=== PATIENT | female | born 1985 | race Caucasian/White ===

== ENCOUNTER → 2019-11-10 | Outpatient (CLI) | payer OTHER ==
[~2019-11-10] VITALS: Ht 167.6 cm; Wt 56.2 kg
[~2019-11-10] MED LIST: BOTOX THERAPEUTIC 100 UNIT VIAL (J0585 PER 1 UNIT) IM ONE; diazePAM 5 MG TAB As Ordered ONE; oxyCODONE 5MG TAB As Ordered ONE
--- NOTE | 2019-11-11 04:55 | ECWPNPC ---
PATIENT NAME: CHARANJIT POST : 1985 GENDER: FEMALE VISIT DATE: 11/10/2019 DISCHARGE DATE: 11/10/19 1338 VISIT LOCKED DATE TIME: PHYSICIAN: RELL WOO MD RESOURCE: RELL WOO MD REASON FOR APPOINTMENT 1. BOTOX HISTORY OF PRESENT ILLNESS GENERAL: -. FALL RISK SCREENING: SCREENING :NO FALLS REPORTED IN THE LAST YEAR PAIN SCREENING: PATIENT HAS A COMPLAINT OF ACUTE OR CHRONIC PAIN :YES 11/10/19 INTENSITY OF PAIN (SCALE OF 1 TO 10):1 WHAT DOES YOUR PAIN FEEL LIKE:INTERMITTENT, THROBBING DURATION:INTERMITTENT PAIN IS INCREASED BY: LIGHTS, LOUD NOISES PAIN IS DECREASED BY: BOTOX INJECTIONS, QUIET, DARKNESS NURSING NOTE: -. PAIN CENTER INTAKE QUESTIONS: DO YOU HAVE A HISTORY OF MRSA? :NO DO YOU TAKE A BLOOD THINNERS? :NO DO YOU HAVE ANY BLEEDING DISORDERS? :NO ANY NEW NUMBNESS OR WEAKNESS IN YOUR LEGS OR ARMS? :NO ANY PACEMAKER,DEFIBRILLATOR, OR DORSAL COLUMN STIMULATOR? :NO DO YOU HAVE ANY RASHES OR OPEN SORES? :NO ARE YOU ALLERGIC TO IV DYE? :NO ARE YOU DIABETIC? :NO ANY NEW PROBLEMS WITH YOUR MEDICATIONS? :NO HAVE YOU RECEIVED A VACCINE IN THE PAST 30 DAYS? :NO DO YOU PLAN TO RECEIVE A VACCINE IN THE NEXT 21 DAYS? :NO DO YOU TAKE ANY IMMUNOSUPPRESSIVE MEDICATIONS? :NO ANY HISTORY OF SEIZURES? :NO ANY HISTORY OF CARDIAC ISSUES OR EVENTS? :NO DO YOU HAVE SLEEP APNEA? : NO. ANY RECENT HEAD INJURY? :NO DO YOU HAVE ANY NEW INFECTIONS? :NO IS THERE A CHANCE YOU COULD BE ? :NO ARE YOU BREAST FEEDING? :NO WHEN DID YOU LAST EAT? : 11/09 020 WHEN DID YOU LAST DRINK? : 11/09 07 WHAT DID YOU LAST DRINK? : WATER NAME OF PERSON DRIVING YOU HOME? : - LAY DO YOU HAVE ANY OTHER QUESTIONS OR CONCERNS? : NO CURRENT MEDICATIONS TAKING CALCIUM + D 600-200 MG-UNIT TABLET 1 TABLET ORALLY ONCE A DAY, NOTES: 1 MONTH AGO TAKING CLONIDINE HCL 0.3 MG TABLET 2 TABLETS ORALLY ONCE A DAY, NOTES: 11/08 2200 TAKING BENADRYL 25 MG ORAL 3 TABLETS DIRECTED, NOTES: 11/08 1400 TAKING XANAX 1 MG TABLET 1 TABLET ORALLY DAILY, NOTES: 11/08 1000 TAKING ALPRAZOLAM ER 3 MG TABLET EXTENDED RELEASE 24 HOUR 1 TABLET IN THE MORNING ORALLY ONCE A DAY, NOTES: 11/08 699 TAKING GABAPENTIN 300 MG CAPSULE 1 CAPSULE ORALLY BID, NOTES: 11/09 699 TAKING EX-LAX 15 MG TABLET 1 TABLET AT BEDTIME NEEDED ORALLY DAILY, NOTES: 11/08 1700 TAKING ALBUTEROL EVERY 4 HOURS NEEDED, NOTES: MONTHS AGO TAKING VENLAFAXINE HCL ER 75 MG CAPSULE EXTENDED RELEASE 24 HOUR ORALLY ONCE A DAY, NOTES: 11/09 699 TAKING LINZESS 290 MCG CAPSULE 1 CAPSULE ORALLY ONCE A DAY, NOTES: 11/09 699 TAKING BUSPIRONE HCL 7.5 MG TABLET 1 TABLET ORALLY TWICE A DAY, NOTES: 11/09 699 TAKING NORCO 5-325 MG TABLET 1 TABLET NEEDED ORALLY Q8H TID MDD3, NOTES: 11/09 1999 NOT-TAKING COLACE 100 MG CAPSULE 1 CAPSULE NEEDED ORALLY BID NOT-TAKING METFORMIN HCL ER 500 MG TABLET EXTENDED RELEASE 24 HOUR 3 TABLET ORALLY DAILY AT BEDTIME NOT-TAKING VITAMIN C 500 MG TABLET 1 TABLET ORALLY ONCE A DAY NOT-TAKING PROBIOTIC TABLET DELAYED RELEASE 1 CAPSULE ORALLY DAILY, NOTES: MONTHS AGO NOT-TAKING SELEGILINE HCL 5 MG TABLET 1 TABLET WITH BREAKFAST AND LUNCH ORALLY TWICE A DAY NOT-TAKING SINGULAIR 10 MG TABLET 1 TABLET IN THE EVENING ORALLY ONCE A DAY NOT-TAKING TRAMADOL HCL 50 MG TABLET 1/2 - 1 TABLET ORALLY EVERY 6 -8 HRS PRN PAIN NOT-TAKING DICLOFENAC POTASSIUM 50 MG TABLET 1 TABLET ORALLY TWICE A DAY, NOTES: NONE RECENT-DIDN'T HELP MEDICATION LIST REVIEWED AND RECONCILED WITH THE PATIENT PAST MEDICAL HISTORY SCOLIOSIS - MINIMAL DEXTRO-CONVEX CURVATURE - SCOLIOSIS SERIES ON 01/2009 ENDOMETRIOSIS ON LUPRON FOR INTERMITT 2 YEARS/ S/P 2 LASER LAPROSCOPIES OSTEOPOROSIS/OSTEOPENIA DUE TO LUPRON RX/ DEXA SCAN ON 03/2009 LUMBAR SPINE NORMAL BMD FOR AGE OCD/ SOCIAL ANXIETY/ BULEMIA NERVOSA PURGING TYPE/ DEPRESSIVE DISORDER/ ANXIETY PSORIASIS/SEBORRHEIC DERMATITIS RIGHT HALLUX VALGUS DEFORMITY S/P RT BUNIONECTOMY 2010 GANGLION LEFT HAND- W/ NL RADIOGRAPH S/P SURGICALLY REMOVED BULIMIA NERVOSA PURGING TYPE POLYCYSTIC OVARIES MIGRAINE ALLERGIC RHINITIS SINUS INFECTION ALLERGIES ENVIRONMENTAL: STUFFY NOSE, ITCHY EYES, SOMETIMES HIVES TYLENOL: CONTRAINDICATION DUE TO GENE MUTATION - CONTRAINDICATION DERMABOND: RASH - ALLERGY SURGICAL HISTORY LASER LAPAROSCOPY FOR ENDOMETRIOSIS WITH FINDING OF MINIMAL ENDOMETRIOSIS WISDOM TOOTH RT BUNIONECTOMY 07/2009 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 MENTAL DISORDER AND COMMITTED SUICIDE, DM PATERNAL GRAND MOTHER: , DM MATERNAL GRAND FATHER: , ? CANCER MATERNAL GRAND MOTHER: , HEART ATTACK, DM SOCIAL HISTORY GENERAL: TOBACCO USE ARE YOU A:CURRENT SMOKER ARE YOU INTERESTED IN QUITTING?THINKING ABOUT QUITTING HAS CUT DOWN ON # OF CIGS/DAY COUNSELED THE PATIENT ON SMOKING CESSATION, EDUCATION CFWFCERE02/19/2020 HOW MANY CIGARETTES A DAY DO YOU SMOKE?5 OR LESS HOW SOON AFTER YOU WAKE UP DO YOU SMOKE YOUR FIRST CIGARETTE?AFTER 60 MIN HOW OFTEN DO YOU SMOKE CIGARETTES?SOME DAYS, BUT NOT EVERY DAY PATIENT COUNSELED ON THE DANGERS OF TOBACCO USE AND URGED TO QUIT:11/10/2019 ADDITIONAL FINDINGS: TOBACCO USER STATES CAN GO A LONG TIME WITHOUT SMOKING WITH NO SIDE EFFECTS SMOKING CESSATION INFORMATION GIVEN02/04/2019 LATEX QUESTIONNAIRE LATEX ALLERGY : HAVE YOU EVER DEVELOPED ANY TYPE OF REACTION AFTER HANDLING LATEX PRODUCTS SUCH RUBBER GLOVES, CONDOMS, DIAPHRAGMS, BALLOONS, SOCKS, OR UNDERWEAR?NO LATEX ALLERGY : HAVE YOU EVER DEVELOPED ANY TYPE OF REACTION DURING OR AFTER DENTAL APPOINTMENT, VAGINAL/RECTAL EXAMINATION, SURGICAL PROCEDURE, OR ANY OTHER EXPOSURE?NO LATEX RISK : HAVE YOU EVER HAD ANY DIFFICULTY BREATHING OR HIVES AFTER EATING OR HANDLING ANY FRUITS, OR VEGETABLES; SUCH KIWI, BANANAS, STONE FRUITS, OR CHESTNUTSNO LATEX RISK : DO YOU HAVE A PREVIOUS PERSONAL HISTORY OF MORE THAN NINE SURGERIES, SPINA BIFIDA, OR REPEATED CATHERIZATIONS? NO LATEX RISK : ARE YOU FREQUENTLY EXPOSED TO LATEX PRODUCTS IN YOUR OCCUPATION?NO DATE ASKED : 11/10/2019 ALCOHOL SCREENING DID YOU HAVE A DRINK CONTAINING ALCOHOL IN THE PAST YEAR?YES HOW MANY DRINKS DID YOU HAVE ON A TYPICAL DAY WHEN YOU WERE DRINKING IN THE PAST YEAR?1 OR 2 (0 POINTS) HOW OFTEN DID YOU HAVE A DRINK CONTAINING ALCOHOL IN THE PAST YEAR?MONTHLY OR LESS (1 POINT) POINTS1 INTERPRETATIONNEGATIVE RECREATIONAL DRUG USE DRUG USE?NO CAFFEINE CAFFEINE USE?YES COFFEE SODA SEXUAL HX HAD SEX IN THE LAST 12 MONTHS (VAGINAL, ORAL, OR ANAL)?YES WITHMEN ONLY PREVENTION STRATEGIES DISCUSSED:OTHER USE PROTECTION?NO LMP:09/29/2016 HAVE YOU EVER HAD AN STD?NO HIV / HEP-C SCREENING HIV TEST OFFERED TO PATIENT:YES DATE OFFERED:05/29/2016 TEST ACCEPTED:NO HEP-C TEST OFFERED TO PATIENT:NO N/A REASON:PATIENT DECLINED QUAKER [id number] RASTAFARI LANGUAGE LANGUAGES SPOKEN:JORDANIAN EDUCATION LEVEL OF EDUCATION:COLLEGE LEARNING BARRIERS / SPECIAL NEEDS CHANGE FROM LAST VISIT?NO BARRIERS TO LEARNING?NO HEARING IMPAIRED?NO VISION IMPAIRED?YES :CORRECTIVE LENSES COGNITIVELY IMPAIRED?NO READINESS TO LEARN?YES LEARNING PREFERENCES?YES :HANDOUTS, DEMONSTRATION/VERBAL INSTRUCTION LEARNING CAPABILITIES PRESENT?YES EMOTIONAL BARRIERS?NO SPECIAL DEVICES?NO LOSS PREVENTION AGENT NEEDED?NO DOMESTIC VIOLENCE DO YOU FEEL SAFE IN YOUR ENVIRONMENT?YES DIET: REGULAR. EXERCISE: WALKS. MARITAL STATUS: . PAIN CLINIC PFS, CLERGY, PUBLIC HEALTH REFERRALS PFS REFERRAL NEEDED?NO CLERGY REFERRAL NEEDED?NO PUBLIC HEALTH REFERRAL NEEDED?NO HAS THE PATIENT BEEN EDUCATED REGARDING HIS/HER PLAN OF CARE?YES HAS THE PATIENT BEEN EDUCATED REGARDING PAIN, THE RISK FOR PAIN, THE IMPORTANCE OF EFFECTIVE PAIN MANAGEMENT, AND THE PAIN ASSESSMENT PROCESS?YES ADVANCE DIRECTIVE ADVANCE DIRECTIVE DISCUSSED WITH PATIENT:YES 11/10/2019 PT DOES NOT HAVE ANY ADVANCED DIRECTIVES AND SHE STATES SHE ALREADY HAS INFORMATION ON HCP. DECLINES ASSISTANCE AT THIS TIME. HOSPITALIZATION/MAJOR DIAGNOSTIC PROCEDURE MONO 2006 IN CHILDHOOD LUNG REASON VITAL SIGNS WT 124.2 LBS, HT 66 IN, BMI 20.04 INDEX, BP 91/54 MM HG, HR 74 /MIN, RR 18 /MIN, TEMP 98.2 F, OXYGEN SAT % 99%, SAFE IN ENV? (Y/N) Y, NA INITIALS AW 1200, REVIEWED BY: AD. EXAMINATION GENERAL EXAMINATION: THE PATIENT IS ALERT, ORIENTED TIMES THREE AND COOPERATIVE. HEART SHOWS REGULAR RHYTHM, NO MURMURS AND NO GALLOPS. LUNGS ARE CLEAR TO AUSCULTATION. ASSESSMENTS CHRONIC MIGRAINE - G43.709 (PRIMARY) TREATMENT OTHERS CLINICAL NOTES: PRE SCREENING CALL DONE 11/07/19 EM. PROCEDURES PAIN NURSING RECORD PRE-PROCEDURE IV SITE N/A, PRE-PROCEDURE ORAL MEDICATIONS 1223 VALIUM 10MGS, OXYCODONE 10 MGS PO BY Gabrielle RAMÍREZ RN PROCEDURE IN ROOM 1200, PHYSICIAN IN ROOM 1257, START 1302, FINISH 1317, PHYSICIAN OUT OF ROOM 1318, OUT OF ROOM 1334, STEROID N/A, O2 RA, ECG N/A, PATIENT SHIELDED NO, SAFETY STRAP NO, PREP ALCOHOL DR. WOO, IV INFUSED N/A, DRESSING N/A LOC: CORONA RAMÍREZ 11/10/201912:42:36 PM > 1. ALERT, ORIENTED RESP: CORONA RAMÍREZ 11/10/2019 12:42:34 PM > 1. REGULAR, NO DYSPNEA COLOR: CORONA RAMÍREZ 11/10/2019 12:42:51 PM > 1. PINK SKIN: ORBIN RAMÍREZITA 11/10/2019 12:42:54 PM > 1. WARM, DRY POSITION: 4. OTHER-SUPINE AND SITTING VITALS: CORONA RAMÍREZ 11/10/2019 1:22:27 PM > 112/53,62,16,98% DISCHARGE: POST PAIN 07/28- HEADACHE, DRESSING SITE NO DRESSING, IV N/A, GAIT STEADY, TEACHING COMPLETED, PATIENT ACKNOWLEDGES UNDERSTANDING YES, PATIENT DISCHARGED AT 1334 PN BOTOX INJECTIONS SUBSEQUENT INJECTIONS PRE PROCEDURE DIAGNOSIS CHRONIC MIGRAINE HEADACHES POST PROCEDURE DIAGNOSIS CHRONIC MIGRAINE HEADACHES PROCEDURE BOTOX INJECTION AT THE HEAD, NECK AND SHOULDERS SURGEON DR. RELL WOO MICA MINER BLASTING NONE ANESTHESIA NONE PRE PROCEDURE NOTE THE PATIENT HAS A HISTORY OF CHRONIC MIGRAINE HEADACHES. I EVALUATED THE PATIENT AND REVIEWED THE CHART. I WENT OVER THE RISKS, ALTERNATIVES, AND BENEFITS ASSOCIATED WITH THIS PROCEDURE. THE PATIENT WOULD LIKE TO PROCEED AND GAVE CONSENT TO PERFORM THE PROCEDURE. THE PATIENT DENIES UNEXPLAINABLE WEIGHT LOSS, FEVER, CHILLS, OR NEW CHANGES IN URINARY OR BOWEL CONTROL. THE PATIENT DID A BOTOX INJECTION AT THE HEAD, NECK AND SHOULDERS 3 MONTHS AGO, IN [place], AND EXPRESSED MORE THAN 50% REDUCTION ON THE FREQUENCY AND INTENSITY OF THE HEADACHES. THE PATIENT STATES THAT SHE IS ONLY HAVING 3 HEADACHES PER MONTH. THE PATIENT SAID THAT THE USE OF BOTOX HAS REDUCED SIGNIFICANTLY THE SEVERITY OF THE HEADACHES. THE PATIENT WOULD LIKE TO PROCEED WITH THIS PROCEDURE AGAIN TODAY. THE PATIENT IS COVID-19 NEGATIVE DESCRIPTION OF PROCEDURE THE PATIENT WAS BROUGHT TO THE PROCEDURE ROOM AND PLACED IN THE SUPINE POSITION. I CHECKED LATERALITY AND THE AREAS WHERE THE PROCEDURE WAS GOING TO BE PERFORMED WITH THE PATIENT AND THE SUPPORTING STAFF AT THE MOMENT OF THE TIME OUT IN THE PROCEDURE ROOM. FOR THE PROCEDURE I USED A SOLUTION OF 5 UNITS OF BOTOX PER EACH 0.1 ML OF THE SOLUTION. I USED A 30-GAUGE NEEDLE TO INJECT THE SOLUTION AT THE SELECTED LOCATIONS. I INJECTED FIRST THE RIGHT AND LEFT CONDENSER TUBE TENDER MUSCLES. THE LANDMARK FOR BOTH INJECTIONS WAS APPROXIMATELY 1 CM ABOVE THE SUPERIOR MEDIAL EDGE OF THE EYEBROW. AFTER THESE TWO INJECTIONS, I INJECTED THE PROCERUS MUSCLE AT THE MIDLINE POINT BETWEEN THESE FIRST TWO INJECTIONS. THEN I PROCEEDED TO INJECT THE RIGHT AND LEFT FRONTALIS MUSCLE. TWO INJECTIONS WERE DONE IN EACH SIDE. THE FIRST INJECTION WAS DONE APPROXIMATELY 2 CM ABOVE THE FIRST INJECTION OF THE CONDENSER TUBE TENDER. THE SECOND INJECTION WAS DONE APPROXIMATELY 1.5 CM LATERAL TO THIS FIST INJECTION OF THE FRONTALIS OF EACH SIDE. AFTER THE INJECTIONS OVER THE FOREHEAD WERE DONE, THE PATIENT'S HEAD WAS TURNED TO THE LEFT SIDE AND WE STARTED TO WORK WITH THE RIGHT TEMPORALIS MUSCLE. FIRST INJECTION WAS DONE IN A VERTICAL LINE OF THE TRAGUS APPROXIMATELY 3 CM ABOVE THE TRAGUS. THE SECOND INJECTION WAS DONE APPROXIMATELY 2 CM ABOVE THE FIRST INJECTION. THE THIRD INJECTION WAS DONE APPROXIMATELY 1 CM FRONTWARD FROM THIS VERTICAL LINE CREATED AT THE LEVEL OF THE TRAGUS, PRISON BETWEEN THESE TWO INJECTIONS. THE FOURTH INJECTION WAS DONE APPROXIMATELY 1.5 CM BACK FROM THE SECOND INJECTION TO THE TEMPORALIS IN LINE TO THE MIDPORTION OF THE EAR. THEN, WE PROCEEDED TO INJECT THE LEFT TEMPORALIS MUSCLE. WE CLEANED THE AREA WITH ALCOHOL AND PROCEEDED TO PERFORM THE SAME FOR INJECTIONS DESCRIBED ABOVE BUT IN THE LEFT TEMPORALIS MUSCLE USING THE SAME LANDMARKS. AFTER THESE INJECTIONS WERE DONE, THE PATIENT WAS SEATED. FIRST, WE STARTED TO INJECT THE LEFT AND RIGHT OCCIPITALIS MUSCLE. I INJECTED AT THE FOLLOWING PLACES IN THE RIGHT AND LEFT MUSCLE. THE FIRST INJECTION WAS DONE AT THE MIDPOINT POSITION BETWEEN THE MASTOID PROCESS AND THE INION OF THE OCCIPITAL PROTUBERANCE. THE SECOND INJECTION WAS DONE APPROXIMATELY 1.5 CM SUPERIOR AND LATERAL OF THIS POINT. THE THIRD INJECTION WAS DONE APPROXIMATELY 1.5 CM SUPERIOR AND MEDIAL TO THIS FIRST INJECTION. NEXT, I PROCEEDED TO INJECT THE RIGHT AND LEFT PARASPINAL MUSCLES. LANDMARK OF THE INJECTION WERE APPROXIMATELY: FIRST INJECTION 3 CM BELOW THE INION AND 1 CM LATERAL TO THE MIDLINE AND SECOND INJECTION AT EACH SIDE WAS DONE APPROXIMATELY 1.5 CM SUPERIOR AND LATERAL OF THE FIRST INJECTION. THE LAST GROUP OF INJECTIONS WAS DONE OVER THE RIGHT AND LEFT TRAPEZIUS MUSCLE OVER THE SHOULDER AREA. THE FIRST INJECTION WAS DONE AT THE MIDPOINT BETWEEN THE INFLECTION POINT BETWEEN THE NECK AND SHOULDER AND THE ACROMION. THE SECOND AND THIRD INJECTIONS WERE DONE APPROXIMATELY 2.5 CM LATERAL AND MEDIAL FROM THIS FIRST INJECTION. SAME TARGETS WERE USED IN THE RIGHT AND LEFT SIDE. IN TOTAL, I INJECTED 155 UNITS OF BOTOX. PROCEDURE WAS DONE WITHOUT EVIDENCE OF PARESTHESIA, PNEUMOTHORAX, OR ANY COMPLICATIONS. THE PATIENT TOLERATED THE PROCEDURE VERY WELL. EBL LESS THAN 5 ML. THE PATIENT WAS SENT TO THE RECOVERY ROOM FOR OBSERVATIONS. INJECTIONS WERE DONE AFTER CLEANING WITH ALCOHOL, USING ASEPTIC TECHNIQUES POST PROCEDURE NOTE THE PROCEDURE WAS DISCUSSED WITH THE PATIENT. THE PATIENT WILL BE SEEN IN A FOLLOW UP IN THE NEXT FEW WEEKS. I AM LOOKING FOR LONG LASTING PAIN RELIEF FOR THE PATIENT WITH THIS INTERVENTION. INSTRUCTIONS WERE GIVEN, QUESTIONS WERE ANSWERED, AND THE PATIENT EXPRESSED UNDERSTANDING AND AGREED WITH THE PLAN. I, NATALIE CUETO, DOCUMENTED THE ABOVE INFORMATION ACTING A SCRIBE FOR DR. WOO. I HAVE REVIEWED THE ABOVE DOCUMENT, WRITTEN BY NATALIE CUETO, HOME HEALTH NURSE, AND I VERIFY THAT IT IS ACCURATE PROCEDURE CODES 84990 CHEMODENERV MUSC MIGRAINE DISPOSITION & COMMUNICATION FOLLOW UP F/UP WITH LOCOMOTIVE CRANE OPERATOR (REASON: POST BOTOX) ELECTRONICALLY SIGNED BY RELL WOO MD, MD ON 11/10/2019 AT 04:57 PM EDT DISCLAIMER : THIS IS A VISIT SUMMARY EXTRACTED FROM THE [employer] CHART. IT IS NOT A COPY OF THE [employer] PROGRESS NOTE. MTDLeandra
== END ==
LOC: EDSEX 11:45 → M PAIN 11:45
PROVIDERS: ATTEND Anesthesiology
DX: G43.709 Chronic migraine without aura, not intractable, without status migrainosus (principal)
CPT/HCPCS: 64615; J0585

== ENCOUNTER → 2019-11-17 | Outpatient (CLI) | payer OTHER ==
[~2019-11-17] MED LIST changes: -BOTOX THERAPEUTIC 100 UNIT VIAL (J0585 PER 1 UNIT) IM ONE; +BUPIVACAINE HCL 0.25% 10ML VIAL As Ordered ONE; +BUPIVACAINE HCL 0.25% 30ML VIAL As Ordered ONE; +NORCO, ANEXSIA 5/325MG TABLET (HYDROcodone/ACETAMINOPHEN) As Ordered ONE; +TRIAMCINOLONE ACETONIDE SUSP 40 MG/ML VIAL (J3301) As Ordered ONE; -oxyCODONE 5MG TAB As Ordered ONE
--- NOTE | 2019-11-17 23:24 | ECWPNPC ---
PATIENT NAME: CHARANJIT POST : 1985 GENDER: FEMALE VISIT DATE: 11/17/2019 DISCHARGE DATE: 11/17/19 1602 VISIT LOCKED DATE TIME: PHYSICIAN: RELL WOO MD RESOURCE: RELL WOO MD REASON FOR APPOINTMENT 1. NECK//SHOULDERS HISTORY OF PRESENT ILLNESS GENERAL: -. FALL RISK SCREENING: SCREENING :NO FALLS REPORTED IN THE LAST YEAR PAIN SCREENING: PATIENT HAS A COMPLAINT OF ACUTE OR CHRONIC PAIN :YES LOCATION OF PAIN:HEAD, NECK, LEFT SHOULDER, RIGHT SHOULDER, UPPER BACK, LOW BACK INTENSITY OF PAIN (SCALE OF 1 TO 10): 10/28 WHAT DOES YOUR PAIN FEEL LIKE:SHARP, TENDER DURATION:CONSTANT PAIN IS INCREASED BY:PROLONGED STANDING, OTHERS HORSEBACK RIDING PAIN IS DECREASED BY:USE OF PAIN MEDICATIONS NURSING NOTE: -. PAIN CENTER INTAKE QUESTIONS: DO YOU HAVE A HISTORY OF MRSA? :NO DO YOU TAKE A BLOOD THINNERS? :NO DO YOU HAVE ANY BLEEDING DISORDERS? :NO ANY NEW NUMBNESS OR WEAKNESS IN YOUR LEGS OR ARMS? :NO ANY PACEMAKER,DEFIBRILLATOR, OR DORSAL COLUMN STIMULATOR? :NO DO YOU HAVE ANY RASHES OR OPEN SORES? :NO ARE YOU ALLERGIC TO IV DYE? :NO ARE YOU DIABETIC? :NO ANY NEW PROBLEMS WITH YOUR MEDICATIONS? :NO HAVE YOU RECEIVED A VACCINE IN THE PAST 30 DAYS? :NO DO YOU PLAN TO RECEIVE A VACCINE IN THE NEXT 21 DAYS? :NO DO YOU TAKE ANY IMMUNOSUPPRESSIVE MEDICATIONS? :NO ANY HISTORY OF SEIZURES? :NO ANY HISTORY OF CARDIAC ISSUES OR EVENTS? :NO DO YOU HAVE SLEEP APNEA? :NO ANY RECENT HEAD INJURY? :NO DO YOU HAVE ANY NEW INFECTIONS? :NO IS THERE A CHANCE YOU COULD BE ? :NO ARE YOU BREAST FEEDING? :NO WHEN DID YOU LAST EAT? : -209910/21/19 WHEN DID YOU LAST DRINK? : -11/17/19 0500 WHAT DID YOU LAST DRINK? : -DIET PEPSI NAME OF PERSON DRIVING YOU HOME? : -ONE OF HER IN-LAWS DO YOU HAVE ANY OTHER QUESTIONS OR CONCERNS? : -NO CURRENT MEDICATIONS TAKING CALCIUM + D 600-200 MG-UNIT TABLET 1 TABLET ORALLY ONCE A DAY, NOTES: NONE RECENTLY TAKING CLONIDINE HCL 0.3 MG TABLET 2 TABLETS ORALLY ONCE A DAY, NOTES: 11/16/19 2100 TAKING BENADRYL 25 MG ORAL 3 TABLETS DIRECTED, NOTES: 399 11/17/19 TAKING XANAX 1 MG TABLET 1 TABLET ORALLY DAILY, NOTES: 11/16/19 1500 TAKING ALPRAZOLAM ER 3 MG TABLET EXTENDED RELEASE 24 HOUR 1 TABLET IN THE MORNING ORALLY ONCE A DAY, NOTES: 11/16/19 0900 TAKING GABAPENTIN 300 MG CAPSULE 1 CAPSULE ORALLY BID, NOTES: TAKING EX-LAX 15 MG TABLET 1 TABLET AT BEDTIME NEEDED ORALLY DAILY, NOTES: NONE RECENTLY TAKING VENLAFAXINE HCL ER 75 MG CAPSULE EXTENDED RELEASE 24 HOUR ORALLY ONCE A DAY, NOTES: 05011/17/19 TAKING LINZESS 290 MCG CAPSULE 1 CAPSULE ORALLY ONCE A DAY, NOTES: 05011/17/19 TAKING BUSPIRONE HCL 15 MG TABLET 1 TABLET ORALLY TWICE A DAY, NOTES: 49911/17/19 TAKING NORCO 5-325 MG TABLET 1 TABLET NEEDED ORALLY Q8H TID MDD3, NOTES: 11/16/19 1900 TAKING ALBUTEROL SULFATE HFA 108 (90 BASE) MCG/ACT AEROSOL SOLUTION 1 PUFF NEEDED INHALATION EVERY 4 HRS, NOTES: 1 WEEK AGO NOT-TAKING ALBUTEROL EVERY 4 HOURS NEEDED NOT-TAKING COLACE 100 MG CAPSULE 1 CAPSULE NEEDED ORALLY BID NOT-TAKING METFORMIN HCL ER 500 MG TABLET EXTENDED RELEASE 24 HOUR 3 TABLET ORALLY DAILY AT BEDTIME NOT-TAKING VITAMIN C 500 MG TABLET 1 TABLET ORALLY ONCE A DAY NOT-TAKING PROBIOTIC TABLET DELAYED RELEASE 1 CAPSULE ORALLY DAILY NOT-TAKING SELEGILINE HCL 5 MG TABLET 1 TABLET WITH BREAKFAST AND LUNCH ORALLY TWICE A DAY NOT-TAKING SINGULAIR 10 MG TABLET 1 TABLET IN THE EVENING ORALLY ONCE A DAY NOT-TAKING TRAMADOL HCL 50 MG TABLET 1/2 - 1 TABLET ORALLY EVERY 6 -8 HRS PRN PAIN NOT-TAKING DICLOFENAC POTASSIUM 50 MG TABLET 1 TABLET ORALLY TWICE A DAY, NOTES: NONE RECENT-DIDN'T HELP MEDICATION LIST REVIEWED AND RECONCILED WITH THE PATIENT PAST MEDICAL HISTORY SCOLIOSIS - MINIMAL DEXTRO-CONVEX CURVATURE - SCOLIOSIS SERIES ON 01/2009 ENDOMETRIOSIS ON LUPRON FOR INTERMITT 2 YEARS/ S/P 2 LASER LAPROSCOPIES OSTEOPOROSIS/OSTEOPENIA DUE TO LUPRON RX/ DEXA SCAN ON 03/2009 LUMBAR SPINE NORMAL BMD FOR AGE OCD/ SOCIAL ANXIETY/ BULEMIA NERVOSA PURGING TYPE/ DEPRESSIVE DISORDER/ ANXIETY PSORIASIS/SEBORRHEIC DERMATITIS RIGHT HALLUX VALGUS DEFORMITY S/P RT BUNIONECTOMY 2010 GANGLION LEFT HAND- W/ NL RADIOGRAPH S/P SURGICALLY REMOVED BULIMIA NERVOSA PURGING TYPE POLYCYSTIC OVARIES MIGRAINE ALLERGIC RHINITIS SINUS INFECTION ALLERGIES ENVIRONMENTAL: STUFFY NOSE, ITCHY EYES, SOMETIMES HIVES TYLENOL: CONTRAINDICATION DUE TO GENE MUTATION - CONTRAINDICATION DERMABOND: RASH - ALLERGY SURGICAL HISTORY LASER LAPAROSCOPY FOR ENDOMETRIOSIS WITH FINDING OF MINIMAL ENDOMETRIOSIS WISDOM TOOTH RT BUNIONECTOMY 07/2009 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 MENTAL DISORDER AND COMMITTED SUICIDE, DM PATERNAL GRAND MOTHER: , DM MATERNAL GRAND FATHER: , ? CANCER MATERNAL GRAND MOTHER: , HEART ATTACK, DM SOCIAL HISTORY GENERAL: TOBACCO USE ARE YOU A:CURRENT SMOKER HOW OFTEN DO YOU SMOKE CIGARETTES?SOME DAYS, BUT NOT EVERY DAY HOW SOON AFTER YOU WAKE UP DO YOU SMOKE YOUR FIRST CIGARETTE?AFTER 60 MIN HOW MANY CIGARETTES A DAY DO YOU SMOKE?5 OR LESS ARE YOU INTERESTED IN QUITTING?THINKING ABOUT QUITTING HAS CUT DOWN ON # OF CIGS/DAY ADDITIONAL FINDINGS: TOBACCO USER STATES CAN GO A LONG TIME WITHOUT SMOKING WITH NO SIDE EFFECTS PATIENT COUNSELED ON THE DANGERS OF TOBACCO USE AND URGED TO QUIT:11/10/2019 COUNSELED THE PATIENT ON SMOKING CESSATION, EDUCATION [id number]/19/2020 SMOKING CESSATION INFORMATION GIVEN02/04/2019 LATEX QUESTIONNAIRE LATEX ALLERGY : HAVE YOU EVER DEVELOPED ANY TYPE OF REACTION AFTER HANDLING LATEX PRODUCTS SUCH RUBBER GLOVES, CONDOMS, DIAPHRAGMS, BALLOONS, SOCKS, OR UNDERWEAR?NO LATEX ALLERGY : HAVE YOU EVER DEVELOPED ANY TYPE OF REACTION DURING OR AFTER DENTAL APPOINTMENT, VAGINAL/RECTAL EXAMINATION, SURGICAL PROCEDURE, OR ANY OTHER EXPOSURE?NO DATE ASKED : 11/10/2019 LATEX RISK : HAVE YOU EVER HAD ANY DIFFICULTY BREATHING OR HIVES AFTER EATING OR HANDLING ANY FRUITS, OR VEGETABLES; SUCH KIWI, BANANAS, STONE FRUITS, OR CHESTNUTSNO LATEX RISK : DO YOU HAVE A PREVIOUS PERSONAL HISTORY OF MORE THAN NINE SURGERIES, SPINA BIFIDA, OR REPEATED CATHERIZATIONS? NO LATEX RISK : ARE YOU FREQUENTLY EXPOSED TO LATEX PRODUCTS IN YOUR OCCUPATION?NO ALCOHOL SCREENING DID YOU HAVE A DRINK CONTAINING ALCOHOL IN THE PAST YEAR?YES HOW MANY DRINKS DID YOU HAVE ON A TYPICAL DAY WHEN YOU WERE DRINKING IN THE PAST YEAR?1 OR 2 (0 POINTS) HOW OFTEN DID YOU HAVE A DRINK CONTAINING ALCOHOL IN THE PAST YEAR?MONTHLY OR LESS (1 POINT) POINTS1 INTERPRETATIONNEGATIVE RECREATIONAL DRUG USE DRUG USE?NO CAFFEINE CAFFEINE USE?YES COFFEE SODA SEXUAL HX HAD SEX IN THE LAST 12 MONTHS (VAGINAL, ORAL, OR ANAL)?YES WITHMEN ONLY PREVENTION STRATEGIES DISCUSSED:OTHER USE PROTECTION?NO LMP:09/29/2016 HAVE YOU EVER HAD AN STD?NO HIV / HEP-C SCREENING HIV TEST OFFERED TO PATIENT:YES DATE OFFERED:05/29/2016 TEST ACCEPTED:NO HEP-C TEST OFFERED TO PATIENT:NO N/A REASON:PATIENT DECLINED RESTORATIONISM [id number] PROTESTANT LANGUAGE LANGUAGES SPOKEN:SLOVENIAN EDUCATION LEVEL OF EDUCATION:COLLEGE LEARNING BARRIERS / SPECIAL NEEDS CHANGE FROM LAST VISIT?NO BARRIERS TO LEARNING?NO HEARING IMPAIRED?NO VISION IMPAIRED?YES COGNITIVELY IMPAIRED?NO :CORRECTIVE LENSES READINESS TO LEARN?YES LEARNING PREFERENCES?YES :HANDOUTS, DEMONSTRATION/VERBAL INSTRUCTION LEARNING CAPABILITIES PRESENT?YES EMOTIONAL BARRIERS?NO SPECIAL DEVICES?NO OPERATIONAL TRAINER NEEDED?NO DOMESTIC VIOLENCE DO YOU FEEL SAFE IN YOUR ENVIRONMENT?YES DIET: REGULAR. EXERCISE: WALKS. MARITAL STATUS: . PAIN CLINIC PFS, CLERGY, PUBLIC HEALTH REFERRALS PFS REFERRAL NEEDED?NO CLERGY REFERRAL NEEDED?NO PUBLIC HEALTH REFERRAL NEEDED?NO HAS THE PATIENT BEEN EDUCATED REGARDING HIS/HER PLAN OF CARE?YES HAS THE PATIENT BEEN EDUCATED REGARDING PAIN, THE RISK FOR PAIN, THE IMPORTANCE OF EFFECTIVE PAIN MANAGEMENT, AND THE PAIN ASSESSMENT PROCESS?YES ADVANCE DIRECTIVE ADVANCE DIRECTIVE DISCUSSED WITH PATIENT:YES 11/17/2019 PT DOES NOT HAVE ANY ADVANCED DIRECTIVES AND SHE STATES SHE ALREADY HAS INFORMATION ON HCP. DECLINES ASSISTANCE AT THIS TIME. HOSPITALIZATION/MAJOR DIAGNOSTIC PROCEDURE MONO 2006 IN CHILDHOOD LUNG REASON VITAL SIGNS WT 124 LBS, HT 66 IN, BMI 20.01 INDEX, BP 119/84 MM HG, HR 69 /MIN, RR 16 /MIN, TEMP 97.7 F, OXYGEN SAT % 99%, SAFE IN ENV? (Y/N) YES, NA INITIALS SC 13:50, REVIEWED BY: NIALL. EXAMINATION GENERAL EXAMINATION: THE PATIENT IS ALERT, ORIENTED TIMES THREE AND COOPERATIVE. HEART SHOWS REGULAR RHYTHM, NO MURMURS AND NO GALLOPS. LUNGS ARE CLEAR TO AUSCULTATION. ASSESSMENTS MYALGIA, OTHER SITE - M79.18 (PRIMARY) TREATMENT MYALGIA, OTHER SITE MEDICATION: VALIUM TAB 10MG ORALLY (DIAZEPAM)DALILA WALLACE RN 11/17/2019 2:44:23 PM > VERIFIED CORONA RAMÍREZ 11/17/2019 2:50:58 PM > GIVEN LOT #[id number] EXP DATE 04/2020 MEDICATION: NORCO TABLET 10 MG ORALLY (HYDROCODONE/ACETAMINOPHEN)DALILA WALLACE RN 11/17/2019 2:43:49 PM > VERIFIED CORONA RAMÍREZ 11/17/2019 2:52:23 PM > GIVEN LOT # [id number] EXP 01/2021 PROCEDURES PAIN NURSING RECORD PRE-PROCEDURE IV SITE N/A, PRE-PROCEDURE ORAL MEDICATIONS SEE ORDERS PROCEDURE IN ROOM 1350, PHYSICIAN IN ROOM 1531, START 1536, FINISH 1540, PHYSICIAN OUT OF ROOM 1342, STEROID KENALOG, O2 N/A, ECG N/A, PATIENT SHIELDED NO, SAFETY STRAP NO, PREP ALCOHOL DR. WOO, IV INFUSED N/A, DRESSING TEGADERM AMihai RAMÍREZ RN LOC: 1. ALERT, ORIENTED RESP: DESIREE,CORONA 11/17/2019 3:27:50 PM > 1. REGULAR, NO DYSPNEA COLOR: DESIREECORONA 11/17/2019 3:27:56 PM > 1. PINK SKIN: 1. WARM, DRY POSITION: ROBIN RAMÍREZITA 11/17/2019 3:28:04 PM > 4. OTHER-SITTING DISCHARGE: DRESSING SITE DRY AND INTACT, IV N/A, GAIT STEADY, TEACHING COMPLETED, PATIENT ACKNOWLEDGES UNDERSTANDING YES PN TRIGGER POINT INJECTION WITH STEROIDS PRE PROCEDURE DIAGNOSIS 1. MYALGIA 2. PAIN AT BILATERAL NECK AREA AND BILATERAL SHOULDER AREA POST PROCEDURE DIAGNOSIS 1. MYALGIA 2. PAIN AT BILATERAL NECK AREA AND BILATERAL SHOULDER AREA PROCEDURE TRIGGER POINT INJECTION AT BILATERAL NECK AREA AND BILATERAL SHOULDER AREA SURGEON DR. RELL WOO STEAM CONDITIONER FILLING NONE ANESTHESIA LOCAL PRE PROCEDURE NOTE THE PATIENT HAS A HISTORY OF CHRONIC PAIN AT THE RIGHT AND LEFT NECK AREA AND RIGHT AND LEFT SHOULDER AREA. I EVALUATED THE PATIENT AND REVIEWED THE CHART. THERE IS EVIDENCE OF BANDS OF TISSUE WITH RESTRICTION OF MOVEMENT AND PRESENCE OF TRIGGER POINT AT THE RIGHT AND LEFT NECK AREA AND RIGHT AND LEFT SHOULDER AREA. I WENT OVER THE RISKS, ALTERNATIVES, AND BENEFITS ASSOCIATED WITH THIS PROCEDURE. I DISCUSSED THAT THE USE OF STEROIDS MAY CONTRIBUTE TO IMMUNOSUPPRESSION OF THE PATIENT'S BODY AGAINST INFECTIONS SUCH COVID-19. THE PATIENT IS AWARE OF THE POTENTIAL COMPLICATIONS ASSOCIATED WITH THIS VIRUS, INCLUDING, BUT NOT LIMITED TO, . I DISCUSSED THE USE OF DEXAMETHASONE INSTEAD OF KENALOG; HOWEVER, THE PATIENT WOULD LIKE TO MOVE FORWARD WITH KENALOG. THE PATIENT WOULD LIKE TO PROCEED AND GIVE CONSENT TO PERFORMED THE PROCEDURE. THE PATIENT DENIES UNEXPLAINABLE WEIGHT LOSS, FEVER, CHILLS, OR NEW CHANGES IN URINARY OR BOWEL CONTROL. THE PATIENT IS COVID-19 NEGATIVE DESCRIPTION OF PROCEDURE THE PATIENT WAS BROUGHT TO THE PROCEDURE ROOM AND PLACED IN THE SITTING POSITION. THE AREA WAS CLEANED WITH ALCOHOL. THE PROCEDURE WAS DONE USING ASEPTIC STERILE TECHNIQUE. I CHECKED LATERALITY AND THE LEVEL WHERE THE PROCEDURE WAS GOING TO BE PERFORMED WITH THE PATIENT AND THE SUPPORTING STAFF AT THE MOMENT OF THE TIME OUT IN THE PROCEDURE ROOM. USING A 25-GAUGE NEEDLE, TRIGGER POINTS WERE INJECTED AT THE RIGHT AND LEFT NECK AND RIGHT AND LEFT SHOULDER AREA WITH A TOTAL OF 40 ML OF BUPIVACAINE 0.25% AND KENALOG 40 MG. THERE WAS NO EVIDENCE OF BLOOD, PARESTHESIA OR CEREBROSPINAL FLUID DURING THE PROCEDURE. THE PATIENT WAS SENT TO THE RECOVERY ROOM. THE PATIENT WAS MOVING THE EXTREMITIES AND DOING WELL. THERE WAS NO COMPLICATION DURING THE PROCEDURE. EBL LESS THAN 5 ML POST PROCEDURE NOTE THE PROCEDURE DONE WAS DISCUSSED WITH THE PATIENT. THE PATIENT WILL BE SEEN IN A FOLLOW UP IN THE NEXT FEW WEEKS. I AM LOOKING FOR LONG LASTING PAIN RELIEF FOR THE PATIENT WITH THIS INTERVENTION. INSTRUCTIONS WERE GIVEN, QUESTIONS WERE ANSWERED, AND THE PATIENT EXPRESSED UNDERSTANDING AND AGREES WITH THE PLAN. THE PATIENT IS AWARE TO STAY HOME FOR THE NEXT WEEK, IF POSSIBLE, DUE TO COVID-19. I, NATALIE CUETO, DOCUMENTED THE ABOVE INFORMATION ACTING A SCRIBE FOR DR. WOO. I HAVE REVIEWED THE ABOVE DOCUMENT, WRITTEN BY NATALIE CUETO, CHORE TENDER, AND I VERIFY THAT IT IS ACCURATE PROCEDURE CODES 82485 INJECT TRIGGER POINTS 3/> DISPOSITION & COMMUNICATION FOLLOW UP F/UP WITH MARINE PIPEFITTER HELPER (REASON: POST TPI RACHEAL NECK AND SHOULDERS) ELECTRONICALLY SIGNED BY RELL WOO MD, MD ON 11/17/2019 AT 04:52 PM EDT DISCLAIMER : THIS IS A VISIT SUMMARY EXTRACTED FROM THE [employer] CHART. IT IS NOT A COPY OF THE [employer] PROGRESS NOTE. MTDD
== END ==
LOC: M PAIN 13:30
PROVIDERS: ATTEND Anesthesiology
DX: M79.18 Myalgia, other site (principal)
CPT/HCPCS: 20553; J3301

== ENCOUNTER → 2020-03-30 | Outpatient (CLI) | payer OTHER ==
--- NOTE | 2020-04-01 00:05 | ECWPNPC ---
PATIENT NAME: CHARANJIT POST : 1985 GENDER: FEMALE VISIT DATE: 03/30/2020 DISCHARGE DATE: 03/30/20 1443 VISIT LOCKED DATE TIME: PHYSICIAN: IRGO DUBOIS RESOURCE: RIGO DUBOIS REASON FOR APPOINTMENT 1. MED MANAGEMENT HISTORY OF PRESENT ILLNESS GENERAL: HERE FOR FOLLOW-UP OF CHRONIC MIGRAINE HEADACHE AND BACK PAIN. IT IS BEEN SEVERAL MONTHS SINCE SHE HAS RECEIVED BOTOX THERAPY. REPORTING SIGNIFICANT INCREASE IN HEADACHE OVER THE PAST 6 MONTHS. REPORTING GREATER THAN 15 HEADACHE DAYS PER MONTH LASTING MORE THAN 8 HOURS. COMPLAINING OF INCREASE IN LOW BACK PAIN OVER THE PAST FEW MONTHS. PAIN IS AGGRAVATED BY LAYING ON HER STOMACH OR WITH PROLONGED STANDING. REVIEWED MRI OF THE LS SPINE AND DISCUSSED TREATMENT PLAN. -. FALL RISK SCREENING: SCREENING :NO FALLS REPORTED IN THE LAST YEAR PAIN SCREENING: PATIENT HAS A COMPLAINT OF ACUTE OR CHRONIC PAIN :YES LOCATION OF PAIN: LOW BACK, MID BACK, UPPER BACK, NECK INTENSITY OF PAIN (SCALE OF 1 TO 10):6 WHAT DOES YOUR PAIN FEEL LIKE:OTHER DULL DURATION:CONSTANT, CONTINOUS PAIN IS INCREASED BY:ACTIVITIES, PROLONGED STANDING PLAN/GOALS/TREATMENT/INTERVENTION/FOLLOW UP:SEE PLAN NURSING NOTE: -. PAIN CENTER INTAKE QUESTIONS: DO YOU HAVE A HISTORY OF MRSA? :NO DO YOU TAKE A BLOOD THINNERS? :NO DO YOU HAVE ANY BLEEDING DISORDERS? :NO ANY NEW NUMBNESS OR WEAKNESS IN YOUR LEGS OR ARMS? :NO ANY PACEMAKER,DEFIBRILLATOR, OR DORSAL COLUMN STIMULATOR? :NO DO YOU HAVE ANY RASHES OR OPEN SORES? :NO ARE YOU ALLERGIC TO IV DYE? :NO ARE YOU DIABETIC? :NO TAKES METFORMIN FOR PCOS ANY NEW PROBLEMS WITH YOUR MEDICATIONS? :NO HAVE YOU RECEIVED A VACCINE IN THE PAST 30 DAYS? :NO DO YOU PLAN TO RECEIVE A VACCINE IN THE NEXT 21 DAYS? :NO DO YOU NEED ANY PRESCRIPTION? :NO DO YOU TAKE ANY IMMUNOSUPPRESSIVE MEDICATIONS? :NO IS THERE A CHANCE YOU COULD BE ? :NO ARE YOU BREAST FEEDING? :NO CURRENT MEDICATIONS TAKING CALCIUM + D 600-200 MG-UNIT TABLET 1 TABLET ORALLY ONCE A DAY, NOTES: NONE RECENTLY TAKING CLONIDINE HCL 0.3 MG TABLET 2 TABLETS ORALLY ONCE A DAY, NOTES: 11/16/19 2100 TAKING BENADRYL 25 MG ORAL 3 TABLETS DIRECTED, NOTES: 0400 11/17/19 TAKING XANAX 1 MG TABLET 1 TABLET ORALLY BID, NOTES: 11/16/19 1500 TAKING ALPRAZOLAM ER 2 MG TABLET EXTENDED RELEASE 24 HOUR 1 TABLET IN THE MORNING ORALLY ONCE A DAY, NOTES: 11/16/19 0900 TAKING GABAPENTIN 300 MG CAPSULE 1 CAPSULE ORALLY BID, NOTES: 11/15/201600 TAKING EX-LAX 15 MG TABLET 1 TABLET AT BEDTIME NEEDED ORALLY DAILY, NOTES: NONE RECENTLY TAKING VENLAFAXINE HCL ER 75 MG CAPSULE EXTENDED RELEASE 24 HOUR ORALLY ONCE A DAY, NOTES: 05011/17/19 TAKING LINZESS 290 MCG CAPSULE 1 CAPSULE ORALLY ONCE A DAY, NOTES: 49911/17/19 TAKING BUSPIRONE HCL 15 MG TABLET 1 TABLET ORALLY TWICE A DAY, NOTES: 49911/17/19 TAKING ALBUTEROL SULFATE HFA 108 (90 BASE) MCG/ACT AEROSOL SOLUTION 1 PUFF NEEDED INHALATION EVERY 4 HRS, NOTES: 1 WEEK AGO TAKING NORCO 5-325 MG TABLET 1 TABLET NEEDED ORALLY Q8H TID MDD3, NOTES: 11/16/19 1900 TAKING TRAZODONE HCL 50 MG TABLET 1 TABLET AT BEDTIME NEEDED ORALLY ONCE A DAY NOT-TAKING ALBUTEROL EVERY 4 HOURS NEEDED NOT-TAKING COLACE 100 MG CAPSULE 1 CAPSULE NEEDED ORALLY BID NOT-TAKING METFORMIN HCL ER 500 MG TABLET EXTENDED RELEASE 24 HOUR 3 TABLET ORALLY DAILY AT BEDTIME NOT-TAKING VITAMIN C 500 MG TABLET 1 TABLET ORALLY ONCE A DAY NOT-TAKING PROBIOTIC TABLET DELAYED RELEASE 1 CAPSULE ORALLY DAILY NOT-TAKING SELEGILINE HCL 5 MG TABLET 1 TABLET WITH BREAKFAST AND LUNCH ORALLY TWICE A DAY NOT-TAKING SINGULAIR 10 MG TABLET 1 TABLET IN THE EVENING ORALLY ONCE A DAY NOT-TAKING TRAMADOL HCL 50 MG TABLET 1/2 - 1 TABLET ORALLY EVERY 6 -8 HRS PRN PAIN NOT-TAKING DICLOFENAC POTASSIUM 50 MG TABLET 1 TABLET ORALLY TWICE A DAY, NOTES: NONE RECENT-DIDN'T HELP MEDICATION LIST REVIEWED AND RECONCILED WITH THE PATIENT PAST MEDICAL HISTORY SCOLIOSIS - MINIMAL DEXTRO-CONVEX CURVATURE - SCOLIOSIS SERIES ON 01/2009 ENDOMETRIOSIS ON LUPRON FOR INTERMITT 2 YEARS/ S/P 2 LASER LAPROSCOPIES OSTEOPOROSIS/OSTEOPENIA DUE TO LUPRON RX/ DEXA SCAN ON 03/2009 LUMBAR SPINE NORMAL BMD FOR AGE OCD/ SOCIAL ANXIETY/ BULEMIA NERVOSA PURGING TYPE/ DEPRESSIVE DISORDER/ ANXIETY PSORIASIS/SEBORRHEIC DERMATITIS RIGHT HALLUX VALGUS DEFORMITY S/P RT BUNIONECTOMY 2010 GANGLION LEFT HAND- W/ NL RADIOGRAPH S/P SURGICALLY REMOVED BULIMIA NERVOSA PURGING TYPE POLYCYSTIC OVARIES MIGRAINE ALLERGIC RHINITIS SINUS INFECTION MDD CHRONIC PTSD ALLERGIES ENVIRONMENTAL: STUFFY NOSE, ITCHY EYES, SOMETIMES HIVES TYLENOL: CONTRAINDICATION DUE TO GENE MUTATION - CONTRAINDICATION DERMABOND: RASH - ONSET DATE 03/30/2020 SURGICAL HISTORY LASER LAPAROSCOPY FOR ENDOMETRIOSIS WITH FINDING OF MINIMAL ENDOMETRIOSIS WISDOM TOOTH RT BUNIONECTOMY 07/2009 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 MENTAL DISORDER AND COMMITTED SUICIDE, DM PATERNAL GRAND MOTHER: , DM MATERNAL GRAND FATHER: , ? CANCER MATERNAL GRAND MOTHER: , HEART ATTACK, DM SOCIAL HISTORY GENERAL: TOBACCO USE ARE YOU A:CURRENT SMOKER ARE YOU INTERESTED IN QUITTING?THINKING ABOUT QUITTING HAS CUT DOWN ON # OF CIGS/DAY COUNSELED THE PATIENT ON SMOKING CESSATION, EDUCATION [id number]/10/2020 HOW MANY CIGARETTES A DAY DO YOU SMOKE?5 OR LESS HOW SOON AFTER YOU WAKE UP DO YOU SMOKE YOUR FIRST CIGARETTE?AFTER 60 MIN HOW OFTEN DO YOU SMOKE CIGARETTES?SOME DAYS, BUT NOT EVERY DAY PATIENT COUNSELED ON THE DANGERS OF TOBACCO USE AND URGED TO QUIT:03/30/2020 ADDITIONAL FINDINGS: TOBACCO USER STATES CAN GO A LONG TIME WITHOUT SMOKING WITH NO SIDE EFFECTS SMOKING CESSATION INFORMATION GIVEN03/30/2020 LATEX QUESTIONNAIRE LATEX ALLERGY : HAVE YOU EVER DEVELOPED ANY TYPE OF REACTION AFTER HANDLING LATEX PRODUCTS SUCH RUBBER GLOVES, CONDOMS, DIAPHRAGMS, BALLOONS, SOCKS, OR UNDERWEAR?NO LATEX ALLERGY : HAVE YOU EVER DEVELOPED ANY TYPE OF REACTION DURING OR AFTER DENTAL APPOINTMENT, VAGINAL/RECTAL EXAMINATION, SURGICAL PROCEDURE, OR ANY OTHER EXPOSURE?NO DATE ASKED : 11/10/2019 LATEX RISK : HAVE YOU EVER HAD ANY DIFFICULTY BREATHING OR HIVES AFTER EATING OR HANDLING ANY FRUITS, OR VEGETABLES; SUCH KIWI, BANANAS, STONE FRUITS, OR CHESTNUTSNO LATEX RISK : DO YOU HAVE A PREVIOUS PERSONAL HISTORY OF MORE THAN NINE SURGERIES, SPINA BIFIDA, OR REPEATED CATHERIZATIONS? NO LATEX RISK : ARE YOU FREQUENTLY EXPOSED TO LATEX PRODUCTS IN YOUR OCCUPATION?NO ALCOHOL SCREENING DID YOU HAVE A DRINK CONTAINING ALCOHOL IN THE PAST YEAR?YES HOW MANY DRINKS DID YOU HAVE ON A TYPICAL DAY WHEN YOU WERE DRINKING IN THE PAST YEAR?1 OR 2 (0 POINTS) HOW OFTEN DID YOU HAVE A DRINK CONTAINING ALCOHOL IN THE PAST YEAR?MONTHLY OR LESS (1 POINT) POINTS1 INTERPRETATIONNEGATIVE RECREATIONAL DRUG USE DRUG USE?NO CAFFEINE CAFFEINE USE?YES COFFEE SODA SEXUAL HX HAD SEX IN THE LAST 12 MONTHS (VAGINAL, ORAL, OR ANAL)?YES WITHMEN ONLY PREVENTION STRATEGIES DISCUSSED:OTHER USE PROTECTION?NO LMP:09/29/2016 HAVE YOU EVER HAD AN STD?NO HIV / HEP-C SCREENING HIV TEST OFFERED TO PATIENT:YES DATE OFFERED:05/29/2016 TEST ACCEPTED:NO HEP-C TEST OFFERED TO PATIENT:NO N/A REASON:PATIENT DECLINED JAINISM [id number] LUTHERAN LANGUAGE LANGUAGES SPOKEN:KOREAN EDUCATION LEVEL OF EDUCATION:COLLEGE LEARNING BARRIERS / SPECIAL NEEDS CHANGE FROM LAST VISIT?NO BARRIERS TO LEARNING?NO HEARING IMPAIRED?NO VISION IMPAIRED?YES COGNITIVELY IMPAIRED?NO :CORRECTIVE LENSES READINESS TO LEARN?YES LEARNING PREFERENCES?YES :HANDOUTS, DEMONSTRATION/VERBAL INSTRUCTION LEARNING CAPABILITIES PRESENT?YES EMOTIONAL BARRIERS?NO SPECIAL DEVICES?NO HEALTH EDUCATOR NEEDED?NO DOMESTIC VIOLENCE DO YOU FEEL SAFE IN YOUR ENVIRONMENT?YES DIET: REGULAR. EXERCISE: WALKS. MARITAL STATUS: . PAIN CLINIC PFS, CLERGY, PUBLIC HEALTH REFERRALS PFS REFERRAL NEEDED?NO CLERGY REFERRAL NEEDED?NO PUBLIC HEALTH REFERRAL NEEDED?NO HAS THE PATIENT BEEN EDUCATED REGARDING HIS/HER PLAN OF CARE?YES HAS THE PATIENT BEEN EDUCATED REGARDING PAIN, THE RISK FOR PAIN, THE IMPORTANCE OF EFFECTIVE PAIN MANAGEMENT, AND THE PAIN ASSESSMENT PROCESS?YES ADVANCE DIRECTIVE ADVANCE DIRECTIVE DISCUSSED WITH PATIENT:YES PT DOES NOT HAVE ANY ADVANCED DIRECTIVES AND SHE STATES SHE ALREADY HAS INFORMATION ON HCP. DECLINES ASSISTANCE AT THIS TIME. HOSPITALIZATION/MAJOR DIAGNOSTIC PROCEDURE MONO 2006 IN CHILDHOOD LUNG [employer]AS[employer] FOR EATING DISORDER 11/2019-02/2020 HYPOTENSION 11/2019 REVIEW OF SYSTEMS CONSTITUTIONAL: ANY RECENT FEVER NO . CHILLS NO . WEIGHT CHANGE OF UNKNOWN REASONS NO . GASTROENTEROLOGY: NEW UNEXPLAINABLE CHANGES IN BOWEL CONTROL NO . CONSTIPATION NO . GENITOURINARY: ANY NEW CHANGE IN BLADDER CONTROL? NO . NEUROLOGY: NEW ONSET DIZZINESS OR NEUROLOGICAL CHANGES NOT MENTIONED NO . NEW NUMBNESS OR PAIN PATTERNS NOT MENTIONED AND PERTINENT TO TODAY'S VISIT NO . CARDIOLOGY: NEW CHEST PRESSURE NO . NEW CHEST PAIN NO . RESPIRATORY: UNEXPLAINABLE COUGH NO . NEW SHORTNESS OF BREATH NO . VITAL SIGNS WT 153.4 LBS, HT 66 IN, BMI 24.76 INDEX, BP 146/73 MM HG, HR 84 /MIN, RR 16 /MIN, TEMP 97.2 F, OXYGEN SAT % 96%, SAFE IN ENV? (Y/N) YES, NA INITIALS UT 13:42, REVIEWED BY: MTM. JOSE DIRECTOR OF REHABILITATION. EXAMINATION GENERAL EXAMINATION: GENERAL AWAKE,ALERT ,PLEAASANT . PSYCH AFFECT NORMAL . LUNGS: LUNG BAILON ARE CLEAR TO AUSCULTATION BILATERALLY. GOOD MOVEMENT OF AIR . HEART: S1, S2 IN A REGULAR RATE AND RHYTHM. NO SIGNIFICANT MURMURS, RUBS OR GALLOPS NOTED . LUMBAR:TRIGGER POINTS:, ELICITED WITH PALPATION OVER LUMBAR PARAVERTEBRAL MUSCLES.ROJM INCREASES PAIN IN THIS REGION.SPECIFIC POINT TENDERNESS OVER BILAT. L4/5-L5/S1 LUMBAR FACETS WITH FACET LOADING. CERVICAL: TRIGGER POINTS: CERVICAL AND TRAPEZIUS BILAT. R>L.PAIN IS AGGREVATED WITH ROJM NECK. NEUROLOGIC EXAM:NEGATIVE ROMBERG PUPILS EQUAL ROUND REACTIVE TO LIGHT AND ACCOMMODATION, NORMAL TRACKING NO NYSTAGMUS . ASSESSMENTS MIGRAINE WITHOUT STATUS MIGRAINOSUS, NOT INTRACTABLE, UNSPECIFIED MIGRAINE TYPE - G43.909 (PRIMARY) MYALGIA, OTHER SITE - M79.18 TREATMENT MIGRAINE WITHOUT STATUS MIGRAINOSUS, NOT INTRACTABLE, UNSPECIFIED MIGRAINE TYPE CONTINUE NORCO TABLET, 5-325 MG, 1 TABLET NEEDED, ORALLY, Q8H TID MDD3, NOTES: 11/16/19 1900 NOTES: SCHEDULE BOTOX. SCHEDULE TRIGGER POINT INJECTION BILATERAL LUMBAR PARASPINAL , ISTOP REGISTRY REVIEWED AND DEMONSTRATES COMPLLIANCE. BRINGS IN MEDICATIONS WHICH IS APPROPRIATE FOR WHAT WAS DISPENSED. RECENT URINE TOXICOLOGY REVIEWED. NO UNAUTHORIZED MEDICATIONS. NO ILLICIT SUBSTANCES AND PRESCRIBED MEDICATIONS WERE PRESENT. URINE TOX TODAY , RISKS OF NARCOTIC/OPIOD MEDICATIONS INCLUDES BUT IS NOT LIMITED TO RISK OF DEPENDANCE/DEVELOPMENT OF ADDICTION, MOOD DISTURBANCE AND DEPRESSION, OSTEOPOROSIS, HORMONAL AND LABIDAL CHANGES, RESPIRATORY DEPRESSION AND . PATIENT IS ADVISED NOT TO DRIVE OR DRINK ALCOHOL WHILE ON THESE MEDICATIONS , [facility] NARCOTIC AGREEMENT WAS REVIEWED AND SIGNED TODAY BY THE PATIENT. SEE ATTACHED DOCUMENT FOR FULL DETAILS; SPECIFIC ISSUES WERE REVIEWED: 1) KEEP PAIN MEDS IN THEIR ORIGINAL BOTTLES AND ANY WEEKLY PLANNERS ARE TO BE BROUGHT TO THE PAIN CENTER AT EVERY VISIT. 2) THE PATIENT IS NOT TO INCREASE DOSING OR TIMING OF THEIR PAIN MEDICATION WITHOUT SPECIFIC DIRECTION OF THEIR PAIN CENTERPROVIDER (NOT ER OR OTHER PROVIDERS). 3) ALL PAIN MEDS ARE TO BE KEPT SECURED, IN A LOCKED BOX. 4) NO PAIN MEDS ARE TO BE SHARED WITH ANY OTHER PERSON FOR ANY REASON. 5) NO PAIN MEDS MAY BE TAKEN FROM ANY FRIENDS OR RELATIVES FOR ANY REASON 6) NO MEDS OR SUBSTANCES WHICH ARE NOT LEGAL ARE TO BE USED- NO MARIJUANA, NO COCAINE, AMPHETAMINES, HEROIN, OR OTHERS ARE EVER TO BE USED. 7)URINE TESTING IS DONE TO ACCOUNT FOR MEDS AND SUBSTANCES BEING TAKEN AND WILL BE DONE RANDOMLY. 03/30/20 1440 PATIENT PROVIDED UTOX FOR TESTING, PATIENT SIGNED AND UPDATED NARCOTIC AGREEMENT ON FILE. PATIENT GIVEN HANDOUT ON BOTOX AND TRIGGER POINT INJECTIONS, REVIEWED PRE PROCEDURE INSTRUCTIONS FOR BOTOX AND TPI, PATIENT VERBALIZES UNDERSTANDING. OTHERS NOTES: BOTULINUM TOXIN INJECTIONS: MEDICAL MATERIAL WAS PRINTED. PROCEDURE CODES [id number] ESTABILISHED PATIENT [facility] CHARGE DISPOSITION & COMMUNICATION FOLLOW UP POST PROCEDURES (REASON: SCHEDULE BOTOX. SCHEDULE TRIGGER POINT INJECTION BILATERAL LUMBAR PARASPINAL) ELECTRONICALLY SIGNED BY SANA HERNANDEZ ON 03/31/2020 AT 01:01 PM EST DISCLAIMER : THIS IS A VISIT SUMMARY EXTRACTED FROM THE [employer] CHART. IT IS NOT A COPY OF THE [employer] PROGRESS NOTE. LAUREN
== END ==
LOC: M PAIN 13:30
PROVIDERS: ATTEND Nurse Practitioner Family
DX: G43.909 Migraine, unspecified, not intractable, without status migrainosus (principal); M79.18 Myalgia, other site; F17.210 Nicotine dependence, cigarettes, uncomplicated; Z86.59 Personal history of other mental and behavioral disorders; Z88.6 Allergy status to analgesic agent; Z91.09 Other allergy status, other than to drugs and biological substances; Z79.899 Other long term (current) drug therapy

== ENCOUNTER → 2020-04-08 | Outpatient (CLI) | payer OTHER | LOC: M LABSMTC 13:48 | PROVIDERS: ATTEND Anesthesiology | DX: Z20.828 Contact with and (suspected) exposure to other viral communicable diseases (principal) ==

== ENCOUNTER → 2020-04-21 | Outpatient (CLI) | payer OTHER | LOC: M LABSMTC 13:45 | PROVIDERS: ATTEND Anesthesiology | DX: Z20.828 Contact with and (suspected) exposure to other viral communicable diseases (principal) ==

== ENCOUNTER → 2020-04-26 | Outpatient (CLI) | payer OTHER ==
[~2020-04-26] MED LIST changes: +BOTOX THERAPEUTIC 100 UNIT VIAL (J0585 PER 1 UNIT) IM ONE; -BUPIVACAINE HCL 0.25% 10ML VIAL As Ordered ONE; -BUPIVACAINE HCL 0.25% 30ML VIAL As Ordered ONE; -NORCO, ANEXSIA 5/325MG TABLET (HYDROcodone/ACETAMINOPHEN) As Ordered ONE; -TRIAMCINOLONE ACETONIDE SUSP 40 MG/ML VIAL (J3301) As Ordered ONE; -diazePAM 5 MG TAB As Ordered ONE; +diazePAM 5MG TABLET As Ordered ONE; +oxyCODONE 5MG TAB As Ordered ONE
--- NOTE | 2020-04-29 02:41 | ECWPNPC ---
PATIENT NAME: CHARANJIT POST : 1985 GENDER: FEMALE VISIT DATE: 04/26/2020 DISCHARGE DATE: 04/26/20 1639 VISIT LOCKED DATE TIME: PHYSICIAN: RELL WOO MD RESOURCE: RELL WOO MD REASON FOR APPOINTMENT 1. BOTOX INJECTIONS TO THE HEAD, NECK AND SHOULDER AREAS HISTORY OF PRESENT ILLNESS GENERAL: -. FALL RISK SCREENING: SCREENING :NO FALLS REPORTED IN THE LAST YEAR PAIN SCREENING: PATIENT HAS A COMPLAINT OF ACUTE OR CHRONIC PAIN :YES LOCATION OF PAIN:HEAD INTENSITY OF PAIN (SCALE OF 1 TO 10):2 WHAT DOES YOUR PAIN FEEL LIKE:INTERMITTENT, THROBBING NURSING NOTE: -. PAIN CENTER INTAKE QUESTIONS: DO YOU HAVE A HISTORY OF MRSA? :NO DO YOU TAKE A BLOOD THINNERS? :NO DO YOU HAVE ANY BLEEDING DISORDERS? :NO ANY NEW NUMBNESS OR WEAKNESS IN YOUR LEGS OR ARMS? :NO ANY PACEMAKER,DEFIBRILLATOR, OR DORSAL COLUMN STIMULATOR? :NO DO YOU HAVE ANY RASHES OR OPEN SORES? :NO ARE YOU ALLERGIC TO IV DYE? :NO ARE YOU DIABETIC? :NO ANY NEW PROBLEMS WITH YOUR MEDICATIONS? :NO HAVE YOU RECEIVED A VACCINE IN THE PAST 30 DAYS? :NO DO YOU PLAN TO RECEIVE A VACCINE IN THE NEXT 21 DAYS? :NO DO YOU TAKE ANY IMMUNOSUPPRESSIVE MEDICATIONS? :NO ANY HISTORY OF SEIZURES? :NO ANY HISTORY OF CARDIAC ISSUES OR EVENTS? :NO DO YOU HAVE SLEEP APNEA? :NO ANY RECENT HEAD INJURY? :NO DO YOU HAVE ANY NEW INFECTIONS? :NO IS THERE A CHANCE YOU COULD BE ? :NO ARE YOU BREAST FEEDING? :NO WHEN DID YOU LAST EAT? : 04/25 2100 WHEN DID YOU LAST DRINK? : 04/26 1200 WHAT DID YOU LAST DRINK? : WATER NAME OF PERSON DRIVING YOU HOME? : - DO YOU HAVE ANY OTHER QUESTIONS OR CONCERNS? : NONE CURRENT MEDICATIONS TAKING CALCIUM + D 600-200 MG-UNIT TABLET 1 TABLET ORALLY ONCE A DAY, NOTES: 04/26 0900 TAKING CLONIDINE HCL 0.3 MG TABLET 2 TABLETS ORALLY ONCE A DAY, NOTES: 04/25 2200 TAKING BENADRYL 25 MG ORAL 3 TABLETS DIRECTED, NOTES: 1-2 WEEKS AGO TAKING XANAX 1 MG TABLET 1 TABLET ORALLY BID, NOTES: 04/25 1500 TAKING ALPRAZOLAM ER 2 MG TABLET EXTENDED RELEASE 24 HOUR 1 TABLET IN THE MORNING ORALLY ONCE A DAY, NOTES: 04/25 930 TAKING GABAPENTIN 300 MG CAPSULE 1 CAPSULE ORALLY BID, NOTES: 04/26 900 TAKING EX-LAX 15 MG TABLET 1 TABLET AT BEDTIME NEEDED ORALLY DAILY, NOTES: 1-2 WEEKS AGO TAKING VENLAFAXINE HCL ER 75 MG CAPSULE EXTENDED RELEASE 24 HOUR ORALLY ONCE A DAY, NOTES: 04/26 900 TAKING LINZESS 290 MCG CAPSULE 1 CAPSULE ORALLY ONCE A DAY, NOTES: 04/26 900 TAKING ALBUTEROL SULFATE HFA 108 (90 BASE) MCG/ACT AEROSOL SOLUTION 1 PUFF NEEDED INHALATION EVERY 4 HRS, NOTES: 2 WEEKS AGO TAKING BUSPIRONE HCL 15 MG TABLET 1 TABLET ORALLY TWICE A DAY, NOTES: 04/26 900 TAKING TRAZODONE HCL 50 MG TABLET 1 TABLET AT BEDTIME NEEDED ORALLY ONCE A DAY, NOTES: 2 WEEKS AGO TAKING NORCO 5-325 MG TABLET 1 TABLET NEEDED ORALLY Q8H TID MDD3, NOTES: 04/25 2130 TAKING METFORMIN HCL ER 500 MG TABLET EXTENDED RELEASE 24 HOUR 3 TABLET ORALLY DAILY AT BEDTIME, NOTES: 04/25 2130 NOT-TAKING ALBUTEROL EVERY 4 HOURS NEEDED NOT-TAKING COLACE 100 MG CAPSULE 1 CAPSULE NEEDED ORALLY BID NOT-TAKING VITAMIN C 500 MG TABLET 1 TABLET ORALLY ONCE A DAY NOT-TAKING PROBIOTIC TABLET DELAYED RELEASE 1 CAPSULE ORALLY DAILY NOT-TAKING SELEGILINE HCL 5 MG TABLET 1 TABLET WITH BREAKFAST AND LUNCH ORALLY TWICE A DAY NOT-TAKING SINGULAIR 10 MG TABLET 1 TABLET IN THE EVENING ORALLY ONCE A DAY NOT-TAKING TRAMADOL HCL 50 MG TABLET 1/2 - 1 TABLET ORALLY EVERY 6 -8 HRS PRN PAIN NOT-TAKING DICLOFENAC POTASSIUM 50 MG TABLET 1 TABLET ORALLY TWICE A DAY, NOTES: NONE RECENT-DIDN'T HELP MEDICATION LIST REVIEWED AND RECONCILED WITH THE PATIENT PAST MEDICAL HISTORY SCOLIOSIS - MINIMAL DEXTRO-CONVEX CURVATURE - SCOLIOSIS SERIES ON 01/2009 ENDOMETRIOSIS ON LUPRON FOR INTERMITT 2 YEARS/ S/P 2 LASER LAPROSCOPIES OSTEOPOROSIS/OSTEOPENIA DUE TO LUPRON RX/ DEXA SCAN ON 03/2009 LUMBAR SPINE NORMAL BMD FOR AGE OCD/ SOCIAL ANXIETY/ BULEMIA NERVOSA PURGING TYPE/ DEPRESSIVE DISORDER/ ANXIETY PSORIASIS/SEBORRHEIC DERMATITIS RIGHT HALLUX VALGUS DEFORMITY S/P RT BUNIONECTOMY 2010 GANGLION LEFT HAND- W/ NL RADIOGRAPH S/P SURGICALLY REMOVED BULIMIA NERVOSA PURGING TYPE POLYCYSTIC OVARIES MIGRAINE ALLERGIC RHINITIS SINUS INFECTION MDD CHRONIC PTSD ALLERGIES ENVIRONMENTAL: STUFFY NOSE, ITCHY EYES, SOMETIMES HIVES TYLENOL: CONTRAINDICATION DUE TO GENE MUTATION - CONTRAINDICATION DERMABOND: RASH - ONSET DATE 03/30/2020 SURGICAL HISTORY LASER LAPAROSCOPY FOR ENDOMETRIOSIS WITH FINDING OF MINIMAL ENDOMETRIOSIS WISDOM TOOTH RT BUNIONECTOMY 07/2009 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 MENTAL DISORDER AND COMMITTED SUICIDE, DM PATERNAL GRAND MOTHER: , DM MATERNAL GRAND FATHER: , ? CANCER MATERNAL GRAND MOTHER: , HEART ATTACK, DM SOCIAL HISTORY GENERAL: TOBACCO USE ARE YOU A:CURRENT SMOKER ARE YOU INTERESTED IN QUITTING?THINKING ABOUT QUITTING HAS CUT DOWN ON # OF CIGS/DAY COUNSELED THE PATIENT ON SMOKING CESSATION, EDUCATION DPIJFTUC32/10/2020 HOW MANY CIGARETTES A DAY DO YOU SMOKE?5 OR LESS HOW SOON AFTER YOU WAKE UP DO YOU SMOKE YOUR FIRST CIGARETTE?AFTER 60 MIN HOW OFTEN DO YOU SMOKE CIGARETTES?SOME DAYS, BUT NOT EVERY DAY PATIENT COUNSELED ON THE DANGERS OF TOBACCO USE AND URGED TO QUIT:04/26/2020 ADDITIONAL FINDINGS: TOBACCO USER STATES CAN GO A LONG TIME WITHOUT SMOKING WITH NO SIDE EFFECTS SMOKING CESSATION INFORMATION GIVEN03/30/2020 LATEX QUESTIONNAIRE LATEX ALLERGY : HAVE YOU EVER DEVELOPED ANY TYPE OF REACTION AFTER HANDLING LATEX PRODUCTS SUCH RUBBER GLOVES, CONDOMS, DIAPHRAGMS, BALLOONS, SOCKS, OR UNDERWEAR?NO LATEX ALLERGY : HAVE YOU EVER DEVELOPED ANY TYPE OF REACTION DURING OR AFTER DENTAL APPOINTMENT, VAGINAL/RECTAL EXAMINATION, SURGICAL PROCEDURE, OR ANY OTHER EXPOSURE?NO LATEX RISK : HAVE YOU EVER HAD ANY DIFFICULTY BREATHING OR HIVES AFTER EATING OR HANDLING ANY FRUITS, OR VEGETABLES; SUCH KIWI, BANANAS, STONE FRUITS, OR CHESTNUTSNO LATEX RISK : DO YOU HAVE A PREVIOUS PERSONAL HISTORY OF MORE THAN NINE SURGERIES, SPINA BIFIDA, OR REPEATED CATHERIZATIONS? NO LATEX RISK : ARE YOU FREQUENTLY EXPOSED TO LATEX PRODUCTS IN YOUR OCCUPATION?NO DATE ASKED : 04/26/2020 ALCOHOL SCREENING DID YOU HAVE A DRINK CONTAINING ALCOHOL IN THE PAST YEAR?YES HOW MANY DRINKS DID YOU HAVE ON A TYPICAL DAY WHEN YOU WERE DRINKING IN THE PAST YEAR?1 OR 2 (0 POINTS) HOW OFTEN DID YOU HAVE A DRINK CONTAINING ALCOHOL IN THE PAST YEAR?MONTHLY OR LESS (1 POINT) POINTS1 INTERPRETATIONNEGATIVE RECREATIONAL DRUG USE DRUG USE?NO CAFFEINE CAFFEINE USE?YES COFFEE SODA SEXUAL HX HAD SEX IN THE LAST 12 MONTHS (VAGINAL, ORAL, OR ANAL)?YES WITHMEN ONLY PREVENTION STRATEGIES DISCUSSED:OTHER USE PROTECTION?NO LMP:09/29/2016 HAVE YOU EVER HAD AN STD?NO HIV / HEP-C SCREENING HIV TEST OFFERED TO PATIENT:YES DATE OFFERED:05/29/2016 TEST ACCEPTED:NO HEP-C TEST OFFERED TO PATIENT:NO N/A REASON:PATIENT DECLINED ORIENTAL ORTHODOX [id number] HINDUISM LANGUAGE LANGUAGES SPOKEN:KOSOVAN EDUCATION LEVEL OF EDUCATION:COLLEGE LEARNING BARRIERS / SPECIAL NEEDS CHANGE FROM LAST VISIT?NO BARRIERS TO LEARNING?NO HEARING IMPAIRED?NO VISION IMPAIRED?YES COGNITIVELY IMPAIRED?NO :CORRECTIVE LENSES READINESS TO LEARN?YES LEARNING PREFERENCES?YES :HANDOUTS, DEMONSTRATION/VERBAL INSTRUCTION LEARNING CAPABILITIES PRESENT?YES EMOTIONAL BARRIERS?NO SPECIAL DEVICES?NO SURGICAL ASSISTANT CERTIFIED NEEDED?NO DOMESTIC VIOLENCE DO YOU FEEL SAFE IN YOUR ENVIRONMENT?YES DIET: REGULAR. EXERCISE: WALKS. MARITAL STATUS: . PAIN CLINIC PFS, CLERGY, PUBLIC HEALTH REFERRALS PFS REFERRAL NEEDED?NO CLERGY REFERRAL NEEDED?NO PUBLIC HEALTH REFERRAL NEEDED?NO HAS THE PATIENT BEEN EDUCATED REGARDING HIS/HER PLAN OF CARE?YES HAS THE PATIENT BEEN EDUCATED REGARDING PAIN, THE RISK FOR PAIN, THE IMPORTANCE OF EFFECTIVE PAIN MANAGEMENT, AND THE PAIN ASSESSMENT PROCESS?YES ADVANCE DIRECTIVE ADVANCE DIRECTIVE DISCUSSED WITH PATIENT:YES 04/26/2020 PT DOES NOT HAVE ANY ADVANCED DIRECTIVES AND SHE STATES SHE ALREADY HAS INFORMATION ON HCP. DECLINES ASSISTANCE AT THIS TIME. HOSPITALIZATION/MAJOR DIAGNOSTIC PROCEDURE MONO 2006 IN CHILDHOOD LUNG [place]AS[place] FOR EATING DISORDER 11/2019-02/2020 HYPOTENSION 11/2019 VITAL SIGNS WT 164.6 LBS, HT 66 IN, BMI 26.56 INDEX, BP 118/74 MM HG, HR 85 /MIN, RR 16 /MIN, TEMP 98.6 F, OXYGEN SAT % 98%, SAFE IN ENV? (Y/N) Y, NA INITIALS AW 1423, REVIEWED BY: Gabrielle RAMÍREZ RN 1442. EXAMINATION GENERAL EXAMINATION: THE PATIENT IS ALERT, ORIENTED TIMES THREE AND COOPERATIVE. HEART SHOWS REGULAR RHYTHM, NO MURMURS AND NO GALLOPS. LUNGS ARE CLEAR TO AUSCULTATION. ASSESSMENTS CHRONIC MIGRAINE - G43.709 (PRIMARY), RISK: (NULL) TREATMENT CHRONIC MIGRAINE MEDICATION: VALIUM TAB 10MG ORALLY (DIAZEPAM)ROBIN RAMÍREZITA 04/26/2020 3:24:03 PM > LOT # [id number] EXP 11/2020 OSCAR CARABALLO 04/26/2020 3:27:10 PM > VERIFIED DESIREECORONA 04/26/2020 3:29:38 PM > ADMINISTERED THIS PROCEDURE WAS REVIEWED BY CORONA RAMÍREZ ON 04/28/2020 AT 14:11 PM EST MEDICATION: OXYCODONE HCL TAB 10MG ORALLYDEROSACORONA 04/26/2020 3:24:55 PM > LOT # [id number] EXP 06/2021 OSCAR CARABALLO 04/26/2020 3:26:55 PM > VERIFIED DESIREE,CORONA 04/26/2020 3:30:25 PM > ADMINISTERED THIS PROCEDURE WAS REVIEWED BY CORONA RAMÍREZ ON 04/28/2020 AT 14:11 PM EST PROCEDURES PAIN NURSING RECORD PRE-PROCEDURE IV SITE N/A, PRE-PROCEDURE ORAL MEDICATIONS SEE MEDICATION ORDERS PROCEDURE IN ROOM 1423, PHYSICIAN IN ROOM 1602, START 1605, FINISH 1615, PHYSICIAN OUT OF ROOM 1615, OUT OF ROOM 1627, STEROID N/A, O2 N/A, ECG N/A, PATIENT SHIELDED NO, SAFETY STRAP NO, PREP ALCOHOL BY DR. WOO, IV INFUSED N/A, DRESSING N/A LOC: DESIREECORONA 04/26/2020 3:53:21 PM > 1. ALERT, ORIENTED RESP: DESIREE,CORONA 04/26/2020 3:53:24 PM > 1. REGULAR, NO DYSPNEA COLOR: DESIREE,CORONA 04/26/2020 3:53:28 PM > 1. PINK SKIN: DESIREECORONA 04/26/2020 3:53:32 PM > 1. WARM, DRY POSITION: DESIREECORONA 04/26/2020 3:53:36 PM > 2. SUPINE VITALS: DESIREECORONA 04/26/2020 4:21:43 PM > 134/85,72,18,99% DISCHARGE: POST PAIN 4, DRESSING SITE NO DRESSING, IV N/A, GAIT STEADY, TEACHING COMPLETED, PATIENT ACKNOWLEDGES UNDERSTANDING YES, PATIENT DISCHARGED AT 1627 PN BOTOX INJECTIONS FIRST INJECTION PRE PROCEDURE DIAGNOSIS CHRONIC MIGRAINE HEADACHES POST PROCEDURE DIAGNOSIS CHRONIC MIGRAINE HEADACHES PROCEDURE BOTOX INJECTION AT THE HEAD, NECK AND SHOULDERS SURGEON DR. RELL WOO PIPE COREMAKER NONE ANESTHESIA NONE PRE PROCEDURE NOTE THE PATIENT HAS HISTORY OF CHRONIC MIGRAINE HEADACHES. I EVALUATED THE PATIENT AND REVIEWED THE CHART. I WENT OVER THE RISKS, ALTERNATIVES, AND BENEFITS ASSOCIATED WITH THIS PROCEDURE. THE PATIENT WOULD LIKE TO PROCEED AND GAVE CONSENT TO PERFORM THE PROCEDURE. THE PATIENT DENIES UNEXPLAINABLE WEIGHT LOSS, FEVER, CHILLS, OR NEW CHANGES IN URINARY OR BOWEL CONTROL. SHE HAS NOT RECEIVED BOTOX INJECTIONS DUE TO SOME PHYSICAL CONDITION THAT SHE WAS HAVING. SHE IS HAVING APPROXIMATELY 25 A MONTH,. IN THE PAST, BOTOX HAVE WORKED VERY WELL FOR HER. SHE WAS HAVING LESS THAN 8 PER MONTH. SHE EXPRESSES THAT SHE WOULD LIKE TO MOVE FORWARD WITH BOTOX INJECTIONS FOR MIGRAINES. THESE HEADACHES LAST MORE THAN 4 HOURS PER DAY. THE PATIENT HAS USED THE MEDICATIONS LISTED IN THE CHART TO TREAT THE HEADACHES FOR MANY MONTHS BUT THE HEADACHES PERSIST DESCRIBED ABOVE. THE PATIENT IS COVID-19 NEGATIVE DESCRIPTION OF PROCEDURE THE PATIENT WAS BROUGHT TO THE PROCEDURE ROOM AND PLACED IN THE SUPINE POSITION. I CHECKED LATERALITY AND THE AREAS WHERE THE PROCEDURE WAS GOING TO BE PERFORMED WITH THE PATIENT AND THE SUPPORTING STAFF AT THE MOMENT OF THE TIME OUT IN THE PROCEDURE ROOM. FOR THE PROCEDURE I USED A SOLUTION OF 5 UNITS OF BOTOX PER EACH 0.1 ML OF THE SOLUTION. I USED A 30-GAUGE NEEDLE TO INJECT THE SOLUTION AT THE SELECTED LOCATIONS. I INJECTED FIRST THE RIGHT AND LEFT PAINT ROLLER COVERS SUPERVISOR MUSCLES. THE LANDMARK FOR BOTH INJECTIONS WAS APPROXIMATELY 1 CM ABOVE THE SUPERIOR MEDIAL EDGE OF THE EYEBROW. AFTER THESE TWO INJECTIONS, I INJECTED THE PROCERUS MUSCLE AT THE MIDLINE POINT BETWEEN THESE FIRST TWO INJECTIONS. THEN I PROCEEDED TO INJECT THE RIGHT AND LEFT FRONTALIS MUSCLE. TWO INJECTIONS WERE DONE IN EACH SIDE. THE FIRST INJECTION WAS DONE APPROXIMATELY 2 CM ABOVE THE FIRST INJECTION OF THE PAINT ROLLER COVERS SUPERVISOR. THE SECOND INJECTION WAS DONE APPROXIMATELY 1.5 CM LATERAL TO THIS FIST INJECTION OF THE FRONTALIS OF EACH SIDE. AFTER THE INJECTIONS OVER THE FOREHEAD WERE DONE, THE PATIENT'S HEAD WAS TURNED TO THE LEFT SIDE AND WE STARTED TO WORK WITH THE RIGHT TEMPORALIS MUSCLE. FIRST INJECTION WAS DONE IN A VERTICAL LINE OF THE TRAGUS APPROXIMATELY 3 CM ABOVE THE TRAGUS. THE SECOND INJECTION WAS DONE APPROXIMATELY 2 CM ABOVE THE FIRST INJECTION. THE THIRD INJECTION WAS DONE APPROXIMATELY 1 CM FRONTWARD FROM THIS VERTICAL LINE CREATED AT THE LEVEL OF THE TRAGUS, RESIDENTIAL BETWEEN THESE TWO INJECTIONS. THE FOURTH INJECTION WAS DONE APPROXIMATELY 1.5 CM BACK FROM THE SECOND INJECTION TO THE TEMPORALIS IN LINE TO THE MIDPORTION OF THE EAR. THEN, WE PROCEEDED TO INJECT THE LEFT TEMPORALIS MUSCLE. WE CLEANED THE AREA WITH ALCOHOL AND PROCEEDED TO PERFORM THE SAME FOR INJECTIONS DESCRIBED ABOVE BUT IN THE LEFT TEMPORALIS MUSCLE USING THE SAME LANDMARKS. AFTER THESE INJECTIONS WERE DONE, THE PATIENT WAS SEATED. FIRST, WE STARTED TO INJECT THE LEFT AND RIGHT OCCIPITALIS MUSCLE. I INJECTED AT THE FOLLOWING PLACES IN THE RIGHT AND LEFT MUSCLE. THE FIRST INJECTION WAS DONE AT THE MIDPOINT POSITION BETWEEN THE MASTOID PROCESS AND THE INION OF THE OCCIPITAL PROTUBERANCE. THE SECOND INJECTION WAS DONE APPROXIMATELY 1.5 CM SUPERIOR AND LATERAL OF THIS POINT. THE THIRD INJECTION WAS DONE APPROXIMATELY 1.5 CM SUPERIOR AND MEDIAL TO THIS FIRST INJECTION. NEXT, I PROCEEDED TO INJECT THE RIGHT AND LEFT PARASPINAL MUSCLES. LANDMARK OF THE INJECTION WERE APPROXIMATELY: FIRST INJECTION 3 CM BELOW THE INION AND 1 CM LATERAL TO THE MIDLINE AND SECOND INJECTION AT EACH SIDE WAS DONE APPROXIMATELY 1.5 CM SUPERIOR AND LATERAL OF THE FIRST INJECTION. THE LAST GROUP OF INJECTIONS WAS DONE OVER THE RIGHT AND LEFT TRAPEZIUS MUSCLE OVER THE SHOULDERS AREA. THE FIRST INJECTION WAS DONE AT THE MIDPOINT BETWEEN THE INFLECTION POINT BETWEEN THE NECK AND SHOULDER AND THE ACROMION. THE SECOND AND THIRD INJECTIONS WERE DONE APPROXIMATELY 2.5 CM LATERAL AND MEDIAL FROM THIS FIRST INJECTION. SAME TARGETS WERE USED IN THE RIGHT AND LEFT SIDE. IN TOTAL, I INJECTED 155 UNITS OF BOTOX. THE MEDICATIONS WERE VERIFIED WITH THE NURSE. PROCEDURE WAS DONE WITHOUT EVIDENCE OF PARESTHESIA OR ANY COMPLICATIONS. THE PATIENT TOLERATED THE PROCEDURE VERY WELL. ESTIMATED BLOOD LOSS WAS LESS THAN 5 ML. THE PATIENT WAS SENT TO THE RECOVERY ROOM FOR OBSERVATIONS. INJECTIONS WERE DONE AFTER CLEANING WITH ALCOHOL, USING ASEPTIC TECHNIQUES POST PROCEDURE NOTE THE PROCEDURE DONE WAS DISCUSSED WITH THE PATIENT. THE PATIENT WILL BE SEEN IN A FOLLOW UP IN THE NEXT FEW WEEKS. I AM LOOKING FOR LONG LASTING PAIN RELIEF FOR THE PATIENT WITH THIS INTERVENTION. INSTRUCTIONS WERE GIVEN, QUESTIONS WERE ANSWERED, AND THE PATIENT EXPRESSED UNDERSTANDING AND AGREES WITH THE PLAN. I, NATALIE CUETO, DOCUMENTED THE ABOVE INFORMATION ACTING A SCRIBE FOR DR. WOO. I HAVE REVIEWED THE ABOVE DOCUMENT, WRITTEN BY NATALIE CUETO, RELATIONS MGR, AND I VERIFY THAT IT IS ACCURATE PROCEDURE CODES 71054 CHEMODENERV MUSC MIGRAINE DISPOSITION & COMMUNICATION FOLLOW UP FOLLOW UP WITH KITCHEN PORTER (REASON: POST BOTOX INJECTIONS TO HEAD, NECK AND SHOULDERS AREA) ELECTRONICALLY SIGNED BY RELL WOO MD, MD ON 04/28/2020 AT 11:08 AM EST DISCLAIMER : THIS IS A VISIT SUMMARY EXTRACTED FROM THE [employer] [employer] CHART. IT IS NOT A COPY OF THE [employer] PROGRESS NOTE. CELINED
== END ==
LOC: M PAIN 14:00
PROVIDERS: ATTEND Anesthesiology
DX: G43.709 Chronic migraine without aura, not intractable, without status migrainosus (principal); Z79.891 Long term (current) use of opiate analgesic; Z79.899 Other long term (current) drug therapy; F17.210 Nicotine dependence, cigarettes, uncomplicated; Z88.6 Allergy status to analgesic agent; J30.9 Allergic rhinitis, unspecified; Z91.048 Other nonmedicinal substance allergy status
CPT/HCPCS: 64615; J0585

== ENCOUNTER → 2020-05-20 | Outpatient (CLI) | payer OTHER | LOC: M LABSMTC 11:01 | PROVIDERS: ATTEND Anesthesiology | DX: Z20.828 Contact with and (suspected) exposure to other viral communicable diseases (principal) ==

== ENCOUNTER → 2020-07-11 | Outpatient (CLI) | payer OTHER | LOC: M LABSMTC 11:49 | PROVIDERS: ATTEND Anesthesiology | DX: Z01.812 Encounter for preprocedural laboratory examination (principal); Z20.822 Contact with and (suspected) exposure to COVID-19 ==

== ENCOUNTER 2020-07-16 15:45 | Emergency (ER) | payer OTHER ==
[2020-07-16 15:46] VITALS: BP 134/81
--- OUTSIDE RECORDS SUMMARY | 2020-07-16 15:51 | CCD ---
Author Author [facility] Organization [facility] Address Unknown Phone Unavailable Care Team Providers Care Doffer Name Role Phone Nereyda Kat Unavailable PROBLEMS Type Condition ICD9-CM Code [id number] Code Onset Dates Condition S tatus SNOMED Code Notes Problem Female infertility, unspecified N97.9 Active 2083994 Problem Depressive disorder, not elsewhere classified 311 Active 19469533 Problem Polycystic ovarian syndrome E28.2 Active 6987 8008 Problem Generalized anxiety disorder F41.1 Active 218 84417 Problem Allergic rhinitis J30.9 Active 01473645 Problem Migraine without status migr ainosus, not intractable, unspecified migraine type G43.909 Active 39845395 Problem Vitamin D deficiency E55.9 Active 19862232 Problem Constipation, unspecified constipation type K59.00 Active 65027923 Problem Myalgia M79.1 Active 33228049 Problem 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 Active 335774977 Problem Lumbar facet arthropathy M46.96 Active 2533797 08 Problem Fibromyalgia M79.7 Active 155920315 Problem Cervicalgia M54.2 Active 67730042 Problem Other chronic pain G89.29 Active 32514918 Problem Facet arthropathy, cervical M12.88 Active 4275 48134 Problem Spondylosis of lumbar region without myelopathy or radiculopathy M47.816 Active 18424274 Problem Chronic migraine G43.709 Active 72622194 Problem Chronic migraine w/o aura w/o status migrainosus , not intractable G43.709 Active 534366008 Problem Myalgia, other site M79.18 Active 29167025 ALLERGIES Allergen (clinical drug ingredient) Drug/Non Drug Allergy do cumented on EMR Reaction Allergy Type Onset Date Status DERMABOND Rash Non Drug Allergy 03/30/2020 Active Environmental Stuffy nose, itchy eyes, sometimes hives Non Drug Allergy Active acetaminophen Tylenol([facility] Code:[address]-52) 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 Drug Allergy Active ENCOUNTERS from 1983 to 2020-06-12 Encounter Location Date Provider Diagnosis [facility] [address] [place] [id number] May, Nereyda Kat Migraine without status migrainosus, not intractable, unspecified migraine type G43.909 IMMUNIZATIONS Vaccine Route Administration Date Status Influenza (6mo & up) Fluzone Unknown May 29, 2016 Oth ers Influenza (6mo & up) Fluzone IM Intramuscular Apr 28, 2013 Ad ministered Influenza (6mo & up) Fluzone IM Intramuscular Feb 13, 2012 Ad ministered SOCIAL HISTORY Tobacco Use: Social History Observation Description Date Details (start date - stop date) Current Smoker Sex Assigned At : Social History Observation Description Sex Assigned At Unknown Education: Question Answer Notes Level of Education: College Language: Question Answer Notes Languages spoken: Burkinan Lutheran: Question Answer Notes Lutheran 13 [employer] Sexual Hx: Question Answer Notes Had sex in the last 12 months (vaginal, oral, or anal)? Yes LMP: 09/29/2016 Have you ever had an STD? No Prevention Strategies discussed: Other with Men only Use protection? No Alcohol Screening: Question Answer Notes Did you have a drink containing alcohol in the past year? Ye s Points 1 Interpretation Negative How many drinks did you have on a typica l day when you were drinking in the past year? 1 or 2 (0 points) How often did you have a drink containing alcohol in t he past year? Monthly or less (1 point) Tobacco Use: Question Answer Notes Are you a: current smoker Additional Findings: Tobacco User states can go a long time without smoking with no side effects Smoking Cessation Information Given 03/30/2020 Patient counseled on the dangers of tobacco use and urged to quit: 04/26/2020 How many cigarettes a day do you smoke? 5 or less Are you interested in quitting? Thinking about quitting Has cut down on # of cigs/day Counseled the patient on smoking cessation, education provid ed 03/30/2020 REASON FOR REFERRAL No Information VITAL SIGNS No information MEDICATIONS Medication SIG (Take, Route, Frequency, Duration) Notes Start Da te End Date Status Venlafaxine HCl ER 75 MG Orally Once a day Active ALPRAZolam ER 2 MG 1 tablet in the morning Orally Once a day Active Albuterol Sulfate HFA 108 (90 Base) MCG/ACT 1 puff as needed Inhalation every 4 hrs Active Albuterol every 4 hours as needed Not-Taking Ex-Lax 15 MG 1 tablet at bedtime as needed Orally Daily Active Clonidine HCl 0.3 MG 2 tablets Orally Once a day Active Linzess 290 MCG 1 capsule Orally Once a day May, Active [place] 5-325 MG 1 tablet as needed Orally q8h TID MDD3 for 30 Da ys May, Active Benadryl 25 mg oral 3 tablets as directed Active Tramadol HCl 50 MG 1/2 - 1 tablet Orally ever y 6 -8 hrs prn pain for 30 day(s) Nov, Not-Taking Vitamin C 500 mg 1 tablet Orally Once a day for 90 day(s) Not-Taking Probiotic 1 capsule Orally Daily No t-Taking MetFORMIN HCl ER 500 mg 3 tablet Orally Daily at bedtime for 90 day(s) Jan, Active Selegiline HCl 5 MG 1 tablet with breakfast and lunch Orally Twice a day Not-Taking TraZODone HCl 50 MG 1 tablet at bedtime as neede d Orally Once a day for 30 day(s) Active Xanax 1 mg 1 tablet Orally BID Activ e Singulair 10 MG 1 tablet in the evening Orally Once a day Not-Taking Calcium + D 600-200 MG-UNIT 1 tablet Orally Once a day for 30 day(s) Active BusPIRone HCl 15 MG 1 tablet Orally Twice a day Active Diclofenac Potassium 50 MG 1 tablet Orally Twice a day for 30 da y(s) Jun, Not-Taking Colace 100 MG 1 capsule as needed Orally bid for 30 day(s) Jul, Not-Taking Gabapentin 300 MG 1 capsule Orally bid Active PROCEDURES No Information RESULTS No Results REASON FOR VISIT Hydrocodone Refill MEDICAL (GENERAL) HISTORY Type Description Date Medical History Scoliosis - minimal dextro-c onvex curvature - scoliosis series on 01/2009 Medical History Endometriosis on Lupron for intermitt 2 years/ s/p 2 laser laproscopies Medical History Osteoporosis/osteopenia due to Lupron rx/ DEXA scan on 03/2009 Lumbar spine normal BMD for age Medical History OCD/ Social anxiety/ Bulemia nervosa purging type/ depressive disorder/ anxiety Medical History Psoriasis/Seborrheic dermatitis Medical History Right hallux valgus deformity s/p rt bun ionectomy 2009 Medical History Ganglion left hand- w/ nl radiograph s/p surgically removed Medical History Bulimia nervosa purging type Medical History Polycystic ovaries Medical History migraine Medical History allergic rhinitis Medical History Sinus Infection Medical History MDD Medical History Chronic PTSD Surgical History Laser laparoscopy for endome triosis with finding of minimal endometriosis Surgical History [place] tooth Surgical History Rt bunionectomy 07/2009 Surgical History Laser rx for benigh neoplasm eyelid liam hyun [id number] Surgical History septoplasty, adenoidectomy, Balloon Sinu plasty 08/2016 Surgical History invitro fert cycles with egg extractions [id number] Hospitalization History [place] 2006 Hospitalization History in childhood lung reason Hospitalization History [place], [place] For Eating Disorder 12/08 19-02/2020 Hospitalization History Hypotension 11/2019 Goals Section No Information Health Concerns No Information MEDICAL EQUIPMENT No Information MENTAL STATUS No Information FUNCTIONAL STATUS No Information ASSESSMENTS Encounter Date Diagnosis Assessment Notes Treatment Notes Treatm ent Clinical Notes May, Migraine without status migr ainosus, not intractable, unspecified migraine type (ICD-10 - G43.909) PLAN OF TREATMENT Medication Medication Name Sig Start Date Stop Date [place] 5-325 MG 1 tablet as needed Orally q8h TID MDD3 for 30 Da ys May, Insurance Providers Payer Name Payer Address Payer Phone Insured Name Patient Relati onship to Insured Coverage Start Date Coverage End Date [address] [phone] CHARANJIT GRAVES self
--- OUTSIDE RECORDS SUMMARY | 2020-07-16 15:51 | CCD ---
Author Author [facility] Organization [facility] Address Unknown Phone Unavailable Care Team Providers Care Associate Professor Of Automation Name Role Phone Nereyda Kat Unavailable PROBLEMS Type Condition ICD9-CM Code [id number] Code Onset Dates Condition S tatus SNOMED Code Notes Problem Female infertility, unspecified N97.9 Active 5462889 Problem Depressive disorder, not elsewhere classified 311 Active 45939567 Problem Polycystic ovarian syndrome E28.2 Active 6987 8008 Problem Generalized anxiety disorder F41.1 Active 218 77008 Problem Allergic rhinitis J30.9 Active 10414689 Problem Migraine without status migr ainosus, not intractable, unspecified migraine type G43.909 Active 27812601 Problem Vitamin D deficiency E55.9 Active 44963677 Problem Constipation, unspecified constipation type K59.00 Active 01856849 Problem Myalgia M79.1 Active 52660073 Problem 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 Active 203999807 Problem Lumbar facet arthropathy M46.96 Active 9059616 08 Problem Fibromyalgia M79.7 Active 722353217 Problem Cervicalgia M54.2 Active 63642359 Problem Other chronic pain G89.29 Active 44773029 Problem Facet arthropathy, cervical M12.88 Active 4275 46594 Problem Spondylosis of lumbar region without myelopathy or radiculopathy M47.816 Active 78809068 Problem Chronic migraine G43.709 Active 58520862 Problem Chronic migraine w/o aura w/o status migrainosus , not intractable G43.709 Active 377783444 Problem Myalgia, other site M79.18 Active 03308554 ALLERGIES Allergen (clinical drug ingredient) Drug/Non Drug Allergy do cumented on EMR Reaction Allergy Type Onset Date Status DERMABOND Rash Non Drug Allergy 03/30/2020 Active Environmental Stuffy nose, itchy eyes, sometimes hives Non Drug Allergy Active acetaminophen Tylenol([facility] Code:[address]-74) 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 Drug Allergy Active ENCOUNTERS from 1983 to 2020-06-14 Encounter Location Date Provider Diagnosis [facility] Pain Clinic [address] [place] [phone] May, Nereyda Kat IMMUNIZATIONS Vaccine Route Administration Date Status Influenza [...] College Language: Question Answer Notes Languages spoken: Tajik Voodoo: Question Answer Notes Voodoo 13 [employer] Sexual Hx: Question Answer Notes Had sex [...] capsule Orally Once a day May, Active [place] 5-325 MG 1 tablet as needed Orally [...] Information RESULTS No Results REASON FOR VISIT Duplicate MEDICAL (GENERAL) HISTORY Type Description Date Medical [...] with finding of minimal endometriosis Surgical History [place] tooth Surgical History Rt bunionectomy 07/2009 Surgical History Laser rx for benigh neoplasm eyelid liam hyun 117796 Surgical History septoplasty, adenoidectomy, Balloon Sinu plasty 08/2016 Surgical History invitro fert cycles with egg extractions 0025-9532 Hospitalization History [place] 2006 Hospitalization History in childhood lung reason Hospitalization History [place], [place] For Eating Disorder 12/08 19-02/2020 Hospitalization History Hypotension 11/2019 Goals Section No Information Health Concerns No Information MEDICAL EQUIPMENT No Information MENTAL STATUS No Information FUNCTIONAL STATUS No Information ASSESSMENTS No Information PLAN OF TREATMENT Medication Medication Name Sig Start Date Stop Date [place] 5-325 MG 1 tablet as needed Orally q8h TID MDD3 for 30 Da ys May, Insurance Providers Payer Name Payer Address Payer Phone Insured Name Patient Relati onship to Insured Coverage Start Date Coverage End Date [address] [phone] CHARANJIT GRAVES
--- OUTSIDE RECORDS SUMMARY | 2020-07-16 15:51 | CCD ---
Author Author [facility] Organization [facility] Address Unknown Phone Unavailable Care Team Providers Care Nurse Discharge Planner Name Role Phone Nereyda Kat Unavailable PROBLEMS Type Condition ICD9-CM Code [id number] Code Onset Dates Condition S tatus W/U Status Risk SNOMED Code Notes Problem Female infertility, unspecified N97.9 Active confi rmed 0174241 Problem Depressive disorder, not elsewhere classified 311 Active confirmed 40638246 Problem Polycystic ovarian syndrome E28.2 Active confirmed 79883864 Problem Generalized anxiety disorder F41.1 Active confirme d 76541373 Problem Allergic rhinitis J30.9 Active confirmed 61 980716 Problem Migraine without status migr ainosus, not intractable, unspecified migraine type G43.909 Active confirmed 16795113 Problem Vitamin D deficiency E55.9 Active confirmed 92540568 Problem Constipation, unspecified constipation type K59.00 Active confirmed 77685765 Problem Myalgia M79.1 Active confirmed 44496299 Problem 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 Active confirmed 663424161 Problem Lumbar facet arthropathy M46.96 Active confirmed 903015698 Problem Fibromyalgia M79.7 Active confirmed 4935862 05 Problem Cervicalgia M54.2 Active confirmed 86708082 Problem Other chronic pain G89.29 Active confirmed 8 6004980 Problem Facet arthropathy, cervical M12.88 Active confirmed 879165586 Problem Spondylosis of lumbar region without myelopathy or radiculopathy M47.816 Active confirmed 46792198 Problem Chronic migraine G43.709 Active confirmed 37 891093 Problem Chronic migraine w/o aura w/o status migrainosus , not intractable G43.709 Active confirmed 656201380 Problem Myalgia, other site M79.18 Active confirmed 33062283 ALLERGIES Allergen (clinical drug ingredient) Drug/Non Drug Allergy do cumented on EMR Reaction Allergy Type Onset Date Status DERMABOND Rash Non Drug Allergy 03/30/2020 Active Environmental Stuffy nose, itchy eyes, sometimes hives Non Drug Allergy Active acetaminophen Tylenol([facility] Code:[address]-93) 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 Drug Allergy Active ENCOUNTERS from 1983 to 2020-07-12 Encounter Location Date Provider Diagnosis [facility] Pain Clinic [address] [place] [address] Jun, Nereyda Kat IMMUNIZATIONS Vaccine Route Administration Date Status Influenza 6mo & up Fluzone Unknown May 29, 2016 Other s Influenza 6mo & up Fluzone IM Intramuscular Apr 28, 2013 Admi nistered Influenza 6mo & up Fluzone IM Intramuscular Feb 13, 2012 Admi nistered SOCIAL HISTORY Tobacco Use: Social History Observation Description Date Details (start date - stop date) Current Smoker Sex Assigned At : Social History Observation Description Sex Assigned At Unknown Education: Question Answer Notes Level of Education: College Language: Question Answer Notes Languages spoken: Slovenian Zoroastrian: Question Answer Notes Zoroastrian 13 Sabianist Sexual Hx: Question Answer Notes Had sex [...] Notes Start Da te End Date Status MetFORMIN HCl ER 500 mg 3 tablet Orally Daily at bedtime for 90 day(s) Jan, Unknown Clonidine HCl 0.3 MG 2 tablets Orally Once a day Unknown TraZODone HCl 50 MG 1 tablet at bedtime as neede d Orally Once a day for 30 day(s) Unknown Venlafaxine HCl ER 75 MG Orally Once a day Unknown Calcium + D 600-200 MG-UNIT 1 tablet Orally Once a day for 30 day(s) Unknown Probiotic 1 capsule Orally Daily Un known Hydrocodone-Acetaminophen 5-325 MG 1 tablet as needed Orally q8h prn mdd3 for 30 Days Jun, Active Colace 100 MG 1 capsule as needed Orally bid for 30 day(s) Jul, Unknown Ex-Lax 15 MG 1 tablet at bedtime as needed Orally Daily Unknown ALPRAZolam ER 2 MG 1 tablet in the morning Orally Once a day Unknown BusPIRone HCl 15 MG 1 tablet Orally Twice a day Unknown Selegiline HCl 5 MG 1 tablet with breakfast and lunch Orally Twice a day Unknown Vitamin C 500 mg 1 tablet Orally Once a day for 90 day(s) Unknown Albuterol Sulfate HFA 108 (90 Base) MCG/ACT 1 puff as needed Inhalation every 4 hrs Unknown Albuterol every 4 hours as needed Unknown Singulair 10 MG 1 tablet in the evening Orally Once a day Unknown Diclofenac Potassium 50 MG 1 tablet Orally Twice a day for 30 da y(s) Jun, Unknown Xanax 1 mg 1 tablet Orally BID Unkno wn Benadryl 25 mg oral 3 tablets as directed Unknown Gabapentin 300 MG 1 capsule Orally bid Unknown Linzess 290 MCG 1 capsule Orally Once a day May, Unknown Tramadol HCl 50 MG 1/2 - 1 tablet Orally ever y 6 -8 hrs prn pain for 30 day(s) Nov, Unknown PROCEDURES No Information RESULTS No Results REASON FOR VISIT No Information MEDICAL (GENERAL) HISTORY Type Description Date Medical [...] with finding of minimal endometriosis Surgical History [place] tooth Surgical History Rt bunionectomy 07/2009 Surgical History Laser rx for benigh neoplasm eyelid liam hyun 936855 Surgical History septoplasty, adenoidectomy, Balloon Sinu plasty 08/2016 Surgical History invitro fert cycles with egg extractions 2920-[address] [place] 2006 Hospitalization History in childhood lung reason Hospitalization History [place], [place] For Eating Disorder 12/08 19-02/2020 Hospitalization History Hypotension 11/2019 Goals Section No Information Health Concerns No Information MEDICAL EQUIPMENT No Information MENTAL STATUS No Information FUNCTIONAL STATUS No Information ASSESSMENTS No Information PLAN OF TREATMENT Medication Medication Name Sig Start Date Stop Date Hydrocodone-Acetaminophen 5-325 MG 1 tablet as needed Orally q8h prn mdd3 for 30 Days Jun, Next Appt Details Provider Name:Dae Aragon, 2020-07-16 01:00:00 PM, [address] [place] [address], [phone], Provider Name:Nereyda Kat, 2020-07-30 02 :15:00 PM, [address] [place] [address], [phone], Insurance Providers Payer Name Payer Address Payer Phone Insured Name Patient Relati onship to Insured Coverage Start Date Coverage End Date [place] [phone] CHARANJIT GRAVES
--- OUTSIDE RECORDS SUMMARY | 2020-07-16 15:51 | CCD ---
Author Author [facility] Organization [facility] Address Unknown Phone Unavailable Care Team Providers Care Precision Mechanical Instrument Maker Name Role Phone Dae Aragon Unavailable PROBLEMS Type Condition ICD9-CM Code [id number] Code Onset Dates Condition S tatus W/U Status Risk SNOMED Code Notes Problem Female infertility, unspecified N97.9 Active confi rmed 9718406 Problem Depressive disorder, not elsewhere classified 311 Active confirmed 64479534 Problem Polycystic ovarian syndrome E28.2 Active confirmed 31419772 Problem Generalized anxiety disorder F41.1 Active confirme d 42810608 Problem Allergic rhinitis J30.9 Active confirmed 61 619176 Problem Migraine without status migr ainosus, not intractable, unspecified migraine type G43.909 Active confirmed 99256062 Problem Vitamin D deficiency E55.9 Active confirmed 12414433 Problem Constipation, unspecified constipation type K59.00 Active confirmed 81166770 Problem Myalgia M79.1 Active confirmed 07138294 Problem 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 Active confirmed 004265946 Problem Lumbar facet arthropathy M46.96 Active confirmed 069532667 Problem Fibromyalgia M79.7 Active confirmed 2577866 05 Problem Cervicalgia M54.2 Active confirmed 27384832 Problem Other chronic pain G89.29 Active confirmed 8 5357420 Problem Facet arthropathy, cervical M12.88 Active confirmed 320894633 Problem Spondylosis of lumbar region without myelopathy or radiculopathy M47.816 Active confirmed 58843654 Problem Chronic migraine G43.709 Active confirmed 37 221277 Problem Chronic migraine w/o aura w/o status migrainosus , not intractable G43.709 Active confirmed 306860855 Problem Myalgia, other site M79.18 Active confirmed 15100420 ALLERGIES Allergen (clinical drug ingredient) Drug/Non Drug Allergy do cumented on EMR Reaction Allergy Type Onset Date Status DERMABOND Rash Non Drug Allergy 03/30/2020 Active Environmental Stuffy nose, itchy eyes, sometimes hives Non Drug Allergy Active acetaminophen Tylenol(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 Drug Allergy Active ENCOUNTERS from 1983 to 2020-07-10 Encounter Location Date Provider Diagnosis [facility] Pain Clinic [address] [place] [address] May, Dae Aragon IMMUNIZATIONS Vaccine Route Administration Date Status Influenza [...] College Language: Question Answer Notes Languages spoken: Slovak Druze: Question Answer Notes Druze 13 Worship Sexual Hx: Question Answer Notes Had sex [...] Information RESULTS No Results REASON FOR VISIT PROCEDURE MEDICAL (GENERAL) HISTORY Type Description Date Medical [...] with finding of minimal endometriosis Surgical History [place] tooth Surgical History Rt bunionectomy 07/2009 Surgical History Laser rx for benigh neoplasm eyelid liam hyun 778111 Surgical History septoplasty, adenoidectomy, Balloon Sinu plasty 08/2016 Surgical History invitro fert cycles with egg extractions 5884-3148 Hospitalization History [place] 2006 Hospitalization History in childhood lung reason Hospitalization History [place], [place] For Eating Disorder 12/08 19-02/2020 Hospitalization [...] Details Provider Name:Dae Aragon, 2020-07-16 01:00:00 PM, [address] [place] [address], [phone], Provider Name:Nereyda Kat, 2020-07-30 02 :15:00 PM, [address] [place] [address], [phone], Insurance Providers Payer Name Payer Address Payer Phone Insured Name Patient Relati onship to Insured Coverage Start Date Coverage End Date [place] [phone] CHARANJIT GRAVES
--- OUTSIDE RECORDS SUMMARY | 2020-07-16 15:51 | CCD ---
Author Author [facility] Organization [facility] Address Unknown Phone Unavailable Care Team Providers Care Day Spa Manager Name Role Phone Nereyda Kat Unavailable PROBLEMS Type Condition ICD9-CM Code [id number] Code Onset Dates Condition S tatus W/U Status Risk SNOMED Code Notes Problem Female infertility, unspecified N97.9 Active confi rmed 0461622 Problem Depressive disorder, not elsewhere classified 311 Active confirmed 91171619 Problem Polycystic ovarian syndrome E28.2 Active confirmed 31374044 Problem Generalized anxiety disorder F41.1 Active confirme d 42095076 Problem Allergic rhinitis J30.9 Active confirmed 61 663069 Problem Migraine without status migr ainosus, not intractable, unspecified migraine type G43.909 Active confirmed 60517697 Problem Vitamin D deficiency E55.9 Active confirmed 19116545 Problem Constipation, unspecified constipation type K59.00 Active confirmed 25296730 Problem Myalgia M79.1 Active confirmed 11331338 Problem 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 Active confirmed 956786842 Problem Lumbar facet arthropathy M46.96 Active confirmed 412784873 Problem Fibromyalgia M79.7 Active confirmed 2224741 05 Problem Cervicalgia M54.2 Active confirmed 16876264 Problem Other chronic pain G89.29 Active confirmed 8 3853513 Problem Facet arthropathy, cervical M12.88 Active confirmed 384144019 Problem Spondylosis of lumbar region without myelopathy or radiculopathy M47.816 Active confirmed 42024488 Problem Chronic migraine G43.709 Active confirmed 37 073701 Problem Chronic migraine w/o aura w/o status migrainosus , not intractable G43.709 Active confirmed 329416502 Problem Myalgia, other site M79.18 Active confirmed 38923326 ALLERGIES Allergen (clinical drug ingredient) Drug/Non Drug Allergy do cumented on EMR Reaction Allergy Type Onset Date Status DERMABOND Rash Non Drug Allergy 03/30/2020 Active Environmental Stuffy nose, itchy eyes, sometimes hives Non Drug Allergy Active acetaminophen Tylenol([facility] Code:[address]-77) 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 Drug Allergy Active ENCOUNTERS from 1983 to 2020-07-12 Encounter Location Date Provider Diagnosis [facility] Pain Clinic [address] [place] [address] Jun, Nereyda Kat Migraine without status migrainosus, not [...] College Language: Question Answer Notes Languages spoken: Turkish Confucianist: Question Answer Notes Confucianist 13 Quaker Sexual Hx: Question Answer Notes Had sex [...] Information RESULTS No Results REASON FOR VISIT HYDROCODONE/ACET REFILL MEDICAL (GENERAL) HISTORY Type Description Date Medical [...] with finding of minimal endometriosis Surgical History [place] tooth Surgical History Rt bunionectomy 07/2009 Surgical History Laser rx for benigh neoplasm eyelid liam hyun 785937 Surgical History septoplasty, adenoidectomy, Balloon Sinu plasty 08/2016 Surgical History invitro fert cycles with egg extractions 4634-4083 Hospitalization History [place] 2006 Hospitalization History in childhood lung reason Hospitalization History [place], [place] For Eating Disorder 12/08 19-02/2020 Hospitalization History Hypotension 11/2019 Goals Section No Information Health Concerns No Information MEDICAL EQUIPMENT No Information MENTAL STATUS No Information FUNCTIONAL STATUS No Information ASSESSMENTS Encounter Date Diagnosis Assessment Notes Treatment Notes Treatm ent Clinical Notes Jun, Migraine without status migr ainosus, not intractable, unspecified migraine type (ICD-10 - G43.909) PLAN OF TREATMENT Medication Medication Name Sig Start Date Stop Date Hydrocodone-Acetaminophen 5-325 MG 1 tablet as needed Orally q8h prn mdd3 for 30 Days Jun, Next Appt Details Provider Name:Dae Aragon, 2020-07-16 01:00:00 PM, [address] [place] [address], [phone], Provider Name:Nereyda Kat, 2020-07-30 02 :15:00 PM, [address] [place] [address], [phone], Insurance Providers Payer Name Payer Address Payer Phone Insured Name Patient Relati onship to Insured Coverage Start Date Coverage End Date [place] [phone] CHARANJIT GRAVES
--- OUTSIDE RECORDS SUMMARY | 2020-07-16 15:52 | CCD ---
Author Author [facility] Organization [facility] Address Unknown Phone Unavailable Care Team Providers Care Director Targeted Marketing Name Role Phone Nereyda Kat Unavailable PROBLEMS Type Condition ICD9-CM Code PPI27-GI Code Onset Dates Condition S tatus SNOMED Code Notes Problem Female infertility, unspecified N97.9 Active 6293043 Problem Depressive disorder, not elsewhere classified 311 Active 90591379 Problem Polycystic ovarian syndrome E28.2 Active 6987 8008 Problem Generalized anxiety disorder F41.1 Active 218 64807 Problem Allergic rhinitis J30.9 Active 83099028 Problem Migraine without status migr ainosus, not intractable, unspecified migraine type G43.909 Active 20055503 Problem Vitamin D deficiency E55.9 Active 81307853 Problem Constipation, unspecified constipation type K59.00 Active 33639547 Problem Myalgia M79.1 Active 93217759 Problem 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 Active 985150188 Problem Lumbar facet arthropathy M46.96 Active 5341479 08 Problem Fibromyalgia M79.7 Active 093317318 Problem Cervicalgia M54.2 Active 98065783 Problem Other chronic pain G89.29 Active 62653971 Problem Facet arthropathy, cervical M12.88 Active 4275 17578 Problem Spondylosis of lumbar region without myelopathy or radiculopathy M47.816 Active 56481954 Problem Chronic migraine G43.709 Active 34372458 Problem Chronic migraine w/o aura w/o status migrainosus , not intractable G43.709 Active 611904777 Problem Myalgia, other site M79.18 Active 20581674 ALLERGIES Allergen (clinical drug ingredient) Drug/Non Drug Allergy do cumented on EMR Reaction Allergy Type Onset Date Status DERMABOND Rash Non Drug Allergy 03/30/2020 Active Environmental Stuffy nose, itchy eyes, sometimes hives Non Drug Allergy Active acetaminophen Tylenol([facility] Code:[address]-56) 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 Drug Allergy Active ENCOUNTERS from 1983 to 2020-05-12 Encounter Location Date Provider Diagnosis [facility] [address] [place] [phone] Apr, Nereyda Kat Migraine without status migrainosus, not [...] College Language: Question Answer Notes Languages spoken: Egyptian Jew: Question Answer Notes Jew 13 Caodaism Sexual Hx: Question Answer Notes Had sex [...] Notes Start Da te End Date Status Diclofenac Potassium 50 MG 1 tablet Orally Twice a day for 30 da y(s) Jun, Not-Taking BusPIRone HCl 15 MG 1 tablet Orally Twice a day Active TraZODone HCl 50 MG 1 tablet at bedtime as neede d Orally Once a day for 30 day(s) Active ALPRAZolam ER 2 MG 1 tablet in the morning Orally Once a day Active Calcium + D 600-200 MG-UNIT 1 tablet Orally Once a day for 30 day(s) Active Singulair 10 MG 1 tablet in the evening Orally Once a day Not-Taking Clonidine HCl 0.3 MG 2 tablets Orally Once a day Active Selegiline HCl 5 MG 1 tablet with breakfast and lunch Orally Twice a day Not-Taking Linzess 290 MCG 1 capsule Orally Once a day May, Active Venlafaxine HCl ER 75 MG Orally Once a day Active Gabapentin 300 MG 1 capsule Orally bid Active MetFORMIN HCl ER 500 mg 3 tablet Orally Daily at bedtime for 90 day(s) Jan, Active Albuterol Sulfate HFA 108 (90 Base) MCG/ACT 1 puff as needed Inhalation every 4 hrs Active Ex-Lax 15 MG 1 tablet at bedtime as needed Orally Daily Active Albuterol every 4 hours as needed Not-Taking Colace 100 MG 1 capsule as needed Orally bid for 30 day(s) Jul, Not-Taking Vitamin C 500 mg 1 tablet Orally Once a day for 90 day(s) Not-Taking Benadryl 25 mg oral 3 tablets as directed Active Tramadol HCl 50 MG 1/2 - 1 tablet Orally ever y 6 -8 hrs prn pain for 30 day(s) Nov, Not-Taking [place] 5-325 MG 1 tablet as needed Orally q8h TID MDD3 for 30 Da ys Apr, Active Xanax 1 mg 1 tablet Orally BID Activ e Probiotic 1 capsule Orally Daily No t-Taking PROCEDURES No Information RESULTS No Results REASON FOR VISIT refill Hydrocodone MEDICAL (GENERAL) HISTORY Type Description Date Medical [...] with finding of minimal endometriosis Surgical History [place] tooth Surgical History Rt bunionectomy 07/2009 Surgical History Laser rx for benigh neoplasm eyelid liam hyun [id number] Surgical History septoplasty, adenoidectomy, Balloon Sinu plasty 08/2016 Surgical History invitro fert cycles with egg extractions 9444-1320 Hospitalization History [place] 2006 Hospitalization History in childhood lung reason Hospitalization History [place], [place] For Eating Disorder 12/08 19-02/2020 Hospitalization History Hypotension 11/2019 Goals Section No Information Health Concerns No Information MEDICAL EQUIPMENT No Information MENTAL STATUS No Information FUNCTIONAL STATUS No Information ASSESSMENTS Encounter Date Diagnosis Assessment Notes Treatment Notes Treatm ent Clinical Notes Apr, Migraine without status migr ainosus, not intractable, unspecified migraine type (ICD-10 - G43.909) PLAN OF TREATMENT Medication Medication Name Sig Start Date Stop Date [place] 5-325 MG 1 tablet as needed Orally q8h TID MDD3 for 30 Da ys Apr, Next Appt Details Provider Name:Dae Aragon, 2020-05-25 01:30:00 PM, [address] [place] [address], [phone], Provider Name:Nereyda Kat, 2020-06-08 01 :30:00 PM, [address] [place] [address], [phone], Insurance Providers Payer Name Payer Address Payer Phone Insured Name Patient Relati onship to Insured Coverage Start Date Coverage End Date [place] [phone] CHARANJIT GRAVES
--- OUTSIDE RECORDS SUMMARY | 2020-07-16 15:52 | CCD ---
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 Role Phone Dae Aragon Unavailable PROBLEMS Type Condition ICD9-CM Code QBS53-CI Code Onset Dates Condition S tatus SNOMED Code Notes Problem Female infertility, unspecified N97.9 Active 7663829 Problem Depressive disorder, not elsewhere classified 311 Active 01979471 Problem Polycystic ovarian syndrome E28.2 Active 6987 8008 Problem Generalized anxiety disorder F41.1 Active 218 31623 Problem Allergic rhinitis J30.9 Active 34319976 Problem Migraine without status migr ainosus, not intractable, unspecified migraine type G43.909 Active 97060823 Problem Vitamin D deficiency E55.9 Active 00176986 Problem Constipation, unspecified constipation type K59.00 Active 42896546 Problem Myalgia M79.1 Active 43604331 Problem 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 Active 781158967 Problem Lumbar facet arthropathy M46.96 Active 7074330 08 Problem Fibromyalgia M79.7 Active 849544434 Problem Cervicalgia M54.2 Active 37525042 Problem Other chronic pain G89.29 Active 12866104 Problem Facet arthropathy, cervical M12.88 Active 4275 42247 Problem Spondylosis of lumbar region without myelopathy or radiculopathy M47.816 Active 62504522 Problem Chronic migraine G43.709 Active 28608914 Problem Chronic migraine w/o aura w/o status migrainosus , not intractable G43.709 Active 355284145 Problem Myalgia, other site M79.18 Active 34234469 ALLERGIES Allergen (clinical drug ingredient) Drug/Non Drug Allergy do cumented on EMR Reaction Allergy Type Onset Date Status DERMABOND Rash Non Drug Allergy 03/30/2020 Active Environmental Stuffy nose, itchy eyes, sometimes hives Non Drug Allergy Active acetaminophen Tylenol([facility] Code:[address]-41) 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 Drug Allergy Active ENCOUNTERS from 1983 to 2020-05-26 Encounter Location Date Provider Diagnosis [facility] [address] [place] [id number] May, Dae Aragon IMMUNIZATIONS Vaccine Route Administration [...] College Language: Question Answer Notes Languages spoken: Czech Shinto: Question Answer Notes Shinto 13 U[place] Sexual Hx: Question Answer Notes Had sex [...] capsule Orally Once a day May, Active Benadryl 25 mg oral 3 tablets as directed Active [place] 5-325 MG 1 tablet as needed Orally q8h TID MDD3 for 30 Da ys Apr, Active Tramadol HCl 50 MG 1/2 - [...] Information RESULTS No Results REASON FOR VISIT PAT - Procedure MEDICAL (GENERAL) HISTORY Type Description Date Medical [...] with finding of minimal endometriosis Surgical History [place] tooth Surgical History Rt bunionectomy 07/2009 Surgical History Laser rx for benigh neoplasm eyelid liam hyun 868312 Surgical History septoplasty, adenoidectomy, Balloon Sinu plasty 08/2016 Surgical History invitro fert cycles with egg extractions 5336-1738 Hospitalization History [place] 2006 Hospitalization History in childhood lung reason Hospitalization History [place], [place] For Eating Disorder 12/08 19-02/2020 Hospitalization History [place] 11/2019 Goals Section No Information Health Concerns No Information MEDICAL EQUIPMENT No Information MENTAL STATUS No Information FUNCTIONAL STATUS No Information ASSESSMENTS No Information PLAN OF TREATMENT Next Appt Details Provider Name:Dae Aragon, 2020-06-10 02:30:00 PM, [address] [place] [address], [phone], Provider Name:Nereyda Kat, 2020-06-24 02 :15:00 PM, [address] [place] [address], [phone], Insurance Providers Payer Name Payer Address Payer Phone Insured Name Patient Relati onship to Insured Coverage Start Date [place]age End Date [place] [phone] CHARANJIT GRAVES
--- OUTSIDE RECORDS SUMMARY | 2020-07-16 15:52 | CCD | Continuity of Care Document ---
Author Author [facility] Address [address] [place] [address] Phone Support Name Relationship Address [place] [address] Emmanuel David PRS [address] [place] [address] Maynor Mendenhall PRS [address] [place] [address] Kelly GILLIS PRS [address] [place] [address] Maynor Coates PRS [address] [place] [address] Krupa Deshpande PRS [address] [place] [address] Basilio Fields PRS [address] [place] [address] Lissette Smith PRS [address] [place] [address] Nanci Vazquez PRS [address] [place] [address] Allergies, Adverse Reactions, Alerts Allergen Type Severity Reaction Last Updated Verified Status soy Allergy Moderate Hives April 09, 2020 2:59pm Yes Active SURGICAL GLUE Allergy Mi ld redness April 09, 2020 2:59pm Yes Active acetaminophen Adverse Reaction Unknown MTHFR gene mutation April 09 2:59pm Yes Active Medications Medication Status Dose Units Route Directions Qty Days Start Date End Date Instructions Methylprednisolone Discontinued 0 PO per package directi ons October 24, 2018 9:21a m April 21, 2019 10:22am 4 mg tabl ets PO PER PKG DIR; Hydrocodone-Acetaminophen Active 1 TAB PO Three times a day 90 October 24, 2018 9:23 am Gabapentin Discontinued 300 MG PO Three times a day 180 October 24, 2018 9:24am December 23, 2018 8:22am Metformin Discontinued PO 60 October 24, 2018 9:24am December 27 9:33am Gabapentin Discontinued 300 MG PO 2 Times Per Day 60 December 23, 2018 8:20am March 22, 2019 11:02pm Linaclotide (Linzess) 290 mcg capsule Discontinued 290 MCG PO Once Per Day 30 December 23, 2018 8:21am June 05, 2019 10:42am Alprazolam (Xanax) 1 mg tablet Discontinue d 1 MG PO QD January 23 9:09am February 20, 2019 10:39am Alprazolam (Xanax Xr) 3 mg tablet extended release 24 hr Discontinued 3 MG PO Once Per Day January 23, 2019 9:09am February 202018 10:39am Alprazolam (Xanax) 1 mg tablet Discontinue d 1 MG PO QD February 20, 2019 10:38am March 21, 2019 2:00pm Alprazolam (Xanax Xr) 3 mg tablet extended release 24 hr Discontinued 3 MG PO Once Per Day February 20, 2019 10:38am March 212018 2:00pm Venlafaxine (Effexor Xr) 37.5 mg capsule ,extended release 24hr Discontinued 37.5 MG PO daily March 24, 2019 11:05am June 05, 2019 10:42am Gabapentin Discontinued 300 MG PO 2 Times Per Day 180 April 21, 2019 10:12am April 21, 2019 10:26am Alprazolam (Xanax Xr) 3 mg tablet extended release 24 hr Discontinued 3 MG PO Once Per Day 30 April 21, 2019 10:22am May 16, 2019 2:41pm Gabapentin Active 300 MG PO 2 Times Per Day April 21, 2019 10:26am Venlafaxine (Effexor Xr) 37.5 mg capsule ,extended release 24hr Discontinued 37.5 MG PO daily 30 June 05, 2019 10:40am July 05, 2019 12:04am Linaclotide (Linzess) 290 mcg capsule Active 290 MCG PO Once Per Day June 05, 2019 10:40am Amoxicillin-Pot Clavulanate (Augmentin) 500-125 mg tab let Discontinued 1 TAB PO 2 Times Per Day 20 June 05, 2019 10:41am May 222019 12:05am Alprazolam (Xanax) 1 mg tablet Discontinue d 1 MG PO Three times a day 12 June 13, 2019 12:03pm June 16, 2019 8:51am Alprazolam (Xanax) 1 mg tablet Discontinue d 1 MG PO QD 30 June 16, 2019 8:51am July 11, 2019 2:57pm Alprazolam (Xanax Xr) 3 mg tablet extended release 24 hr Discontinued 3 MG PO Once Per Day 30 June 16, 2019 8:51am July 24, 2019 9:50am Fluconazole (Diflucan) 150 mg tablet Discontinued 150 MG PO daily 1 June 16, 2019 1 0:23am June 17, 2019 12:05am Venlafaxine (Effexor Xr) 75 mg capsule,extended releas e 24hr Discontinued 75 MG PO Every Morning July 11, 2019 2:51pm December 9:56am Alprazolam (Xanax) 1 mg tablet Discontinue d 1 MG PO Three times a day 90 July 11 0 2:56pm July 11, 2019 2:59pm Alprazolam (Xanax) 1 mg tablet Discontinue d 1 MG PO Three times a day 45 July 11 0 2:59pm July 26, 2019 12:03am Buspirone Discontinued MG PO July 24, 2019 9:22am August 21, 2019 3:28pm Alprazolam (Xanax Xr) 3 mg tablet extended release 24 hr Discontinued 3 MG PO Once Per Day July 24, 2019 9:49am August 06, 2 020 11:02pm Alprazolam (Xanax Xr) 3 mg tablet extended release 24 hr Discontinued 3 MG PO Once Per Day August 08, 2019 1:50pm August 20, 2 020 2:07pm Buspirone Discontinued 15 MG PO 2 Times Per Day August 21, 2019 1:42pm December 28, 2019 9:28am Alprazolam (Xanax Xr) 3 mg tablet extended release 24 hr Discontinued 3 MG PO Once Per Day 15 August 21, 2019 2:07pm September 03, 2 020 2:11pm Alprazolam (Xanax Xr) 3 mg tablet extended release 24 hr Discontinued 3 MG PO Once Per Day 15 September 04, 2019 2:10pm September 18, 2019 2:06pm Gabapentin Discontinued 300 MG PO 2 Times Per Day 60 September 04, 2019 2:10pm December 13, 2019 2:01pm Alprazolam (Xanax Xr) 3 mg tablet extended release 24 hr Discontinued 3 MG PO Once Per Day 15 September 18, 2019 2:06pm October 01 20 1:43pm Alprazolam (Xanax Xr) 3 mg tablet extended release 24 hr Discontinued 3 MG PO Once Per Day 15 October 02, 2019 1:43pm October 16, 2019 1:23pm Alprazolam (Xanax Xr) 3 mg tablet extended release 24 hr Discontinued 3 MG PO Once Per Day 15 October 16, 2019 1:23pm October 29 0 1:57pm Alprazolam (Xanax Xr) 3 mg tablet extended release 24 hr Discontinued 3 MG PO Once Per Day 15 October 30, 2019 1:56pm November 12 20 11:01pm Alprazolam (Xanax Xr) 3 mg tablet extended release 24 hr Discontinued 3 MG PO Once Per Day 15 November 14, 2019 12:52pm November 23 10:12am Alprazolam (Xanax Xr) 3 mg tablet extended release 24 hr Discontinued 3 MG PO Once Per Day 15 November 28, 2019 12:44pm December 09, 2 020 12:13pm Alprazolam (Xanax) 1 mg tablet Discontinue d 1 MG PO QD 7 December 24, 2019 8:3 5am December 30, 2019 7:32am Takes 1 x/d ay when she needs it. Clonidine Hcl Discontinued 0.3 MG PO At Bedtime 60 December 31, 2019 9:48am March 05, 2020 12:54pm Fluconazole Active 150 MG PO Q3D 2 December 31, 2019 9:49am Alprazolam (Xanax) 1 mg tablet Discontinue d 1 MG PO daily 15 15 December 31, 2019 9:49am January 12, 2020 10:03am Alprazolam (Xanax) 1 mg tablet Discontinue d 1 MG PO 2 Times Per Day 6 January 12, 2020 10 :02am January 14, 2020 11:00pm Trazodone Active 50 MG PO daily 30 April 01, 2020 3:22pm Metformin Discontinued 1 500 MG PO Once Per Day December 10, 2013 8:42pm January 30, 2018 12:58pm Tizanidine Discontinued 4 MG PO Every 8-12 hours December 10, 2013 8:43pm October 06, 2017 10:42am Alprazolam (Xanax) 1 MG tablet Discontinue d 1 MG PO NEEDED December 10, 2013 8:44 pm October 06, 2017 10:42am Citalopram Discontinued 40 MG PO Once Per Day December 10, 2013 8:45pm October 06, 2017 10:42am Clonidine Hcl Discontinued 2 TAB PO At Bedtime October 06, 2017 10:42am January 30, 2018 12:58pm Alprazolam (Xanax Xr) 1 mg tablet extended release 24 hr Discontinued 1 TAB PO Once Per Day October 06, 2017 10:42am May 24, 2018 3:43pm Selegiline (Emsam) 9 mg/24 hr patch 24 hour Discontinued 1 PATCH TOP Once Per Day October 06, 2017 10:42am June 10, 2018 5:37pm Gabapentin Discontinued 1 TAB PO Once Per Day June 10, 2018 5:35pm October 24, 2018 9:24am Hydrocodone-Ibuprofen Discontinued 1 EACH PO Every 6 hours June 10, 2018 7:45pm June 19, 2018 11:12pm Methocarbamol (Robaxin-750) 750 MG tablet Discontinued 750 MG PO 2 Times Per Day 10 June 19, 2018 10:41pm August 26, 2018 8:00am Ondansetron Discontinued 4 MG PO Q8H June 10, 2019 3:31pm December 28, 2019 9:33am Metformin Active 500 MG PO Once Per Day December 28, 2019 9:34am Buspirone Active 15 MG PO 2 Times Per Day December 28, 2019 9:36am Fluconazole Discontinued 150 MG PO Once Per Day December 28, 2019 9:38am December 30, 2019 7:32am Venlafaxine (Effexor Xr) 150 mg Capsule,Extended Relea se 24hr Discontinued 150 MG PO Once Per Day December 28, 2019 9:40am March 2:45pm Metoclopramide Hcl Active 5 MG PO before meals December 28, 2019 9:40am Sod Phos Di, Mariposa-K Phos Mariposa (Virt-Phos 250 Neutral) 250 mg tablet Active 1 TAB PO Three times daily WITH Meals December 28, 2019 9:40am Clonidine Hcl Discontinued 0.6 MG PO At Bedtime December 28, 2019 9:48am December 30, 2019 7:32am Clonazepam Discontinued 2 MG PO 2 Times Per Day December 28, 2019 9:48am December 30, 2019 7:32am Sennosides Active 100 MG PO Once Per Day December 28, 2019 11:32am Alprazolam Discontinued MG PO December 28, 2019 11:42am December 29, 2019 7:28am Orlistat (Mitesh) 60 mg Capsule Active 60 MG PO Once Per Day December 28, 2019 11: 42am Clonidine Hcl Discontinued 0.3 MG PO At Bedtime 14 December 30, 2019 7:31am December 31, 2019 9:50am Alprazolam Discontinued 2 MG PO Once Per Day 10 December 30, 2019 7:38am January 07, 2020 12:49pm Clonidine Hcl Discontinued 2 MG PO At Bedtime 60 January 30, 2018 12:58pm December 16, 2018 1:37pm Alprazolam (Xanax Xr) 3 MG tablet extended release 24 hr Discontinued 3 MG PO Once Per Day January 30, 2018 12:58pm May 24, 2018 3:43pm Linaclotide (Linzess) 290 MCG capsule Discontinued 290 MCG PO Once Per Day January 30, 2018 12:58pm August 26, 2018 8:00am Metformin Hcl Discontinued 750 MG PO 2 Times Per Day 60 January 30, 2018 12:58pm October 24, 2018 9:24am Alprazolam (Xanax Xr) 3 MG tablet extended release 24 hr Discontinued 3 MG PO Once Per Day 30 May 24, 2018 3:44pm June 4:24pm Alprazolam (Xanax Xr) 1 mg tablet extended release 24 hr Discontinued 1 TAB PO Once Per Day 30 May 24, 2018 3:44pm May 9:36am Alprazolam Discontinued 1 MG PO Once Per Day 30 May 27, 2018 10:06am August 26, 2018 8:00am Selegiline Hcl Discontinued June 11, 2018 2:18June 12, 2018 8:44am Linaclotide (Linzess) 290 MCG capsule Discontinued 290 MCG PO Once Per Day June 12, 2018 9:00am September 18, 2018 9:11am Linaclotide (Linzess) 290 MCG capsule Discontinued 290 MCG PO Once Per Day June 12, 2018 9:00am December 23, 2018 8:22am Tuberculin Ppd (Tubersol 0.1 Ml (Ppd )*) 5 TUB UNIT/0.1 ML solution Discontinued 5 TUB ID ONE TIME June 17, 2018 9:19am June 172018 9:38am Hydrocodone-Ibuprofen Discontinued 1 EACH PO 2 Times Per Day 15 June 20, 2018 11:44am June 20, 2018 1:05pm Hydrocodone-Ibuprofen Discontinued 1 EACH PO 2 Times Per Day 14 June 20, 2018 1:23pm August 26, 2018 8:00am [id number] Alprazolam (Xanax Xr) 3 MG tablet extended release 24 hr Discontinued 3 MG PO Once Per Day 10 June 24, 2018 4:24pm June 212018 7:52am Alprazolam (Xanax) 1 MG tablet Discontinue d 1 MG PO QD June 26, 2018 9:58am July 26, 2018 8:59am Alprazolam (Xanax Xr) 3 MG tablet extended release 24 hr Discontinued 3 MG PO Once Per Day 30 July 04, 2018 7:53am July 1:22pm Alprazolam (Xanax) 1 MG tablet Discontinue d 1 MG PO QD July 26, 2018 8: 59am August 23, 2018 2:29pm Alprazolam (Xanax Xr) 3 MG tablet extended release 24 hr Discontinued 3 MG PO Once Per Day August 02, 2018 1:22pm August 30, 2018 1:58pm Reference #: [id number] Alprazolam (Xanax) 1 MG tablet Discontinue d 1 MG PO QD August 23, 2018 2: 29pm September 18, 2018 10:38am Reference #: [id number] Alprazolam (Xanax) 1 MG tablet Discontinue d 1 MG PO QD August 23, 2018 2: 29pm September 20, 2018 1:21pm Reference #: [id number] Oxycodone Discontinued August 26, 2018 8:00am October 24 9 9:23am Alprazolam (Xanax Xr) 3 MG tablet extended release 24 hr Discontinued 3 MG PO Once Per Day August 30, 2018 1:58pm September 18 9 10:44am Reference #: [id number] Alprazolam (Xanax Xr) 3 MG tablet extended release 24 hr Discontinued 3 MG PO Once Per Day August 30, 2018 1:58pm September 30 3:32pm Reference #: [id number] Alprazolam (Xanax) 1 mg tablet Discontinue d 1 MG PO QD September 20, 2018 1:21 pm October 23, 2018 1:52pm Reference #: [id number] Alprazolam (Xanax Xr) 3 mg tablet extended release 24 hr Discontinued 3 MG PO Once Per Day September 30, 2018 3:31pm October 30 3:05pm Alprazolam (Xanax) 1 mg tablet Discontinue d 1 MG PO QD October 23, 2018 1:5 1pm November 20, 2018 1:41pm Alprazolam (Xanax Xr) 3 mg tablet extended release 24 hr Discontinued 3 MG PO Once Per Day October 30, 2018 3:05pm November 28 11:55am Alprazolam (Xanax) 1 mg tablet Discontinue d 1 MG PO QD November 20, 2018 1:4 1pm December 20, 2018 11:33am Alprazolam (Xanax Xr) 3 mg tablet extended release 24 hr Discontinued 3 MG PO Once Per Day November 28, 2018 11:55am December 27, 2018 2:07pm Clonidine Hcl Discontinued 0.6 MG PO At Bedtime 60 December 16, 2018 1:37pm January 14, 2019 11:00pm Alprazolam (Xanax) 1 mg tablet Discontinue d 1 MG PO QD December 20, 2018 1 1:32am January 23, 2019 9:10am Alprazolam (Xanax Xr) 3 mg tablet extended release 24 hr Discontinued 3 MG PO Once Per Day December 27, 2018 2:06pm January 9:10am Clonidine Hcl Discontinued 0.6 MG PO At Bedtime 60 January 17, 2019 3:09pm March 20, 2019 11:56am Clonidine Hcl Discontinued 0.6 MG PO At Bedtime 60 March 20, 2019 11:56am May 16, 2019 2:40pm Alprazolam (Xanax) 1 mg tablet Discontinue d 1 MG PO QD March 21, 2019 2:00pm April 16, 2019 3:31pm Alprazolam (Xanax Xr) 3 mg tablet extended release 24 hr Discontinued 3 MG PO Once Per Day March 21, 2019 2:00pm April 212018 10:24am Alprazolam (Xanax) 1 mg tablet Discontinue d 1 MG PO QD April 16, 9 3:30pm May 16, 2019 2:40pm Azithromycin Discontinued 0 PO .COMPLEX April 24, 2019 10:15am June 05, 2019 10:30am take 500 mg today (day 1), then 250 mg f or 4 days (days 2-5) PO Alprazolam (Xanax) 1 mg tablet Discontinue d 1 MG PO QD May 16 201 9 2:40pm June 16, 2019 8:52am Alprazolam (Xanax Xr) 3 mg tablet extended release 24 hr Discontinued 3 MG PO Once Per Day May 16, 2019 2:40pm May 222019 8:52am Clonidine Hcl Discontinued 0.6 MG PO At Bedtime 60 May 16, 2019 2:40pm December 03, 2019 7:41am Fluconazole (Diflucan) 150 mg tablet Discontinued 150 MG PO daily 1 June 12, 2019 4 :58pm June 14, 2019 12:06am Alprazolam (Xanax) 1 mg tablet Discontinue d 1 MG PO Three times a day 10 June 18, 2019 8:53am June 21, 2019 12:06am Alprazolam (Xanax) 1 mg tablet Discontinue d 1 MG PO QD August 01, 2019 1 :44pm August 28, 2019 1:55pm Alprazolam (Xanax) 1 mg tablet Discontinue d 1 MG PO QD August 28, 2019 1: 55pm September 25, 2019 2:31pm Alprazolam (Xanax) 1 mg tablet Discontinue d 1 MG PO QD September 25, 2019 2:31 pm October 24, 2019 2:01pm Alprazolam (Xanax) 1 mg tablet Discontinue d 1 MG PO QD October 24, 2019 2:0 1pm November 24, 2019 10:11am Alprazolam (Xanax) 1 mg tablet Discontinue d 1 MG PO QD 30 November 24, 2019 10: 09am December 22, 2019 2:34pm Alprazolam (Xanax Xr) 3 mg tablet extended release 24 hr Discontinued 3 MG PO Once Per Day November 24, 2019 10:11am November 27 12:45pm Clonidine Hcl Discontinued 0.6 MG PO At Bedtime 60 December 03, 2019 7:41am December 28, 2019 9:48am Alprazolam (Xanax Xr) 3 mg tablet extended release 24 hr Discontinued 3 MG PO Once Per Day December 10, 2019 12:13pm December 11, 020 1:57pm Alprazolam (Xanax Xr) 3 mg tablet extended release 24 hr Discontinued 3 MG PO Once Per Day 7 December 12, 2019 1:56pm December 17 11:01pm Alprazolam (Xanax) 1 mg tablet Discontinue d 1 MG PO QD 3 December 22, 2019 2:3 3pm December 24, 2019 8:35am Alprazolam Discontinued 2 MG PO Once Per Day 02 27January 07, 2020 12:48pm January 16, 2020 11:01pm 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: 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 Alprazolam (Xanax) 1 mg tablet Discontinue d 1 MG PO daily 15 February 19, 2020 10:45am March 04, 2020 2:50pm Alprazolam Discontinued 2 MG PO Once Per Day February 24, 2020 5:45pm March 12, 2020 2:00pm 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 Alprazolam (Xanax) 1 mg tablet Discontinue d 1 MG PO 2 Times Per Day 60 March 04, 2020 2:49pm April 01, 2020 3:01pm Clonidine Hcl Discontinued 0.3 MG PO At Bedtime March 05, 2020 12:54pm March 29, 2020 3:10pm Alprazolam Discontinued 2 MG PO Once Per Day March 12, 2020 1:57pm March 29, 2020 3:07pm Lmefol [id number]-Algal (Cerefolin Nac (Algal Oil)) 6 mg-600 mg- 2 mg- 90.314 mg tablet Active 1 TAB PO daily 90 March 15, 2020 2:13pm Venlafaxine (Effexor Xr) 150 mg capsule,extended relea se 24hr Active 150 MG PO Once Per Day March 29, 2020 2:44pm Alprazolam Discontinued 2 MG PO Once Per Day March 29, 2020 3:06pm April 12, 2020 2:41pm Clonidine Hcl Active 0.3 MG PO At Bedtime March 29, 2020 3:08pm Venlafaxine Active 75 MG PO Every Morning March 29, 2020 3:08pm take with 150 mg Alprazolam (Xanax) 1 mg tablet Discontinue d 1 MG PO 2 Times Per Day 60 April 01 0 3:01pm April 03, 2020 12:01am Alprazolam Discontinued 2 MG PO Once Per Day April 12, 2020 2:40pm May 10, 2020 1:55pm Alprazolam (Xanax) 1 mg tablet Discontinue d 1 MG PO 2 Times Per Day 60 April 30 0 2:15pm May 01, 2020 12:01am Ergocalciferol (Vitamin D2) Active 1250 MCG PO Every Week 5 May 10, 2020 1:07pm Alprazolam Active 2 MG PO Once Per Day May 10, 2020 1:55pm Alprazolam (Xanax) 1 mg tablet Discontinue d 1 MG PO 2 Times Per Day 60 May 28, 2020 1:28pm May 29, 2020 12:01am Problems Active Problems Medical Problem Onset Date Status Upper respiratory infection Active Anorexia Active Sinus pain Active Anxiety Active Eating disorder Active Laxative abuse Active Body aches Active Hypotension Active Contusion of right elbow Active Acute myofascial strain of lumbar region Active Hypokalemia Active Procedures Procedure Date Performed Status Xray Chest 2 view PA/LAT April 092019 4:36pm completed Streptococcus Rapid Screen April 09, 2020 completed Streptococcus Rapid Screen April 09, [address] Head without contrast December 9:35pm completed CT Abd/pel w/o contrast December 29, 2019 10:13am completed US Echo complete December 29, 2019 9:56am completed Blood Culture December 28, [address] Head without contrast December 13, 2019 2:55pm completed Xray Chest 2 view PA/LAT December 13, 2019 1:33pm completed Relevant Diagnostic Tests and/or Laboratory Data Laboratory Results Test Date/Time Result Interpretation Reference Range Result Comment Performing Site White Blood Count April 09 0 3:40pm 9.5 10e3/uL 4.45-10.71 [facility], [address] [place] [id number] White Blood Count March 09, 2020 11:15am 5.5 10e3/uL 4.45-10.71 [facility], [address] [place] [address] [id number] White Blood Count January 10, 2020 8:43pm 5.7 10e3/uL 4.45-10.71 [facility], [address] [place] [address] White Blood Count December 30, 2019 4:40am 5.1 10e3/uL 4.45-10.71 [facility], [address] [place] [address] White Blood Count December 24, 2019 8:45am 6.5 10e3/uL 4.45-10.71 [facility], [address] [place] [id number] White Blood Count December 13, 2019 2:05pm 4.9 10e3/uL 4.45-10.71 [facility], [address] [place] [address] [id number] White Blood Count December 10, 2019 11:04am 5.7 10e3/uL 4.45-10.71 [facility], [address] [place] [address] White Blood Count November 14, 2019 1:15pm 4.9 10e3/uL 4.45-10.71 [facility], [address] [place] [address] White Blood Count October 30, 2019 1:59pm 7.9 10e3/uL 4.45-10.71 [facility], [address] [place] [address] [id number] White Blood Count July 24, 2019 10:08am 5.5 10e3/uL 4.45-10.71 [facility], [address] [place] [address] [id number] White Blood Count June 10, 2019 12:24pm 9.0 10e3/uL 4.45-10.71 [facility], [address] [place] [address] Red Blood Count April 09, 2020 3:40pm 3.79 10e6/uL 4.20-5.40 [facility], [address] [place] [address] Red Blood Count March 09, 2020 11:15am 3.65 10e6/uL 4.20-5.40 [facility], [address] [place] [address] Red Blood Count January 10, 2020 8:43pm 3.41 10e6/uL 4.20-5.40 [facility], [address] [place] [address] Red Blood Count December 30, 2019 4:40am 3.25 10e6/uL 4.20-5.40 [facility], [address] [place] [address] Red Blood Count December 24, 2019 8:45am 3.68 10e6/uL 4.20-5.40 [facility], [address] [place] [address] Red Blood Count December 13, 2019 2:05pm 3.52 10e6/uL 4.20-5.40 [facility], [address] [place] [address] Red Blood Count December 10, 2019 11:04am 3.66 10e6/uL 4.20-5.40 [facility], [address] [place] [address] Red Blood Count November 14, 2019 1:15pm 3.63 10e6/uL 4.20-5.40 [facility], [address] [place] [address] Red Blood Count October 30, 2019 1:59pm 3.96 10e6/uL 4.20-5.40 [facility], [address] [place] [address] Red Blood Count July 24, 2019 10:08am 4.20 10e6/uL 4.20-5.40 [facility], [address] [place] [address] [id number] Red Blood Count June 10, 2019 12:24pm 4.25 10e6/uL 4.20-5.40 [facility], [address] [place] [address] [id number] Hemoglobin April 09, 2020 3:40pm 12.8 g/dL 10.7-15.4 [facility], [address] [place] [address] [id number] Hemoglobin March 09, 2020 11:15am 12.5 g/dL 10.7-15.4 [facility], [address] [place] [address] Hemoglobin January 10, 2020 8:43pm 11.7 g/dL 10.7-15.4 [facility], [address] [place] [address] Hemoglobin December 30, 2019 4:40am 11.4 g/dL 10.7-15.4 [facility], [address] [place] [address] Hemoglobin December 24, 2019 8:45am 12.7 g/dL 10.7-15.4 [facility], [address] [place] [address] Hemoglobin December 13, 2019 2:05pm 12.2 g/dL 10.7-15.4 [facility], [address] [place] [address] Hemoglobin December 10, 2019 11:04am 12.6 g/dL 10.7-15.4 [facility], [address] [place] [address] Hemoglobin November 14, 2019 1:15pm 12.6 g/dL 10.7-15.4 [facility], [address] [place] [address] Hemoglobin October 30, 2019 1:59pm 13.4 g/dL 10.7-15.4 [facility], [address] [place] [address] Hemoglobin July 24, 2019 10:08am 14.2 g/dL 10.7-15.4 [facility], [address] [place] [address] Hemoglobin June 10, 2019 12:24pm 14.6 g/dL 10.7-15.4 [facility], [address] [place] [address] Hematocrit April 09, 2020 3:40pm 38.1 % 37-47 [facility], [address] [place] [address] Hematocrit March 09, 2020 11:15am 37.6 % 37-47 [facility], [address] [place] [address] Hematocrit January 10, 2020 8:43pm 35.0 % 37-47 [facility], [address] [place] [address] Hematocrit December 30, 2019 4:40am 32.6 % 37-47 [facility], [address] [place] [address] [id number] Hematocrit December 24, 2019 8:45am 37.5 % 37-47 [facility], [address] [place] [address] [id number] Hematocrit December 13, 2019 2:05pm 35.6 % 37-47 [facility], [address] [place] [address] [id number] Hematocrit December 10, 2019 11:04am 37.5 % 3747 [facility], [address] [place] [address] [id number] Hematocrit November 14, 2019 1:15pm 35.1 % 37-47 [facility], [address] [place] [address] [id number] Hematocrit October 30, 2019 1:59pm 38.5 % 37-47 [facility], [address] [place] [address] [id number] Hematocrit July 24, 2019 10:08am 41.8 % 37-47 [facility], [address] [place] [address] [id number] Hematocrit June 10, 2019 12:24pm 40.8 % 37-47 [facility], [address] [place] [address] [id number] Mean Corpuscular Volume March 3:40pm 100.5 fl 80-96 [facility], [address] [place] [address] [id number] Mean Corpuscular Volume February 11:15am 103.0 fl 80-96 [facility], [address] [place] [address] 12664 Mean Corpuscular Volume January 10, 2020 8:43pm 102.6 fl 80-96 [facility], [address] [place] [address] 83478 Mean Corpuscular Volume December 30, 2019 4:40am 100.3 fl 80-96 [facility], [address] [place] [address] 25208 Mean Corpuscular Volume December 24, 2019 8:45am 101.9 fl 80-96 [facility], [address] [place] [address] 99060 Mean Corpuscular Volume December 12, 020 2:05pm 101.1 fl 80-96 [facility], [address] [place] [address] 81664 Mean Corpuscular Volume December 09, 2 020 11:04am 102.5 fl 80-96 Delta: 96.7 on 11/14/19-1415Repeated by: Mariel Brito 12/10/19 1335.Result Confirmation:102.2 fl [facility], [address] [place] [address] 87244 Mean Corpuscular Volume November 13, 020 1:15pm 96.7 fl 80- [facility], [address] [place] [address] 51305 Mean Corpuscular Volume October 29, 020 1:59pm 97.[address] [facility], [address] [place] [address] 28150 Mean Corpuscular Volume July 23 020 10:08am 99.[address] [facility], [address] [place] [address] 92529 Mean Corpuscular Volume May 12:24pm 96.0 fl 80- [facility], [address] [place] [address] 57008 Mean Corpuscular Hemoglobin April 09, 2020 3:40pm 33.8 pg 27-31 [facility], [address] [place] [address] 46780 Mean Corpuscular Hemoglobin March 09, 2020 11:15am 34.2 pg 27-31 [facility], [address] [place] [address] 02242 Mean Corpuscular Hemoglobin December 202019 8:43pm 34.3 pg 27-31 [facility], [address] [place] [address] 75972 Mean Corpuscular Hemoglobin December 192019 4:40am 35.1 pg 27-31 [facility], [address] [place] [address] 29949 Mean Corpuscular Hemoglobin December 232019 8:45am 34.5 pg 27-31 [facility], [address] [place] [address] 10033 Mean Corpuscular Hemoglobin November 2:05pm 34.7 pg 27-31 [facility], [address] [place] [address] 23311 Mean Corpuscular Hemoglobin November d2019 11:04am 34.4 pg 27-31 [facility], [address] [place] [address] 56917 Mean Corpuscular Hemoglobin October h2019 1:15pm 34.7 pg 27-31 [facility], [address] [place] [address] 96154 Mean Corpuscular Hemoglobin October 1:59pm 33.8 pg 27-31 [facility], [address] [place] [address] 21180 Mean Corpuscular Hemoglobin July 10:08am 33.8 pg [facility], [address] [place] [address] 77129 Mean Corpuscular Hemoglobin June 10, 2019 12:24pm 34.4 pg [facility], [address] [place] [address] 84793 Mean Corpuscular Hemoglobin Concent April 09, 2020 3:40pm 33.6 g/dl [address] [place] [address] LABORATORY, [address] [place] [address] 62824 Mean Corpuscular Hemoglobin Concent March 09, 2020 11:15am 33.2 g/dl [address] [place] [address] LABORATORY, [address] [place] [address] 02980 Mean Corpuscular Hemoglobin Concent January 10, 2020 8:43pm 33.4 g/dl [facility], [address] [place] [address] 25838 Mean Corpuscular Hemoglobin Concent December 30, 2019 4:40am 35.0 g/dl [address] [place] [address] LABORATORY, [address] [place] [address] 65346 Mean Corpuscular Hemoglobin Concent December 24, 2019 8:45am 33.9 g/dl [address] [place] [address] LABORATORY, [address] [place] [address] 50887 Mean Corpuscular Hemoglobin Concent December 13, 2019 2:05pm 34.3 g/dl [address] [place] [address] LABORATORY, [address] [place] [address] 95229 Mean Corpuscular Hemoglobin Concent December 10, 2019 11:04am 33.6 g/dl [address] [place] [address] LABORATORY, [address] [place] [address] 07460 Mean Corpuscular Hemoglobin Concent November 14, 2019 1:15pm 35.9 g/dl [address] [place] [address] LABORATORY, [address] [place] [address] 10715 Mean Corpuscular Hemoglobin Concent October 30, 2019 1:59pm 34.8 g/dl [address] [place] [address] LABORATORY, [address] [place] [address] 37603 Mean Corpuscular Hemoglobin Concent July 24, 2019 10:08am 34.0 g/dl [address] [place] [address] LABORATORY, [address] [place] [address] 36355 Mean Corpuscular Hemoglobin Concent June 10, 2019 12:24pm 35.8 g/dl 33-37 [facility], [address] [place] [address] 93186 Red Cell Distribution Width April 09, 2020 3:40pm 12 % 11-15 [facility], [address] [place] [address] 20050 Red Cell Distribution Width March 09, 2020 11:15am 12 % 11-15 [facility], [address] [place] [address] 33329 Red Cell Distribution Width December 202019 8:43pm 13 % 11-15 [facility], [address] [place] [address] 19930 Red Cell Distribution Width December 192019 4:40am 12 % 11-15 [facility], [address] [place] [address] 16114 Red Cell Distribution Width December 232019 8:45am 13 % 11-15 [facility], [address] [place] [address] 46472 Red Cell Distribution Width November h2019 2:05pm 13 % 11-15 [facility], [address] [place] [address] 24338 Red Cell Distribution Width November 11:04am 12 % 11-15 [facility], [address] [place] [address] 54205 Red Cell Distribution Width October h2019 1:15pm 12 % 11-15 [facility], [address] [place] [address] 14353 Red Cell Distribution Width October h2019 1:59pm 12 % 11-15 [facility], [address] [place] [address] 51573 Red Cell Distribution Width July 10:08am 12 % 11-15 [facility], [address] [place] [address] 79895 Red Cell Distribution Width June 10, 2019 12:24pm 12 % 11-15 [facility], [address] [place] [address] 66504 Platelet Count April 09, 2020 3:40pm 208 10e3/ul 130-472 [facility], [address] [place] [address] 49928 Platelet Count March 09, 2020 11:15am 231 10e3/ul 130-472 [facility], [address] [place] [address] 35471 Platelet Count January 10, 2020 8:43pm 178 10e3/ul 130-472 [facility], [address] [place] [address] 68645 Platelet Count December 30, 2019 4:40am 148 10e3/ul 130-472 [facility], [address] [place] [address] 09058 Platelet Count December 24, 2019 8:45am 223 10e3/ul 130-472 [facility], [address] [place] [address] 93543 Platelet Count December 13, 2019 2:05pm 175 10e3/ul 130-472 [facility], [address] [place] [address] 16676 Platelet Count December 10, 2019 11:04am 180 10e3/ul 130-472 [facility], [address] [place] [address] 21586 Platelet Count November 14, 2019 1:15pm 191 10e3/ul 130-472 [facility], [address] [place] [address] 87415 Platelet Count October 30, 2019 1:59pm 226 10e3/ul 130-472 [facility], [address] [place] [address] 65984 Platelet Count July 24, 2019 10:08am 188 10e3/ul 130-472 [facility], [address] [place] [address] 31233 Platelet Count June 10, 2019 12:24pm 256 10e3/ul 130-472 [facility], [address] [place] [address] 49720 Mean Platelet Volume April 09, 2020 3:40pm 10.0 fl 9.1-13.1 [facility], [address] [place] [address] Mean Platelet Volume March 09 11:15am 11.1 fl 9.1-13.1 [facility], [address] [place] [address] Mean Platelet Volume January 09 8:43pm 10.3 fl 9.1-13.1 [facility], [address] [place] [address] Mean Platelet Volume December 29 4:40am 11.0 fl 9.1-13.1 [facility], [address] [place] [address] Mean Platelet Volume December 23 0 8:45am 10.8 fl 9.1-13.1 [facility], [address] [place] [address] Mean Platelet Volume December 13, 2019 2:05p m 10.3 fl 9.1-13.1 [facility], [address] [place] [address] Mean Platelet Volume December 10, 2019 11:04am 10.9 fl 9.1-13.1 [facility], [address] [place] [address] 66645 Mean Platelet Volume November 14, 2019 1:15p m 10.5 fl 9.1-13.1 [facility], [address] [place] [address] 72723 Mean Platelet Volume October 30, 2019 1:59p m 11.2 fl 9.1-13.1 [facility], [address] [place] [address] 24332 Mean Platelet Volume July 24, 2019 10:08am 11.2 fl 9.1-13.1 [facility], [address] [place] [address] 35005 Mean Platelet Volume June 10, 020 12:24pm 10.3 fl 9.1-13.1 [facility], [address] [place] [address] 66735 Neutrophils (%) (Auto) March 3:40pm 71.4 % [address] [place] [address] LABORATORY, [address] [place] [address] 64188 Neutrophils (%) (Auto) March 09, 2020 11:15am 60.6 % [address] [facility], [address] [place] [address] 61814 Neutrophils (%) (Auto) January 10, 2020 8:43pm 56.9 % [address] [facility], [address] [place] [address] 96718 Neutrophils (%) (Auto) December 30, 2019 4:40am 40.2 % [address] [place] [address] LABORATORY, [address] [place] [address] 44546 Neutrophils (%) (Auto) December 23 020 8:45am 65.4 % [address] [facility], [address] [place] [address] 50215 Neutrophils (%) (Auto) December 12 2:05pm 56.7 % [address] [facility], [address] [place] [address] 44333 Neutrophils (%) (Auto) December 09 11:04am 60.2 % [address] [place] [address] LABORATORY, [address] [place] [address] 40097 Neutrophils (%) (Auto) November 13 1:15pm 58.1 % [address] [place] [address] LABORATORY, [address] [place] [address] 24358 Neutrophils (%) (Auto) October 29 1:59pm 70.9 % [address] [facility], [address] [place] [address] 35290 Neutrophils (%) (Auto) July 23 10:08am 59.3 % [address] [place] [address] LABORATORY, [address] [place] [address] 79854 Neutrophils (%) (Auto) June 10, 2019 12:24pm 81.9 % [address] [place] [address] LABORATORY, [address] [place] [address] 02235 Absolute Neutrophil April 09 020 3:40pm 6.8 # 1.7-7.6 [facility], [address] [place] [address] 81413 Absolute Neutrophil March 09 11:15am 3.4 # 1.7-7.6 [facility], [address] [place] [address] 25472 Absolute Neutrophil January 09 0 8:43pm 3.2 # 1.7-7.6 [facility], [address] [place] [address] 22085 Absolute Neutrophil December 29 0 4:40am 2.1 # 1.7-7.6 [facility], [address] [place] [address] 95570 Absolute Neutrophil December 24, 2019 8:45a m 4.3 # 1.7-7.6 [facility], [address] [place] [address] 16951 Absolute Neutrophil December 13, 2019 2:05pm 2.8 # 1.7-7.6 [facility], [address] [place] [address] 47637 Absolute Neutrophil December 10, 2019 11:04a m 3.4 # 1.7-7.6 [facility], [address] [place] [address] 77906 Absolute Neutrophil November 14, 2019 1:15pm 2.9 # 1.7-7.6 [facility], [address] [place] [address] 30227 Absolute Neutrophil October 30, 2019 1:59pm 5.6 # 1.7-7.6 [facility], [address] [place] [address] 70574 Absolute Neutrophil July 24, 2019 10:08a m 3.3 # 1.7-7.6 [facility], [address] [place] [address] 06545 Absolute Neutrophil June 10 12:24pm 7.4 # 1.7-7.6 [facility], [address] [place] [address] 29271 Lymphocytes (%) (Auto) March 3:40pm 17.5 % 14-46 [facility], [address] [place] [address] 75458 Lymphocytes (%) (Auto) March 09, 2020 11:15am 28.4 % 1446 [facility], [address] [place] [address] 07757 Lymphocytes (%) (Auto) January 10, 2020 8:43pm 28.9 % 14-46 [facility], [address] [place] [address] Lymphocytes (%) (Auto) December 30, 2019 4:40am 46.5 % 1446 [facility], [address] [place] [address] 02181 Lymphocytes (%) (Auto) December 23, 020 8:45am 21.7 % 1446 [facility], [address] [place] [address] 18106 Lymphocytes (%) (Auto) December 12 2:05pm 31.0 % 14-46 [facility], [address] [place] [address] 31394 Lymphocytes (%) (Auto) December 09 11:04am 29.1 % 14-46 [facility], [address] [place] [address] 50969 Lymphocytes (%) (Auto) November 13 1:15pm 32.0 % 14-46 [facility], [address] [place] [address] 52617 Lymphocytes (%) (Auto) October 29 1:59pm 20.4 % 14-46 [facility], [address] [place] [address] 57433 Lymphocytes (%) (Auto) July 23 10:08am 27.2 % 14-46 [facility], [address] [place] [address] 75415 Lymphocytes (%) (Auto) June 10, 2019 12:24pm 11.7 % 14-46 [facility], [address] [place] [address] 66174 Lymphocytes # (Auto) April 09, 2020 3:40pm 1.7 # 0.6-4.6 [facility], [address] [place] [address] 41867 Lymphocytes # (Auto) March 09 020 11:15am 1.6 # 0.6-4.6 [facility], [address] [place] [address] 41210 Lymphocytes # (Auto) January 09 8:43pm 1.7 # 0.6-4.6 [facility], [address] [place] [address] 53356 Lymphocytes # (Auto) December 29 4:40am 2.4 # 0.6-4.6 [facility], [address] [place] [address] 57012 Lymphocytes # (Auto) December 23 0 8:45am 1.4 # 0.6-4.6 [facility], [address] [place] [address] 11219 Lymphocytes # (Auto) December 13, 2019 2:05p m 1.5 # 0.6-4.6 [facility], [address] [place] [address] 64355 Lymphocytes # (Auto) December 10, 2019 11:04am 1.7 # 0.6-4.6 [facility], [address] [place] [address] 37651 Lymphocytes # (Auto) November 14, 2019 1:15p m 1.6 # 0.6-4.6 [facility], [address] [place] [address] 67983 Lymphocytes # (Auto) October 30, 2019 1:59p m 1.6 # 0.6-4.6 [facility], [address] [place] [address] 94045 Lymphocytes # (Auto) July 24, 2019 10:08am 1.5 # 0.6-4.6 [facility], [address] [place] [address] 06126 Lymphocytes # (Auto) June 10, 020 12:24pm 1.1 # 0.6-4.6 [facility], [address] [place] [address] 83809 Monocytes (%) (Auto) April 09, 2020 3:40pm 9.4 % 4-12 [facility], [address] [place] [address] 77054 Monocytes (%) (Auto) March 09, 020 11:15am 8.5 % 4-12 [facility], [address] [place] [address] 18485 Monocytes (%) (Auto) January 09 8:43pm 11.9 % 4-12 [facility], [address] [place] [address] 15752 Monocytes (%) (Auto) December 29 4:40am 11.1 % 4-12 [facility], [address] [place] [address] 45782 Monocytes (%) (Auto) December 23 8:45am 10.4 % 4-12 [facility], [address] [place] [address] 44194 Monocytes (%) (Auto) December 13, 2019 2:05p m 10.3 % 4-12 [facility], [address] [place] [address] 84344 Monocytes (%) (Auto) December 10, 2019 11:04am 8.7 % 4-12 [facility], [address] [place] [address] 23310 Monocytes (%) (Auto) November 14, 2019 1:15p m 8.1 % 4-12 [facility], [address] [place] [address] 93892 Monocytes (%) (Auto) October 30, 2019 1:59p m 7.0 % 4-12 [facility], [address] [place] [address] 23593 Monocytes (%) (Auto) July 24, 2019 10:08am 11.3 % 4-12 [facility], [address] [place] [address] 38671 Monocytes (%) (Auto) June 10 020 12:24pm 5.8 % 4-12 [facility], [address] [place] [address] 31007 Monocytes # April 09, 2020 3:40pm 0.9 # 0.2-1.2 [facility], [address] [place] [address] 18640 Monocytes # March 09, 2020 11:15am 0.5 # 0.2-1.2 [facility], [address] [place] [address] 74537 Monocytes # January 10, 2020 8:43pm 0.7 # 0.2-1.2 [facility], [address] [place] [address] 16169 Monocytes # December 30, 2019 4:40am 0.6 # 0.2-1.2 [facility], [address] [place] [address] 53066 Monocytes # December 24, 2019 8:45am 0.7 # 0.2-1.2 [facility], [address] [place] [address] 33287 Monocytes # December 13, 2019 2:05pm 0.5 # 0.2-1.2 [facility], [address] [place] [address] 56050 Monocytes # December 10, 2019 11:04am 0.5 # 0.2-1.2 [facility], [address] [place] [address] 28784 Monocytes # November 14, 2019 1:15pm 0.4 # 0.2-1.2 [facility], [address] [place] [address] 30722 Monocytes # October 30, 2019 1:59pm 0.6 # 0.2-1.2 [facility], [address] [place] [address] 51150 Monocytes # July 24, 2019 10:08am 0.6 # 0.2-1.2 [facility], [address] [place] [address] 10975 Monocytes # June 10, 2019 12:24pm 0.5 # 0.2-1.2 [facility], [address] [place] [address] 24166 Eosinophils (%) (Auto) March 3:40pm 1.2 % 0-7 [facility], [address] [place] [address] 49297 Eosinophils (%) (Auto) March 09, 2020 11:15am 1.6 % 0-7 [facility], [address] [place] [address] 77479 Eosinophils (%) (Auto) January 10, 2020 8:43pm 1.4 % 0-7 [facility], [address] [place] [address] 85767 Eosinophils (%) (Auto) December 30, 2019 4:40am 1.4 % 0-7 [facility], [address] [place] [address] 05764 Eosinophils (%) (Auto) December 23 8:45am 1.4 % 0-7 [facility], [address] [place] [address] 17476 Eosinophils (%) (Auto) December 12 2:05pm 1.2 % 0-7 [facility], [address] [place] [address] 39701 Eosinophils (%) (Auto) December 09 11:04am 1.2 % 0-7 [facility], [address] [place] [address] 14822 Eosinophils (%) (Auto) November 13 1:15pm 1.0 % 0-7 [facility], [address] [place] [address] 85369 Eosinophils (%) (Auto) October 29 1:59pm 0.9 % 0-7 [facility], [address] [place] [address] 02072 Eosinophils (%) (Auto) July 23 10:08am 1.3 % 0-7 [facility], [address] [place] [address] 42916 Eosinophils (%) (Auto) June 10, 2019 12:24pm 0.1 % 0-7 [facility], [address] [place] [address] 81749 Absolute Eosinophils (CBC) April 09, 2020 3:40pm 0.1 # 0.0-0.5 [facility], [address] [place] [address] Absolute Eosinophils (CBC) February 192019 11:15am 0.1 # 0.0-0.5 [facility], [address] [place] [address] Absolute Eosinophils (CBC) January 092019 8:43pm 0.1 # 0.0-0.5 [facility], [address] [place] [address] 85099 Absolute Eosinophils (CBC) December 292019 4:40am 0.1 # 0.0-0.5 [facility], [address] [place] [address] 29786 Absolute Eosinophils (CBC) December 8:45am 0.1 # 0.0-0.5 [facility], [address] [place] [address] 85576 Absolute Eosinophils (CBC) November 2:05pm 0.1 # 0.0-0.5 [facility], [address] [place] [address] 81432 Absolute Eosinophils (CBC) November 11:04am 0.1 # 0.0-0.5 [facility], [address] [place] [address] 47247 Absolute Eosinophils (CBC) October 1:15pm 0.1 # 0.0-0.5 [facility], [address] [place] [address] Absolute Eosinophils (CBC) October 1:59pm 0.1 # 0.0-0.5 [facility], [address] [place] [address] [phone] Absolute Eosinophils (CBC) July 10:08am 0.1 # 0.0-0.5 [facility], [address] [place] [address] [phone] Absolute Eosinophils (CBC) May 222019 12:24pm 0.0 # 0.0-0.5 [facility], [address] [place] [address] [phone] Basophils (%) (Auto) April 09, 2020 3:40pm 0.3 % 0.4-1.3 [facility], [address] [place] [address] [phone] Basophils (%) (Auto) March 09 020 11:15am 0.7 % 0.4-1.3 [facility], [address] [place] [address] [phone] Basophils (%) (Auto) January 09 8:43pm 0.5 % 0.4-1.3 [facility], [address] [place] [address] [phone] Basophils (%) (Auto) December 29 4:40am 0.6 % 0.4-1.3 [facility], [address] [place] [address] [phone] Basophils (%) (Auto) December 23 0 8:45am 0.8 % 0.4-1.3 [facility], [address] [place] [address] [phone] Basophils (%) (Auto) December 13, 2019 2:05p m 0.6 % 0.4-1.3 [facility], [address] [place] [address] [phone] Basophils (%) (Auto) December 10, 2019 11:04am 0.5 % 0.4-1.3 [facility], [address] [place] [address] [phone] Basophils (%) (Auto) November 14, 2019 1:15p m 0.6 % 0.4-1.3 [facility], [address] [place] [address] [phone] Basophils (%) (Auto) October 30, 2019 1:59p m 0.5 % 0.4-1.3 [facility], [address] [place] [address] [phone] Basophils (%) (Auto) July 24, 2019 10:08am 0.7 % 0.4-1.3 [facility], [address] [place] [address] [phone] Basophils (%) (Auto) June 10 020 12:24pm 0.3 % 0.4-1.3 [facility], [address] [place] [address] [phone] Absolute Basophils (CBC) April 092019 3:40pm 0.0 # 0.0-0.2 [facility], [address] [place] [address] Absolute Basophils (CBC) February 11:15am 0.0 # 0.0-0.2 [facility], [address] [place] [address] Absolute Basophils (CBC) December 8:43pm 0.0 # 0.0-0.2 [facility], [address] [place] [address] Absolute Basophils (CBC) December 4:40am 0.0 # 0.0-0.2 [facility], [address] [place] [address] Absolute Basophils (CBC) December 24, 2019 8:45am 0.1 # 0.0-0.2 [facility], [address] [place] [address] Absolute Basophils (CBC) December 13, 2019 2:05pm 0.0 # 0.0-0.2 [facility], [address] [place] [address] Absolute Basophils (CBC) December 10, 2019 11:04am 0.0 # 0.0-0.2 [facility], [address] [place] [address] Absolute Basophils (CBC) November 14, 2019 1:15pm 0.0 # 0.0-0.2 [facility], [address] [place] [address] Absolute Basophils (CBC) October 30, 2019 1:59pm 0.0 # 0.0-0.2 [facility], [address] [place] [address] Absolute Basophils (CBC) July 24, 2019 10:08am 0.0 # 0.0-0.2 [facility], [address] [place] [address] Absolute Basophils (CBC) May 12:24pm 0.0 # 0.0-0.2 [facility], [address] [place] [address] 60577 Immature Granulocyte % (Auto) Novemb 2019 3:40pm 0.2 % 0-2 [facility], [address] [place] [address] 66732 Immature Granulocyte % (Auto) 2019 11:15am 0.2 % 0-2 [facility], [address] [place] [address] 77875 Immature Granulocyte % (Auto) January 10, 2020 8:43pm 0.4 % 0-2 [facility], [address] [place] [address] 40215 Immature Granulocyte % (Auto) December 30, 2019 4:40am 0.2 % 0-2 [facility], [address] [place] [address] 85514 Immature Granulocyte % (Auto) December 24, 2019 8:45am 0.3 % 0-2 [facility], [address] [place] [address] 72119 Immature Granulocyte % (Auto) November 192019 2:05pm 0.2 % 0-2 [facility], [address] [place] [address] 21006 Immature Granulocyte % (Auto) November 192019 11:04am 0.3 % 0-2 [facility], [address] [place] [address] 17084 Immature Granulocyte % (Auto) October 202019 1:15pm 0.2 % 0-2 [facility], [address] [place] [address] 20160 Immature Granulocyte % (Auto) October 192019 1:59pm 0.3 % 0-2 [facility], [address] [place] [address] 51203 Immature Granulocyte % (Auto) July 24, 2019 10:08am 0.2 % 0-2 [facility], [address] [place] [address] 45758 Immature Granulocyte % (Auto) 2019 12:24pm 0.2 % 0-2 [facility], [address] [place] [address] 00967 Absolute Immature Granulocyte (auto April 09, 2020 3:40pm 0.0 # 0-0.1 [facility], [address] [place] [address] 78126 Absolute Immature Granulocyte (auto March 09, 2020 11:15am 0.0 # 0-0.1 [facility], [address] [place] [address] 49974 Absolute Immature Granulocyte (auto January 10, 2020 8:43pm 0.0 # 0-0.1 [facility], [address] [place] [address] 58315 Absolute Immature Granulocyte (auto December 30, 2019 4:40am 0.0 # 0-0.1 [facility], [address] [place] [address] 01553 Absolute Immature Granulocyte (auto December 24, 2019 8:45am 0.0 # 0-0.1 [facility], [address] [place], [place] [id number] Absolute Immature Granulocyte (auto December 13, 2019 2:05pm 0.0 # 0-0.1 [facility], [address] [place] [address] Absolute Immature Granulocyte (auto December 10, 2019 11:04am 0.0 # 0-0.1 [facility], [address] [place], [place] [id number] Absolute Immature Granulocyte (auto November 14, 2019 1:15pm 0.0 # 0-0.1 [facility], [address] [place] [address] Absolute Immature Granulocyte (auto October 30, 2019 1:59pm 0.0 # 0-0.1 [facility], [address] [place] [address] Absolute Immature Granulocyte (auto July 24, 2019 10:08am 0.0 # 0-0.1 [facility], [address] [place], [place] [id number] Absolute Immature Granulocyte (auto June 10, 2019 12:24pm 0.0 # 0-0.1 [facility], [address] [place], [place] [id number] Add Manual Differential March 3:40pm No [facility], [address] [place], [place] [id number] Add Manual Differential February 11:15am No [facility], [address] [place], [place] [id number] Add Manual Differential January 10, 2020 8:43pm No [facility], [address] [place], [place] [id number] Add Manual Differential December 30, 2019 4:40am No [facility], [address] [place], [place] [id number] Add Manual Differential December 24, 2019 8:45am No [facility], [address] [place] [address] 40866 Add Manual Differential December 12, 020 2:05pm No [facility], [address] [place], [place] [id number] Add Manual Differential December 09, 11:04am No [facility], [address] [place], [place] [id number] Add Manual Differential November 13 020 1:15pm No [facility], [address] [place] [address] 26797 Add Manual Differential October 29 1:59pm No [facility], [address] [place] [address] 35994 Add Manual Differential July 23 10:08am No [facility], [address] [place] [address] 00767 Add Manual Differential May 12:24pm No [facility], [address] [place] [address] 07187 D-Dimer April 09, 2020 3:40pm Less than 0.19 mg/L 0.0-0.50 PLEASE NOTE: THIS TEST WAS PERFORMED USING A PARTICLE-ENHANCED, IMMUNOTURBIDIMETRIC ASSAY AND HAS A SINGLE,CLINICALLY DERIVED CUTOFF OF 0.50 MG/L. [facility], [address] [place] [address] Urine Color March 09, 2020 11:18am Yellow [facility], [address] [place] [address] 50370 Urine Color December 13, 2019 2:00pm Yellow [facility], [address] [place] [address] Urine Color December 10, 2019 11:16am Yellow [facility], [address] [place] [address] Urine Color November 14, 2019 1:30pm Yellow [facility], [address] [place] [address] 41174 Urine Color June 10, 2019 12:20pm Yellow [facility], [address] [place] [address] 29234 Urine Color December 28, 2019 10:30am Yellow [facility], [address] [place] [address] 28307 Urine Appearance March 09, 2020 11:18a m Clear CLEAR [facility], [address] [place] [address] Urine Appearance December 28, 2019 10:30am Clear CLEAR [facility], [address] [place] [address] 15364 Urine Appearance December 13, 2019 2:00pm Cloudy CLEAR [facility], [address] [place] [address] Urine Appearance December 10, 2019 11:16am Cloudy CLEAR [facility], [address] [place] [address] Urine Appearance November 14, 2019 1:30pm Clear CLEAR [facility], [address] [place] [address] 22602 Urine Appearance June 10, 2019 12:20p m Clear CLEAR [facility], [address] [place] [address] 46854 Urine pH March 09, 2020 11:18am 7.5 [facility], [address] [place] [address] 69189 Urine pH December 28, 2019 10:30am 6.0 [facility], [address] [place] [address] Urine pH December 13, 2019 2:00pm 6.0 [facility], [address] [place] [address] 69763 Urine pH December 10, 2019 11:16am 5.5 [facility], [address] [place] [address] Urine pH November 14, 2019 1:30pm 5.0 [facility], [address] [place] [address] 36489 Urine pH June 10, 2019 12:20pm 6.5 [facility], [address] [place] [address] 30182 Urine Specific [place] March 09, 2020 11:18am 1.004 [facility], [address] [place] [address] Urine Specific [place] December 27 10:30am 1.010 [facility], [address] [place] [address] Urine Specific [place] December 12 2:00pm 1.004 [facility], [address] [place] [address] Urine Specific [place] December 09 11:16am 1.024 [facility], [address] [place] [address] Urine Specific [place] November 13 1:30pm 1.020 [facility], [address] [place] [address] 61535 Urine Specific [place] June 10, 2019 12:20pm 1.011 [facility], [address] [place] [address] 79134 Urine Leukocyte Esterase February 11:18am Negative NEGATIVE [facility], [address] [place] [address] 45026 Urine Leukocyte Esterase December 13, 2019 2:00pm Negative NEGATIVE [facility], [address] [place] [address] 95842 Urine Leukocyte Esterase December 10, 2019 11:16am Trace NEGATIVE [facility], [address] [place] [address] Urine Leukocyte Esterase November 14, 2019 1:30pm Negative NEGATIVE [facility], [address] [place] [address] 27727 Urine Leukocyte Esterase May 12:20pm Trace NEGATIVE [facility], [address] [place] [address] Urine Leukocyte Esterase December 28, 2019 10:30am Negative NEGATIVE [facility], [address] [place] [address] 28247 Urine Nitrite March 09, 2020 11:18am Negative NEGATIVE [facility], [address] [place] [address] 59541 Urine Nitrite December 13, 2019 2:00pm Negative NEGATIVE [facility], [address] [place] [address] 93325 Urine Nitrite December 10, 2019 11:16am Negative NEGATIVE [facility], [address] [place] [address] 90917 Urine Nitrite November 14, 2019 1:30pm Negative NEGATIVE [facility], [address] [place] [address] 68379 Urine Nitrite June 10, 2019 12:20pm Negative NEGATIVE [facility], [address] [place] [address] 38874 Urine Nitrate December 28, 2019 10:30am Negative NEGATIVE [facility], [address] [place] [address] 98790 Urine Protein March 09, 2020 11:18am Negative NEGATIVE [facility], [address] [place] [address] 87697 Urine Protein December 28, 2019 10:30am Negative NEGATIVE [facility], [address] [place] [address] 54518 Urine Protein December 13, 2019 2:00pm Negative NEGATIVE [facility], [address] [place] [address] 20394 Urine Protein December 10, 2019 11:16am Negative NEGATIVE [facility], [address] [place] [address] 95453 Urine Protein November 14, 2019 1:30pm Negative NEGATIVE [facility], [address] [place] [address] 69242 Urine Protein June 10, 2019 12:20pm Negative NEGATIVE [facility], [address] [place] [address] 09452 Urine Glucose March 09, 2020 11:18am Negative NEGATIVE [facility], [address] [place] [address] 96657 Urine Glucose December 28, 2019 10:30am Negative NEGATIVE [facility], [address] [place] [address] 37002 Urine Glucose December 13, 2019 2:00pm Negative NEGATIVE [facility], [address] [place] [address] 86254 Urine Glucose December 10, 2019 11:16am Negative NEGATIVE [facility], [address] [place] [address] 76935 Urine Glucose November 14, 2019 1:30pm Negative NEGATIVE [facility], [address] [place] [address] 85450 Urine Glucose June 10, 2019 12:20pm Negative NEGATIVE [facility], [address] [place] [address] 80736 Urine Ketones March 09, 2020 11:18am Negative NEGATIVE [facility], [address] [place] [address] Urine Ketones December 28, 2019 10:30am Negative NEGATIVE [facility], [address] [place] [address] 20904 Urine Ketones December 13, 2019 2:00pm Negative NEGATIVE [facility], [address] [place] [address] Urine Ketones December 10, 2019 11:16am Negative NEGATIVE [facility], [address] [place] [address] 04982 Urine Ketones November 14, 2019 1:30pm 15 mg/dl NEGATIVE [facility], [address] [place] [address] Urine Ketones June 10, 2019 12:20pm 40 mg/dl NEGATIVE [facility], [address] [place] [address] Urine Urobilinogen March 09 0 11:18am 0.2 eu/dl [facility], [address] [place] [address] Urine Urobilinogen December 28, 2019 10:30a m 1 eu/dl [facility], [address] [place] [address] Urine Urobilinogen December 13, 2019 2:00pm 0.2 eu/dl [facility], [address] [place] [address] Urine Urobilinogen December 10, 2019 11:16am 1 eu/dl [facility], [address] [place] [address] Urine Urobilinogen November 14, 2019 1:30pm 1 eu/dl [facility], [address] [place] [address] Urine Urobilinogen June 10 0 12:20pm 0.2 eu/dl [facility], [address] [place] [address] 77168 Urine Bilirubin March 09, 2020 11:18am Negative NEGATIVE [facility], [address] [place] [address] 25897 Urine Bilirubin December 28, 2019 10:30am Negative NEGATIVE [facility], [address] [place] [address] 49022 Urine Bilirubin December 13, 2019 2:00pm Negative NEGATIVE [facility], [address] [place] [address] Urine Bilirubin December 10, 2019 11:16am Negative NEGATIVE [facility], [address] [place] [address] 27381 Urine Bilirubin November 14, 2019 1:30pm Negative NEGATIVE [facility], [address] [place] [address] 93872 Urine Bilirubin June 10, 2019 12:20pm Negative NEGATIVE [facility], [address] [place] [address] 89647 Urine Blood March 09, 2020 11:18am Negative NEGATIVE [facility], [address] [place] [address] 21457 Urine Blood December 13, 2019 2:00pm Negative NEGATIVE [facility], [address] [place] [address] 60503 Urine Blood December 10, 2019 11:16am Negative NEGATIVE [facility], [address] [place] [address] 45214 Urine Blood November 14, 2019 1:30pm Negative NEGATIVE [facility], [address] [place] [address] 77956 Urine Blood June 10, 2019 12:20pm Negative NEGATIVE [facility], [address] [place] [address] 27485 Urine Blood December 28, 2019 10:30am Negative NEGATIVE [facility], [address] [place] [address] 13598 Microscopic Urinalysis Comment 2019 11:18am No [facility], [address] [place] [address] 91981 Microscopic Urinalysis Comment December 13, 2019 2:00pm No [facility], [address] [place] [address] 85685 Microscopic Urinalysis Comment December 10, 2019 11:16am Microscopic added [facility], [address] [place] [address] 47837 Microscopic Urinalysis Comment November 14, 2019 1:30pm No [facility], [address] [place] [address] 86052 Microscopic Urinalysis Comment 2019 12:20pm Microscopic added [facility], [address] [place] [address] 12936 Add Urine Microanalysis December 28, 2019 10:30am No [facility], [address] [place] [address] 20139 Urine RBC December 10, 2019 11:16am 0-1 /hpf [facility], [address] [place] [address] 87804 Urine WBC December 10, 2019 11:16am 1-2 /hpf [facility], [address] [place] [address] 30148 Urine WBC June 10, 2019 12:20pm 1-2 /hpf [facility], [address] [place] [address] 33080 Urine Squamous Epithelial Cells December 10, 2019 11:16am Few /hpf [facility], [address] [place] [address] 50636 Urine Squamous Epithelial Cells Petros carmen 2019 12:20pm Few /hpf [facility], [address] [place] [address] 52991 Urine Calcium Oxalate Crystals December 10, 2019 11:16am Few [facility], [address] [place] [address] Urine Bacteria December 10, 2019 11:16am Moderate amount NEGATIVE [facility], [address] [place] [address] 95754 Urine Bacteria June 10, 2019 12:20pm Small amount NEGATIVE [facility], [address] [place] [address] 37186 Urine Mucus December 10, 2019 11:16am Small amount [facility], [address] [place] [address] 93466 Blood Urea Nitrogen April 09 020 3:40pm 23 mg/dL 02-10 [facility], [address] [place] [address] 26849 Blood Urea Nitrogen March 09 11:15am 8 mg/dL 02-10 [facility], [address] [place] [address] Blood Urea Nitrogen January 09 0 8:43pm 6 mg/dL 02-10 [facility], [address] [place] [address] Blood Urea Nitrogen December 29 0 4:40am 4 mg/dL 02-10 [facility], [address] [place] [address] Blood Urea Nitrogen December 24, 2019 8:45a m 7 mg/dL 02-10 [facility], [address] [place] [address] Blood Urea Nitrogen December 13, 2019 2:05pm 6 mg/dL 02-10 [facility], [address] [place] [address] Blood Urea Nitrogen December 10, 2019 11:04a m 7 mg/dL 02-10 [facility], [address] [place] [address] Blood Urea Nitrogen November 14, 2019 1:15pm 9 mg/dL 02-10 [facility], [address] [place] [address] Blood Urea Nitrogen October 30, 2019 1:59pm 16 mg/dL 02-10 [facility], [address] [place] [address] Blood Urea Nitrogen July 24, 2019 10:08a m 14 mg/dL 02-10 [facility], [address] [place] [address] 87430 Blood Urea Nitrogen June 30 2:10pm 7 mg/dL 02-10 [facility], [address] [place] [address] 56787 Blood Urea Nitrogen June 10 12:24pm 8 mg/dL 02-10 [facility], [address] [place] [address] 69556 Sodium Level April 09, 2020 3:40pm 140 mmol/L 132-146 [facility], [address] [place] [address] 93436 Sodium Level March 09, 2020 11:15am 142 mmol/L 132-146 [facility], [address] [place] [address] 97142 Sodium Level January 10, 2020 8:43pm 144 mmol/L 132-146 [facility], [address] [place] [address] 13468 Sodium Level December 30, 2019 4:40am 141 mmol/L 132-146 [facility], [address] [place] [address] 45221 Sodium Level December 24, 2019 8:45am 138 mmol/L 132-146 [facility], [address] [place] [address] 51096 Sodium Level December 13, 2019 2:05pm 140 mmol/L 132-146 [facility], [address] [place] [address] 44032 Sodium Level December 10, 2019 11:04am 142 mmol/L 132-146 [facility], [address] [place] [address] 80595 Sodium Level November 14, 2019 1:15pm 143 mmol/L 132-146 [facility], [address] [place] [address] 12028 Sodium Level October 30, 2019 1:59pm 136 mmol/L 132-146 [facility], [address] [place] [address] 05821 Sodium Level July 24, 2019 10:08am 137 mmol/L 132-146 [facility], [address] [place] [address] 81454 Sodium Level June 30, 2019 2:10pm 141 mmol/L 132-146 [facility], [address] [place] [address] 32022 Sodium Level June 10, 2019 12:24pm 139 mmol/L 132-146 [facility], [address] [place] [address] 87850 Potassium Level April 09, 2020 3:40pm 3.9 mmol/L 3.5-5.5 [facility], [address] [place] [address] 31162 Potassium Level March 09, 2020 11:15am 3.8 mmol/L 3.5-5.5 [facility], [address] [place] [address] 24096 Potassium Level January 10, 2020 8:43pm 3.4 mmol/L 3.5-5.5 [facility], [address] [place] [address] 28439 Potassium Level December 30, 2019 4:40am 3.4 mmol/L 3.5-5.5 [facility], [address] [place] [address] 02879 Potassium Level December 24, 2019 8:45am 3.9 mmol/L 3.5-5.5 [facility], [address] [place] [address] 50138 Potassium Level December 13, 2019 2:05pm 3.9 mmol/L 3.5-5.5 [facility], [address] [place] [address] 75010 Potassium Level December 10, 2019 11:04am 3.3 mmol/L 3.5-5.5 [facility], [address] [place] [address] 76533 Potassium Level November 14, 2019 1:15pm 3.4 mmol/L 3.5-5.5 [facility], [address] [place] [address] 18610 Potassium Level October 30, 2019 1:59pm 4.4 mmol/L 3.5-5.5 [facility], [address] [place] [address] 91002 Potassium Level July 24, 2019 10:08am 4.0 mmol/L 3.5-5.5 [facility], [address] [place] [address] 06842 Potassium Level June 30, 2019 2:10pm 3.7 mmol/L 3.5-5.5 [facility], [address] [place] [address] 29247 Potassium Level June 10, 2019 12:24pm 3.4 mmol/L 3.5-5.5 [facility], [address] [place] [address] 38422 Chloride Level April 09, 2020 3:40pm 110 mmol/l 99-109 [facility], [address] [place] [address] 45426 Chloride Level March 09, 2020 11:15am 108 mmol/l 99-109 [facility], [address] [place] [address] 75822 Chloride Level January 10, 2020 8:43pm 112 mmol/l 99-109 [facility], [address] [place] [address] 43185 Chloride Level December 30, 2019 4:40am 110 mmol/l 99-109 [facility], [address] [place] [address] [id number] Chloride Level December 24, 2019 8:45am 106 mmol/l 99-109 [facility], [address] [place] [address] [id number] Chloride Level December 13, 2019 2:05pm 107 mmol/l 99-109 [facility], [address] [place] [address] [id number] Chloride Level December 10, 2019 11:04am 109 mmol/l 99-109 [facility], [address] [place] [address] [id number] Chloride Level November 14, 2019 1:15pm 108 mmol/l 99-109 [facility], [address] [place] [address] [id number] Chloride Level October 30, 2019 1:59pm 103 mmol/l 99-109 [facility], [address] [place] [address] [id number] Chloride Level July 24, 2019 10:08am 104 mmol/l 99-109 [facility], [address] [place] [address] [id number] Chloride Level June 30, 2019 2:10pm 109 mmol/l 99-109 [facility], [address] [place] [address] [id number] Chloride Level June 10, 2019 12:24pm 107 mmol/l 99-109 [facility], [address] [place] [address] [id number] Carbon Dioxide Level April 09, 2020 3:40pm 25 mmol/l -31 [facility], [address] [place] [address] [id number] Carbon Dioxide Level March 09 020 11:15am 29 mmol/l -31 [facility], [address] [place] [address] [id number] Carbon Dioxide Level January 09 8:43pm 28 mmol/l -31 [facility], [address] [place] [address] [id number] Carbon Dioxide Level December 29 4:40am 27 mmol/l -31 [facility], [address] [place] [address] [id number] Carbon Dioxide Level December 23 0 8:45am 30 mmol/l -31 [facility], [address] [place] [address] [id number] Carbon Dioxide Level December 13, 2019 2:05p m 30 mmol/l 20-31 [facility], [address] [place] [address] [id number] Carbon Dioxide Level December 10, 2019 11:04am 28 mmol/l 20-31 [facility], [address] [place], [place] [address] 78899 Carbon Dioxide Level November 14, 2019 1:15p m 29 mmol/l 20-31 [facility], [address] [place] [address] 86249 Carbon Dioxide Level October 30, 2019 1:59p m 24 mmol/l 20-31 [facility], [address] [place] [address] 69526 Carbon Dioxide Level July 24, 2019 10:08am 28 mmol/l 20-31 [facility], [address] [place] [address] 61779 Carbon Dioxide Level June 30, 2019 2:10pm 25 mmol/l 20-31 [facility], [address] [place] [address] 62759 Carbon Dioxide Level June 10 12:24pm 25 mmol/l 20-31 [facility], [address] [place] [address] 09296 Anion Gap April 09, 2020 3:40pm 9 mmol/l 8-16 [facility], [address] [place] [address] 39637 Anion Gap March 09, 2020 11:15am 9 mmol/l 8-16 [facility], [address] [place] [address] 47302 Anion Gap January 10, 2020 8:43pm 7 mmol/l 8-16 [facility], [address] [place] [address] 20111 Anion Gap December 30, 2019 4:40am 7 mmol/l 8-16 [facility], [address] [place] [address] 25491 Anion Gap December 24, 2019 8:45am 6 mmol/l 8-16 [facility], [address] [place] [address] 15328 Anion Gap December 13, 2019 2:05pm 7 mmol/l 8-16 [facility], [address] [place] [address] 76821 Anion Gap December 10, 2019 11:04am 8 mmol/l 8-16 [facility], [address] [place] [address] 22447 Anion Gap November 14, 2019 1:15pm 9 mmol/l 8-16 [facility], [address] [place] [address] 61516 Anion Gap October 30, 2019 1:59pm 13 mmol/l 01-03 [facility], [address] [place] [address] 94216 Anion Gap July 24, 2019 10:08am 9 mmol/l 01-03 [facility], [address] [place] [address] 11311 Anion Gap June 30, 2019 2:10pm 11 mmol/l [address] [place] [address] LABORATORY, [address] [place] [address] 74049 Anion Gap June 10, 2019 12:24pm 10 mmol/l 16 [facility], [address] [place] [address] 83495 Glucose Level April 09, 2020 3:40pm 86 mg/dL 74-106 [facility], [address] [place] [address] 22488 Glucose Level March 09, 2020 11:15am 92 mg/dL 74-106 [facility], [address] [place] [address] 09056 Glucose Level January 10, 2020 8:43pm 89 mg/dL 74-106 [facility], [address] [place] [address] 44889 Glucose Level December 30, 2019 4:40am 93 mg/dL 74-106 [facility], [address] [place] [address] 41826 Glucose Level December 24, 2019 8:45am 84 mg/dL 74-106 [facility], [address] [place] [address] 20885 Glucose Level December 13, 2019 2:05pm 94 mg/dL 74-106 [facility], [address] [place] [address] 20920 Glucose Level December 10, 2019 11:04am 85 mg/dL 74-106 [facility], [address] [place] [address] 11684 Glucose Level November 14, 2019 1:15pm 84 mg/dL 74-106 [facility], [address] [place] [address] 06101 Glucose Level October 30, 2019 1:59pm 74 mg/dL 74-106 [facility], [address] [place] [address] 37381 Glucose Level July 24, 2019 10:08am 86 mg/dL 74-106 [facility], [address] [place] [address] 60209 Glucose Level June 30, 2019 2:10pm 90 mg/dL 74-106 [facility], [address] [place] [address] 05828 Glucose Level June 10, 2019 12:24pm 115 mg/dL 74-106 [facility], [address] [place] [address] Bedside Glucose June 10, 2019 12:10pm 107 70-115 MUSTAFA PCX (POC GLUCOSE) Creatinine April 09, 2020 3:40pm 0.9 mg/dL 0.5-1.1 [facility], [address] [place], [place] [id number] Creatinine March 09, 2020 11:15am 0.8 mg/dL 0.5-1.1 [facility], [address] [place] [address] Creatinine January 10, 2020 8:43pm 0.6 mg/dL 0.5-1.1 [facility], [address] [place] [address] Creatinine December 30, 2019 4:40am 0.7 mg/dL 0.5-1.1 [facility], [address] [place] [address] Creatinine December 24, 2019 8:45am 0.8 mg/dL 0.5-1.1 [facility], [address] [place] [address] Creatinine December 13, 2019 2:05pm 0.7 mg/dL 0.5-1.1 [facility], [address] [place] [address] Creatinine December 10, 2019 11:04am 0.7 mg/dL 0.5-1.1 [facility], [address] [place] [address] Creatinine November 14, 2019 1:15pm 0.8 mg/dL 0.5-1.1 [facility], [address] [place] [address] Creatinine October 30, 2019 1:59pm 0.8 mg/dL 0.5-1.1 [facility], [address] [place], [place] [id number] Creatinine July 24, 2019 10:08am 0.8 mg/dL 0.5-1.1 [facility], [address] [place] [address] Creatinine June 30, 2019 2:10pm 0.8 mg/dL 0.5-1.1 [facility], [address] [place], [place] [id number] Creatinine June 10, 2019 12:24pm 0.8 mg/dL 0.5-1.1 [facility], [address] [place] [address] Glomerular Filtration Rate Calc [facility]2019 3:40pm Greater than 60 ml/min ABOVE 60 [facility], [address] [place] [address] 41931 Glomerular Filtration Rate Calc Octo 2019 11:15am Greater than 60 ml/min ABOVE 60 [facility], [address] [place] [address] 57465 Glomerular Filtration Rate Calc Augu st 2019 8:43pm Greater than 60 ml/min ABOVE 60 [facility], [address] [place] [address] Glomerular Filtration Rate Calc Augu st 2019 4:40am Greater than 60 ml/min ABOVE 60 [facility], [address] [place] [address] Glomerular Filtration Rate Calc Augu st 2019 8:45am Greater than 60 ml/min ABOVE 60 [facility], [address] [place] [address] 70099 Glomerular Filtration Rate Calc December 13, 2019 2:05pm Greater than 60 ml/min ABOVE 60 [facility], [address] [place] [address] 55479 Glomerular Filtration Rate Calc December 10, 2019 11:04am Greater than 60 ml/min ABOVE 60 [facility], [address] [place] [address] 82142 Glomerular Filtration Rate Calc November 14, 2019 1:15pm Greater than 60 ml/min ABOVE 60 [facility], [address] [place] [address] Glomerular Filtration Rate Calc October 30, 2019 1:59pm Greater than 60 ml/min ABOVE 60 [facility], [address] [place] [address] 55822 Glomerular Filtration Rate Calc Malachi h 2019 10:08am Greater than 60 ml/min ABOVE 60 [facility], [address] [place] [address] 14567 Glomerular Filtration Rate Calc Febr uary 2019 2:10pm Greater than 60 ml/min ABOVE 60 [facility], [address] [place] [address] 05994 Glomerular Filtration Rate Calc Petros carmen 2019 12:24pm Greater than 60 ml/min ABOVE 60 [facility], [address] [place] [address] 11832 Alanine Aminotransferase (ALT/SGPT) April 09, 2020 3:40pm 22 U/L 10-49 [facility], [address] [place] [address] 37231 Alanine Aminotransferase (ALT/SGPT) March 09, 2020 11:15am 17 U/L 10-49 [facility], [address] [place] [address] 85342 Alanine Aminotransferase (ALT/SGPT) January 10, 2020 8:43pm 17 U/L 10-49 [facility], [address] [place] [address] Alanine Aminotransferase (ALT/SGPT) December 30, 2019 4:40am 17 U/L 10-49 [facility], [address] [place] [address] 92027 Alanine Aminotransferase (ALT/SGPT) December 24, 2019 8:45am 24 U/L 10-49 [facility], [address] [place] [address] Alanine Aminotransferase (ALT/SGPT) December 13, 2019 2:05pm 21 U/L 10-49 [facility], [address] [place] [address] Alanine Aminotransferase (ALT/SGPT) December 10, 2019 11:04am 20 U/L 10-49 [facility], [address] [place] [address] 41386 Alanine Aminotransferase (ALT/SGPT) November 14, 2019 1:15pm 17 U/L 10-49 [facility], [address] [place] [address] Alanine Aminotransferase (ALT/SGPT) October 30, 2019 1:59pm 17 U/L 10-49 [facility], [address] [place] [address] 11335 Alanine Aminotransferase (ALT/SGPT) July 24, 2019 10:08am 24 U/L 10-49 [facility], [address] [place] [address] 98984 Alanine Aminotransferase (ALT/SGPT) June 10, 2019 12:24pm 16 U/L 10-49 [facility], [address] [place] [address] 29553 Aspartate Amino Transf (AST/SGOT) No vember 2019 3:40pm 13 U/L 0-33 [facility], [address] [place] [address] 89154 Aspartate Amino Transf (AST/SGOT) Oc tober 2019 11:15am 11 U/L 0-33 [facility], [address] [place] [address] 78033 Aspartate Amino Transf (AST/SGOT) Au mildred 2019 8:43pm 14 U/L 0-33 [facility], [address] [place] [address] 33666 Aspartate Amino Transf (AST/SGOT) Au mildred 2019 4:40am 12 U/L 0-33 [facility], [address] [place] [address] 25025 Aspartate Amino Transf (AST/SGOT) Au mildred 2019 8:45am 17 U/L 0-33 [facility], [address] [place] [address] 68648 Aspartate Amino Transf (AST/SGOT) Ju ly 2019 2:05pm 17 U/L 0-33 [facility], [address] [place] [address] 42684 Aspartate Amino Transf (AST/SGOT) Ju ly 2019 11:04am 17 U/L 0-33 [facility], [address] [place] [address] 92502 Aspartate Amino Transf (AST/SGOT) Ju ne 2019 1:15pm 15 U/L 0-33 [facility], [address] [place] [address] 91921 Aspartate Amino Transf (AST/SGOT) Ju ne 2019 1:59pm 12 U/L 0-33 [facility], [address] [place] [address] 51011 Aspartate Amino Transf (AST/SGOT) [facility] 2019 10:08am 15 U/L 0-33 [facility], [address] [place] [address] 99160 Aspartate Amino Transf (AST/SGOT) [facility] 2019 12:24pm 10 U/L 0-33 [facility], [address] [place] [address] 78572 Alkaline Phosphatase April 09, 2020 3:40pm 63 U/L 45-129 [facility], [address] [place] [address] 05535 Alkaline Phosphatase March 09 11:15am 66 U/L 45-129 [facility], [address] [place] [address] 39772 Alkaline Phosphatase January 09 8:43pm 52 U/L 45-129 [facility], [address] [place] [address] 41414 Alkaline Phosphatase December 29 4:40am 49 U/L 45-129 [facility], [address] [place] [address] 95102 Alkaline Phosphatase December 23 0 8:45am 60 U/L 45-129 [facility], [address] [place] [address] 62816 Alkaline Phosphatase December 13, 2019 2:05p m 53 U/L 45-129 [facility], [address] [place] [address] 59076 Alkaline Phosphatase December 10, 2019 11:04am 52 U/L 45-129 [facility], [address] [place] [address] Alkaline Phosphatase November 14, 2019 1:15p m 49 U/L 45-129 [facility], [address] [place] [address] Alkaline Phosphatase October 30, 2019 1:59p m 62 U/L 45-129 [facility], [address] [place] [address] 85986 Alkaline Phosphatase July 24, 2019 10:08am 49 U/L 45-129 [facility], [address] [place] [address] 75317 Alkaline Phosphatase June 10 12:24pm 70 U/L 45-129 [facility], [address] [place] [address] 09508 Amylase Level March 09, 2020 11:15am 53 U/L 30-118 [facility], [address] [place] [address] Amylase Level December 10, 2019 11:04am 34 U/L 30-118 [facility], [address] [place] [address] Amylase Level November 14, 2019 1:15pm 43 U/L 30-118 [facility], [address] [place] [address] 75465 Calcium Level April 09, 2020 3:40pm 8.9 mg/dL 8.5-10.1 [facility], [address] [place] [address] 36528 Calcium Level March 09, 2020 11:15am 8.8 mg/dL 8.5-10.1 [facility], [address] [place] [address] 19452 Calcium Level January 10, 2020 8:43pm 8.3 mg/dL 8.5-10.1 [facility], [address] [place] [address] 72706 Calcium Level December 30, 2019 4:40am 8.2 mg/dL 8.5-10.1 [facility], [address] [place] [address] 68980 Calcium Level December 24, 2019 8:45am 9.0 mg/dL 8.5-10.1 [facility], [address] [place] [address] 84907 Calcium Level December 13, 2019 2:05pm 8.4 mg/dL 8.5-10.1 [facility], [address] [place] [address] 11394 Calcium Level December 10, 2019 11:04am 8.5 mg/dL 8.5-10.1 [facility], [address] [place] [address] 77972 Calcium Level November 14, 2019 1:15pm 8.3 mg/dL 8.5-10.1 Delta: 9.6 on 10/30/19-1459Repeated by: Grisel Conroy 11/14/19 1515.Result Confirmation: 8.9 mg/dL [facility], [address] [place] [address] 02397 Calcium Level October 30, 2019 1:59pm 9.6 mg/dL 8.5-10.1 [facility], [address] [place] [address] 78400 Calcium Level July 24, 2019 10:08am 9.1 mg/dL 8.5-10.1 [facility], [address] [place] [address] 72444 Calcium Level June 30, 2019 2:10pm 8.6 mg/dL 8.5-10.1 [facility], [address] [place] [address] 53478 Calcium Level June 10, 2019 12:24pm 9.3 mg/dL 8.5-10.1 [facility], [address] [place] [address] 17927 Total Bilirubin April 09, 2020 3:40pm 0.2 mg/dL 0.3-1.2 [facility], [address] [place] [address] 86384 Total Bilirubin March 09, 2020 11:15am 0.3 mg/dL 0.3-1.2 [facility], [address] [place] [address] 89878 Total Bilirubin January 10, 2020 8:43pm 0.2 mg/dL 0.3-1.2 [facility], [address] [place] [address] 38932 Total Bilirubin December 30, 2019 4:40am 0.4 mg/dL 0.3-1.2 [facility], [address] [place] [address] 54531 Total Bilirubin December 24, 2019 8:45am 0.6 mg/dL 0.3-1.2 [facility], [address] [place] [address] 02521 Total Bilirubin December 13, 2019 2:05pm 0.3 mg/dL 0.3-1.2 [facility], [address] [place] [address] 14904 Total Bilirubin December 10, 2019 11:04am 0.4 mg/dL 0.3-1.2 [facility], [address] [place] [address] Total Bilirubin November 14, 2019 1:15pm 0.6 mg/dL 0.3-1.2 [facility], [address] [place] [address] Total Bilirubin October 30, 2019 1:59pm 0.7 mg/dL 0.3-1.2 [facility], [address] [place] [address] 65914 Total Bilirubin July 24, 2019 10:08am 0.6 mg/dL 0.3-1.2 [facility], [address] [place] [address] 59706 Total Bilirubin June 10, 2019 12:24pm 0.5 mg/dL 0.3-1.2 [facility], [address] [place] [address] 44395 Albumin April 09, 2020 3:40pm 3.5 g/dL 3.2-4.8 [facility], [address] [place] [address] 84033 Albumin March 09, 2020 11:15am 3.6 g/dL 3.2-4.8 [facility], [address] [place] [address] 59976 Albumin January 10, 2020 8:43pm 3.1 g/dL 3.2-4.8 [facility], [address] [place] [address] 12133 Albumin December 30, 2019 4:40am 3.3 g/dL 3.2-4.8 [facility], [address] [place] [address] 92820 Albumin December 24, 2019 8:45am 3.8 g/dL 3.2-4.8 [facility], [address] [place] [address] 21071 Albumin December 13, 2019 2:05pm 3.4 g/dL 3.2-4.8 [facility], [address] [place] [address] 90909 Albumin December 10, 2019 11:04am 3.4 g/dL 3.2-4.8 [facility], [address] [place] [address] 56103 Albumin November 14, 2019 1:15pm 3.5 g/dL 3.2-4.8 [facility], [address] [place] [address] 26545 Albumin October 30, 2019 1:59pm 4.2 g/dL 3.2-4.8 [facility], [address] [place] [address] 90493 Albumin July 24, 2019 10:08am 4.1 g/dL 3.2-4.8 [facility], [address] [place] [address] 01250 Albumin June 10, 2019 12:24pm 4.3 g/dL 3.2-4.8 [facility], [address] [place], [place] [id number] Serum Total Protein April 09 3:40pm 6.9 g/dL 5.7-8.2 [facility], [address] [place], [place] [id number] Serum Total Protein March 09 11:15am 6.5 g/dL 5.7-8.2 [facility], [address] [place], [place] [id number] Serum Total Protein January 09 0 8:43pm 5.9 g/dL 5.7-8.2 [facility], [address] [place], [place] [id number] Serum Total Protein December 29 0 4:40am 5.7 g/dL 5.7-8.2 [facility], [address] [place], [place] [id number] Serum Total Protein December 24, 2019 8:45a m 6.8 g/dL 5.7-8.2 [facility], [address] [place], [place] [id number] Serum Total Protein December 13, 2019 2:05pm 6.5 g/dL 5.7-8.2 [facility], [address] [place] [address] Serum Total Protein December 10, 2019 11:04a m 6.1 g/dL 5.7-8.2 [facility], [address] [place], [place] [id number] Serum Total Protein November 14, 2019 1:15pm 6.2 g/dL 5.7-8.2 [facility], [address] [place], [place] [id number] Serum Total Protein October 30, 2019 1:59pm 7.2 g/dL 5.7-8.2 [facility], [address] [place], [place] [id number] Serum Total Protein July 24, 2019 10:08a m 7.2 g/dL 5.7-8.2 [facility], [address] [place] [address] Serum Total Protein June 10 12:24pm 7.9 g/dL 5.7-8.2 [facility], [address] [place] [address] 20216 Lactic Acid Level December 28, 2019 7:26am 0.7 mmol/L 0.5-2.2 [facility], [address] [place] [address] 53958 Phosphorus Level March 09, 2020 11:15a m 3.5 mg/dL 2.4-5.1 [facility], [address] [place] [address] 21103 Phosphorus Level December 30, 2019 4:40am 3.7 mg/dL 2.4-5.1 [facility], [address] [place] [address] 45621 Phosphorus Level December 10, 2019 11:04am 3.0 mg/dL 2.4-5.1 [facility], [address] [place] [address] 32727 Phosphorus Level November 14, 2019 1:15pm 3.2 mg/dL 2.4-5.1 [facility], [address] [place] [address] 41564 Triglycerides Level December 10, 2019 11:04a m 59 mg/dL 0-150 [facility], [address] [place] [address] 71358 Triglycerides Level November 14, 2019 1:15pm 58 mg/dL 0-150 [facility], [address] [place] [address] 22683 Cholesterol Level December 10, 2019 11:04am 158 mg/dL 120-200 [facility], [address] [place] [address] 98533 Cholesterol Level November 14, 2019 1:15pm 146 mg/dL 120-200 [facility], [address] [place] [address] 42886 HDL Cholesterol December 10, 2019 11:04am 71 mg/dL HDL Less than 40 mg/dL: Major risk for CHDHDL Greater than 59 mg/dL: Low risk for CHD [facility], [address] [place] [address] 13380 HDL Cholesterol November 14, 2019 1:15pm 57 mg/dL HDL Less than 40 mg/dL: Major risk for CHDHDL Greater than 59 mg/dL: Low risk for CHD [facility], [address] [place] [address] 35876 LDL Cholesterol, Calculated November 11:04am 76 mg/dL 0-100 [facility], [address] [place] [address] 90845 LDL Cholesterol, Calculated October 1:15pm 78 mg/dL 0-100 [facility], [address] [place] [address] 05305 Magnesium Level March 09, 2020 11:15am 1.9 mg/dL 1.3-2.7 [facility], [address] [place] [address] Magnesium Level December 30, 2019 4:40am 1.8 mg/dL 1.3-2.7 [facility], [address] [place] [address] Magnesium Level December 10, 2019 11:04am 2.0 mg/dL 1.3-2.7 [facility], [address] [place] [address] Magnesium Level November 14, 2019 1:15pm 1.7 mg/dL 1.3-2.7 [facility], [address] [place] [id number] Urine Marijuana (THC) Screen December 122019 2:00pm Negative ng/mL Cutoff 50 [facility], [address] [place] [address] Urine Phencyclidine Screen November 2:00pm Negative ng/mL Cutoff 25 [facility], [address] [place] [id number] Urine Cocaine Screen December 13, 2019 2:00p m Negative ng/mL Cutoff 150 [facility], [address] [place] [address] Urine Methamphetamines Screen November 192019 2:00pm Negative ng/mL Cutoff 500 [facility], [address] [place] [address] Urine Opiates Screen December 13, 2019 2:00p m Presumptive positive ng/mL Cutoff 1 00 This test is for screening purposes o nly. Confirmation of positive results will be sent to our Reference lab only at the Physician's request. [facility], [address] [place] [id number] Urine Amphetamines Screen December 13, 2019 2:00pm Negative ng/mL Cutoff 500 [facility], [address] [place] [id number] Urine Benzodiazepines Screen December 122019 2:00pm Presumptive positive ng/mL Cutoff 150 This test is for screening purposes o nly. Confirmation of positive results will be sent to our Reference lab only at the Physician's request. [facility], [address] [place] [address] Ur Tricyclic Antidepressants Screen December 13, 2019 2:00pm Negative ng/mL Cutoff 300 [facility], [address] [place] [address] Urine Methadone Screen December 12 2:00pm Negative ng/mL Cutoff 200 [facility], [address] [place] [address] Urine Barbiturates December 13, 2019 2:00pm Negative ng/mL Cutoff 200 [facility], [address] [place], [place] [id number] Urine Oxycodone Screen December 12 2:00pm Negative ng/mL Cutoff 100 [facility], [address] [place] [address] Urine Propoxyphene Screen December 13, 2019 2:00pm Negative ng/mL Cutoff 300 [facility], [address] [place], [place] [id number] Urine Buprenorphine Screen November 2:00pm Negative ng/mL Cutoff 10 [facility], [address] [place] [address] Vitamin B12 Level November 14, 2019 1:15pm 440 pg/mL [id number] [facility], [address] [place] [address] Troponin I January 10, 2020 8:43pm Less than 0.015 ng/mL 0.00-0.09 Less than 0.09 NG/ML Negative0.10 - 0.77 NG/ML High Risk0.78 NG/ML or Greater Positive The WHO defined the cutoff (definition for diagnosis of [place])for this method as 0.78 ng/ml. [facility], [address] [place] [place] [address] Troponin I December 28, 2019 4:35am Less than 0.015 ng/mL 0.00-0.09 Less than 0.09 NG/ML Negative0.10 - 0.77 NG/ML High Risk0.78 NG/ML or Greater Positive The WHO defined the cutoff (definition for diagnosis of [place])for this method as 0.78 ng/ml. [facility], [address] [place] [address] Troponin I December 13, 2019 2:05pm Less than 0.015 ng/mL 0.00-0.09 Less than 0.09 NG/ML Negative0.10 - 0.77 NG/ML High Risk0.78 NG/ML or Greater Positive The WHO defined the cutoff (definition for diagnosis of [place])for this method as 0.78 ng/ml. [facility], [address] [place] [address] Free Thyroxine March 09, 2020 11:15am 0.90 ng/dL 0.89-1.76 [facility], [address] [place] [address] Free Thyroxine December 10, 2019 11:04am 0.97 ng/dL 0.89-1.76 [facility], [address] [place] [address] Free Thyroxine November 14, 2019 1:15pm 1.05 ng/dL 0.89-1.76 [facility], [address] [place] [address] Thyroid Stimulating Hormone (TSH) Oc tob2019 11:15am 1.61 uIU/mL 0.35-5.50 [facility], [address] [place] [address] Thyroid Stimulating Hormone (TSH) Au mildred 2019 4:35am 3.54 uIU/mL 0.35-5.50 [facility], [address] [place] [address] Thyroid Stimulating Hormone (TSH) Ju ly 2019 11:04am 3.89 uIU/mL 0.35-5.50 [facility], [address] [place] [address] Thyroid Stimulating Hormone (TSH) Ju ne 2019 1:15pm 0.88 uIU/mL 0.35-5.50 [facility], [address] [place] [address] Serum Test, Qualitative Au mildred 2019 8:43pm Negative NEGATIVE [facility], [address] [place] [address] Serum Test, Qualitative Au mildred 2019 4:35am Negative NEGATIVE [facility], [address] [place] [address] Serum Test, Qualitative Ju ly 2019 2:05pm Negative NEGATIVE [facility], [address] [place] [address] Serum Test, Qualitative Ju ly 2019 11:04am Negative NEGATIVE [facility], [address] [place] [address] Serum Test, Qualitative Ju ne 2019 1:15pm Negative NEGATIVE [facility], [address] [place] [address] Urine HCG, Qualitative June 10, 2019 12:20pm Negative NEGATIVE [facility], [address] [facility] [address] Cortisol December 28, 2019 7:00am 7.9 mcg/dL Reference Range: For 8 a.m.(7-9 a.m.) Specimen: 4.0-22.0Reference Range: For 4 p.m.(3-5 p.m.) Specimen: 3.0-17.0 * Please interpret above results accordingly *THIS TEST WAS PERFORMED AT:[facility] [id number] MERATI,MD [facility] Urine Drug Screen (T) March 09, 2020 11:18am See scanned report [facility] Hepatitis B Surface Ab Concentrat Au mildred 2019 4:06pm 75 mIU/mL Patient has immunity to hepatitis B viru s.For additional information, please refer tohttp://education.BadSeed.Kuponjo/faq/DUZ903(This link is being provided for informational/educational purposes only).THIS TEST WAS PERFORMED AT:[facility] [address]TBEKPN MERATI,MD [facility] Urine Amphetamines Screen December 10, 2019 11:16am Negative ng/mL Cutoff= 500 Amphetamine test includes Amphetamine an d Methamphetamine. [facility] , [address] [facility] [address] Urine Barbiturates Screen December 10, 2019 11:16am Negative ng/mL Cutoff= 200 [facility] , [address] [facility] [address] Benzodiazepines December 10, 2019 11:16am Positive ng/mL Escmag=192 Confirmation performed by Mass Spectrometry [facility] , [address] [facility] [address] Urine Nordiazepam Screen December 10, 2019 11:16am Negative Wsrreo=751 [facility] , [address] [facility] [address] Urine Oxazepam Screen December 09 0 11:16am Negative Dyxhnn=208 [facility] , [address] [facility] [address] Urine Flurazepam Screen December 09 020 11:16am Negative Pejgdh=683 [facility] , [address] [facility] [address] Urine Lorazepam Screen December 09 11:16am Negative Gfoemx=006 [facility] , [address] [facility] [address] Urine Alprazolam Screen December 09 11:16am Positive [facility] , [address] [facility] [address] Urine Alprazolam Confirmation November 192019 11:16am >1000 ng/mL Zcbglf=527 [facility] , [address] [facility] [address] Urine Clonazepam Screen December 09 11:16am Negative Aywqny=265 [facility] , [address] [facility] [address] Urine Temazepam Screen December 09 11:16am Negative Goabqb=486 [facility] , [address] [facility] [address] Urine Triazolam Screen December 09 11:16am Negative Rsmagq=320 [facility] , [address] [facility] [address] Urine Midazolam Screen December 09 11:16am Negative Ankgcq=969 [facility] , [address] [facility] [address] Urine Marijuana (THC) Screen December 092019 11:16am Negative ng/mL Cutoff= 20 [facility] , [address] [facility] [address] Urine Cocaine Screen December 10, 2019 11:16am Negative ng/mL Cutoff= 150 [facility] , [address] [facility] [address] Opiates Screen December 10, 2019 11:16am See final results ng/mL Lciyur=669 Opiate test includes Codeine, Morphine, Hydromorphone, Hydrocodone. [facility] , [address] [facility] [address] Urine Opiates Screen December 10, 2019 11:16am Positive Pmbsyy=684 Opiate test includes Codeine, Morphine, Hydromorphone, Hydrocodone. [facility] , [address] [facility] [address] Urine Codeine Screen December 10, 2019 11:16am Negative Ctceal=269 [facility] , [address] [facility] [address] Urine Morphine Screen December 09 0 11:16am Negative Ryiphm=164 [facility] , [address] [facility] [address] Urine Hydromorphone Screen November 11:16am Positive [facility] , [address] [facility] [address] Urine Hydromorphone Confirm (GC/MS) December 10, 2019 11:16am 1152 ng/mL Gxctlz=379 [facility] , [address] [facility] [address] Urine Hydrocodone Screen December 10, 2019 11:16am Positive [facility] , [address] [facility] [address] Urine Hydrocodone Confirm (GC/MS) Ju 2019 11:16am 6249 ng/mL Gzrfiw=178 [facility] , [address] [facility] [address] Phencyclidine (PCP) Screen November 11:16am Negative ng/mL Cutoff= 25 [facility] , [address] [facility] [address] Urine Ethyl Alcohol Screen November 11:16am Negative % Cutoff=0.02 0 [facility] , [address] [facility] [address] Urine Creatinine December 10, 2019 11:16am 216.2 mg/dL Performed at: [place] - [facility] [address] [place], [place] [id number] Director: Rosanne Mcbride MD, Phone: [phone] at: [place] - [facility] [place], [place] [id number] Director: Rosanne Mcbride MD, Phone: [phone] [facility] , [address] [facility] [address] Free Triiodothyronine March 09, 2020 11:15am 2.4 pg/mL THIS TEST WAS PERFORMED AT:[facility] [place] [address]QOJHLE MERATI,MD [facility] Free Triiodothyronine December 09 0 11:04am 3.0 pg/mL Performed at: RN - [facility] [address] [id number] Director: Rosanne Mcbride MD, Phone: [phone] [facility] , [address] [facility] [address] Free Triiodothyronine November 13 0 1:15pm 2.2 pg/mL Performed at: RN - [facility] [address] [id number] Director: Rosanne Mcbride MD, Phone: [phone] [facility] , [address] [place] [address] Vitamin D 25-Hydroxy March 09 11:15am 65 ng/mL Vitamin D Status 25-OH Vitamin D:Deficiency: <20 ng/mLInsufficiency: 20 - 29 ng/mLOptimal: > or = 30 ng/mLFor 25-OH Vitamin D testing on patients onD2-supplementation and patients for whom quantitationof D2 and D3 fractions is required, the QuestAssureD(TM)25- OH VIT D, (D2,D3), LC/MS/MS is recommended: ordercode 09620 (patients >2yrs).See Note 1Note 1For additional information, please refer tohttp://education.Versly.Kuponjo/faq/XVG311(This link is being provided for informational/educational purposes only.)THIS TEST WAS PERFORMED AT:[facility] [address]SHANTI CORRIGAN MD [facility] Vitamin D 25-Hydroxy December 10, 2019 11:04am 27.0 ng/mL Vitamin D deficiency has been defined by the [place] ofMedicine and an Endocrine Society practice guideline as alevel of serum 25-OH vitamin D less than 20 ng/mL (1,2).The Endocrine Society went on to further define vitamin Dinsufficiency as a level between 21 and 29 ng/mL (2).1. IOM ([place] of Medicine). 2010. Dietary reference intakes for calcium and D. [place]: The National Academies Press.2. Nikunj Gay, Ana KIRBY, et al. Evaluation, treatment, and prevention of vitamin D deficiency: an Endocrine Society clinical practice guideline. JCEM. 2010; 96(7):1911-30.Performed at: [facility] [address] [id number] Director: Rosanne Mcbride MD, Phone: [phone] [facility] , [address] [place] [address] Vitamin D 25-Hydroxy November 14, 2019 1:15p m 30.4 ng/mL Vitamin D deficiency has been defined by the [place] of[place]icine and an Endocrine Society practice guideline as alevel of serum 25-OH vitamin D less than 20 ng/mL (1,2).The Endocrine Society went on to further define vitamin Dinsufficiency as a level between 21 and 29 ng/mL (2).1. IOM ([place] of Medicine). 2010. Dietary reference intakes for calcium and D. [place]: The National Academies Press.2. Abby SERRATO, Nikunj JAMES, Ana KIRBY, et al. Evaluation, treatment, and prevention of vitamin D deficiency: an Endocrine Society clinical practice guideline. JCEM. 2010; 96(7):1911-30.Performed at: [facility] [address] [id number] Director: Rosanne Mcbride MD, Phone: [phone] [facility] , [address] [place] [address] Microbiology Results Procedure Source Result Collection Date/Time Result Date/Time Result Comment Performing Site Streptococcus Rapid Screen Throat April 09, 2020 4:11pm April 11, 2020 7:22am [facility], [address] [place] [address] Streptococcus Rapid Screen Throat April 09, 2020 4:11pm April 09, 2020 4:39pm [facility], [address] [place] [address] Blood Culture Venous blood No growth. December 28, 2019 8:26am January 02, 2020 8:29am [facility], [address] [place] [address] Diagnostic Imaging Reports Report Dictated Date/Time Dictated By Status Radiology Report December 13, 2019 4:04pm Angélica Lazo MD completed [facility] [address] [place] [address] [phone] NAME SEX PT STATUS ACCOUNT NUMBER CHARANJIT POST REG ER [id number] ORDERING PHYSICIAN LOCATION MEDICAL RECORD NO. Maynor Coates MD ER [id number] ATTENDING PHYSICIAN DATE OF DATE OF EXAM/TIME Hayde Green MD 1985 12/13/191432 TYPE / EXAM Xray Chest 2 view PA/LAT REASON FOR EXAM ams Clinical History/Indication for Exam: ams RADIOGRAPHS OF THE CHEST 2 VIEWS INDICATION: ams COMPARISON: No relevant prior studies available. FINDINGS: Lungs: There is opacity within the right cardiophrenic angle which may be due to pectus deformity of the thoracic cage. I have no comparison available at this time. Chest CT may be obtained for further evaluation if clinically warranted. Pleural space: Unremarkable. No pneumothorax. Heart: Cardiac silhouette is within normal limit. Mediastinum: Unremarkable. IMPRESSION: There is opacity within the right cardiophrenic angle which may be due to pectus deformity of the thoracic cage. I have no comparison available at this time. Chest CT may be obtained for further evaluation to exclude consolidation if clinically warranted. REPORT SIGNATURE ON FILE 12/13/2019 (16:04 Eastern Time ) Signed by: Angélica Lazo M.D. Reported By Angélica Lazo MD on 12/13/19 1604 Signed By Angélica Lazo MD on 12/13/19 1604 Date Time CC: Angélica Lazo MD; Hayde Green MD Techn: CUMME Trans Dt/Tm: Trans by: DT Prt Dt/Tm: [id number]: Total DLP = 0.00 mGy-cm Fluoroscopy Time (in secs): Radiology Report December 13, 2019 4:06pm Angélica Lazo MD completed [facility] [address] [place] [address] [phone] NAME SEX PT STATUS ACCOUNT NUMBER CHARANJIT POST [facility] ER [id number] ORDERING PHYSICIAN LOCATION MEDICAL RECORD NO. Maynor Coates MD ER [id number] ATTENDING PHYSICIAN DATE OF DATE OF EXAM/TIME Hayde Green MD 1985 12/13/19 / 1555 TYPE / EXAM CT Head without contrast REASON FOR EXAM ams Clinical History/Indication for Exam: ams CT of the head was obtained using standard protocol without contrast. I have no comparison available at this time. CT does reduction automated exposure control technique was used. Total radiation dose DLP 564 mGycm. Indication: Altered mental status Findings: Brain attenuation coefficient is within normal limits for patient's age. Ventricular system are normal in size, shape and configuration for patient's age. No acute intracranial hemorrhage or midline shift is seen. No retro-orbital masses are seen. Temporal lobes are grossly symmetric. No abnormal mass in cerebellar pontine angle is seen. C1-C2 alignment appears within normal limits. The visualized buccal fat pad and parapharyngeal spaces are grossly unremarkable. No abnormal extra-axial fluid collection is seen. The visualized paranasal sinuses are patent. No acute calvarial fracture seen. If further evaluation is clinically warranted, follow-up with MRI may be obtained. Impression: Age-appropriate brain changes. No evidence of acute major vascular territorial infarct, intracranial hemorrhage or midline shift. Automatic exposure control was used as a dose lowering technique. Radiation Dose: CTDI is 32.95 mGy. DLP is 563.9 mGy-cm. REPORT SIGNATURE ON FILE 12/13/2019 (16:06 Eastern Time ) Signed by: Angélica Lazo M.D. Reported By Angélica Lazo MD on 12/13/19 160 Signed By Angélica Lazo MD on 12/13/19 160 Date Time CC: Angélica Lazo MD; Hayde Green MD Techn: CUMME Trans Dt/Tm: Trans by: DT Prt Dt/Tm: 4779-3166: Total DLP = 564.00 mGy-cm : Total Radiation Dose = 1.7484 mSv Lifetime Dose: 1.7484 mSv Radiology Report December 29, 2019 11:33am Shaggy Mobley MD completed [facility] [address] [place] [address] [phone] NAME SEX PT STATUS ACCOUNT NUMBER CHARANJIT POST ADM MADDY [id number] ORDERING PHYSICIAN LOCATION MEDICAL RECORD NO. Basilio Fields MD [id number] ATTENDING PHYSICIAN DATE OF DATE OF EXAM/TIME Hayde Green MD 1985 12/29/19 / 3 TYPE / EXAM CT Abd/pel w/o contrast REASON FOR EXAM Abdominal pain, recurrent syncope, hypotension COMPARISON: None available. TECHNIQUE: CT images through the abdomen and pelvis obtained without intravenous contrast. FINDINGS: Please note that in the absence of intravenous contrast, evaluation of solid organs of the abdomen is somewhat limited. LUNG BASES: Unremarkable LIVER: At the upper limits for normal in size. No focal mass lesions. No intrahepatic biliary ductal dilatation. GALLBLADDER: CT appearance is unremarkable. SPLEEN: Unremarkable. PANCREAS: Normal CT appearance. ADRENALS: No nodules. KIDNEYS: No solid lesions. No calculi. No hydroureteronephrosis. BOWEL: Nondilated. MESENTERY/PERITONEUM: Unremarkable. NODES: Nondilated. PELVIS: By history, the patient has polycystic ovarian syndrome. Evaluation of the ovaries is suboptimal with CT. However, a physiologic amount of free pelvic fluid is seen.. BONE WINDOWS: No aggressive osseous abnormalities. VASCULATURE: Normal, without aneurysm or significant atherosclerotic disease. SOFT TISSUES: Unremarkable. IMPRESSION: 1. No free intraperitoneal air or fluid. 2. Small amount of free pelvic fluid. 3. No small or large bowel obstruction. 4. Essentially clear lung bases. Reported By Shaggy Mobley MD on 12/29/19 1133 Signed By Shaggy Mobley MD on 12/29/19 1142 Date Time CC: Shaggy Mobley MD; Hayde Green MD Techn: MORSA Trans Dt/Tm: Trans by: DT Prt Dt/Tm: : Total DLP = 323.00 mGy-cm : Total Radiation Dose = 4.8450 mSv Lifetime Dose: 6.5934 mSv Radiology Report December 29, 2019 5:44pm Ag Radford completed [facility] [address] [place] [id number] [phone] NAME SEX PT STATUS ACCOUNT NUMBER CHARANJIT POST DIS MADDY [id number] ORDERING PHYSICIAN LOCATION MEDICAL RECORD NO. Connell KRISTIE FuentesRadhaSelect Medical [facility] [id number] ATTENDING PHYSICIAN DATE OF DATE OF EXAM/TIME Hayde Green MD 1985 12/29/191055 TYPE / EXAM US Echo complete REASON FOR EXAM syndope, hypokalemia, eating disorder ECHOCARDIOGRAM 12/29/2019 INTERPRETATION 1. All chamber dimensions are normal. Aortic root measures 2.1, left atrium 3.1, left ventricle 4.4, IV septum 1.0, posterior wall 0.8, right ventricle 2.0. 2. No pericardial effusion. 3. Normal appearance of aortic, mitral, tricuspid, and pulmonic valves. 4. Normal left ventricular systolic fun ction, ejection fraction 55%. 5. Doppler valve study reveals mild to moderate MR, and mild TR, with normal left ventricular diastolic function. CONCLUSION Mild to moderate mitral insufficiency, mild tricuspid insufficiency, otherwise normal echocardiogram and Doppler. Reported By Ag Radford MD on 12/29/19 5774 Signed By Ag Radford MD on 01/07/20 7055 <<Signature on File>> Date Time CC: Ag Radford M.D.; Hayde Green MD Techn: FREST Trans Dt/Tm: 12/30/19 0840 Trans by: MK Prt Dt/Tm: : Total DLP = 0.00 mGy-cm : Total Radiation Dose = 0.0000 mSv Lifetime Dose: 6.5934 mSv Radiology Report January 10, 2020 10:48pm Vito Martinez MD completed [facility] [address] [place] [address] [phone] NAME SEX PT STATUS ACCOUNT NUMBER CHARANJIT POST REG ER [id number] ORDERING PHYSICIAN LOCATION MEDICAL RECORD NO. Sukhjinder Deshpande MD ER [id number] ATTENDING PHYSICIAN DATE OF DATE OF EXAM/TIME Lissette Smith NP 1985 01/10/202234 TYPE / EXAM CT Head without contrast REASON FOR EXAM syncope Clinical History/Indication for Exam: syncope CT brain without contrast 01/10/2020 Clinical information: Syncope Technique: Routine noncontrast CT brain. Comparison: 12/13/2019 Findings: There is no interval evidence of an acute intracranial hemorrhage or infarction in the brain. There is no interval midline shift, intracranial mass, or mass-effect. There is no interval extra- axial fluid collection or hydrocephalus. Stable ventricle size. There are postoperative changes of partial ethmoid resection and medial antrostomy. Impression: 1. No acute process in the brain. Automatic exposure control was used as a dose lowering technique. Radiation Dose: CTDI is 35.49 mGy. DLP is 670 mGy-cm. REPORT SIGNATURE ON FILE 01/10/2020 (22:48 Eastern Time ) Signed by: Vito Martinez M.D. Reported By Vito Martinez MD on 01/10/202247 Signed By Vito Martinez MD on 01/10/202247 Date Time CC: Vito Martinez MD; Lissette Smith Techn: SNSTEPHANIEU Trans Dt/Tm: Trans by: DT Prt Dt/Tm: : Total DLP = 670.00 mGy-cm : Total Radiation Dose = 2.0770 mSv Lifetime Dose: 8.6704 mSv Radiology Report April 09, 2020 4:39p m Livan Johns MD completed [facility] [address] [place] [id number] [phone] NAME SEX PT STATUS ACCOUNT NUMBER CHAARNJIT POST REG ER [id number] ORDERING PHYSICIAN LOCATION MEDICAL RECORD NO. Nanci Vazquez [id number] ATTENDING PHYSICIAN DATE OF DATE OF EXAM/TIME Hayde Green MD 1985 04/09/20 / 1635 TYPE / EXAM Xray Chest 2 view PA/LAT REASON FOR EXAM SOB, rib pain Clinical History/Indication for Exam: SOB, rib pain Chest, Two View: Indications: Short of breath Comparison study: 12/13/2019 Findings: Lungs: The lung volumes are normal. No focal consolidation. Pulmonary vasculature is within normal limits. Pleura: No pneumothorax. No pleural effusion. Heart and Mediastinum: The cardiomediastinal silhouette is normal in size and contour. The great vessels are normal. Osseous structures: Visualized osseous structures are intact. Impression: No acute cardiopulmonary process. Chronic appearing changes at the medial right base of the hemithorax likely related to pectus deformity given stability. REPORT SIGNATURE ON FILE 04/09/2020 (16:39 Eastern Time ) Signed by: Livna Johns M.D. Reported By Livan Johns MD on 04/09/201638 Signed By Livan Johns MD on 04/09/201638 Date Time CC: Hayde Green MD; Livan Johns MD Techn: CUMME Trans Dt/Tm: Trans by: DT Prt Dt/Tm: 4002-3146: Total DLP = 0.00 mGy-cm Fluoroscopy Time (in secs): Health Concerns Health Concerns may be documented in an alternate section. Advance Directives Advance Directive Response Recorded Date/Time Advanced Directive No Cristina amador2019 2:59pm Does Patient have a DNR? No April 09, 2020 2:59pm Healthcare Proxy No Emmie burgess 2019 2:59pm Living Will No July 11, 2019 2:59pm Chief Complaint and Reason for Visit Chief Complaint HEART RACING,DIZZINE SS Anxiety follow-up Anxiety follow-up Anxiety follow-up E87.6 Anxiety follow-up Anxiety follow-up R63.4 Anxiety follow-up Anxiety follow-up Telemed Visit Telemed Visit Anxiety follow-up Anxiety follow-up Anxiety follow-up R42 Anxiety follow-up E86.0,E46,F50.02 EKG Anxiety follow-up E86.0,E46,R07.9,F50.02 MEMORY LOSS Anxiety R63.0 SYNCOPE,HYPOKALEMIA,EATING DISORDER Anxiety follow-up PPD Placement/Read Z11.59 ER Follow-up (Adult) Telemed Visit E86.0,F50.01 SOB,FEVER,R/O COVID Telemed Visit Reason for Visit Anorexia Anorexia Anorexia Anorexia Anorexia Anorexia Anorexia Anorexia Hypokalemia Hypotension Anxiety Anxiety Anxiety Eating disorder Body aches Sinus pain Encounters Encounter Location(s) Ar rival/Admit Date Discharge/Depart Date Provider(s) Departed Emergency [facility] June 10, 2019 3:22am June 10, 2019 4:20am null Departed Emergency [facility] June 10, 2019 11:53am June 10, 2019 3:41pm null Departed Physician/Provider Office Visit [facility] June 13, 2019 11:30am June 13, 2019 12:37pm Hayde Green MD Departed Physician/Provider Office Visit [facility] June 16, 2019 8:36am June 16, 2019 8:53am Hayde Green MD Departed Physician/Provider Office Visit [facility] June 30, 2019 1:17pm June 30, 2019 1:51pm Hayde Green MD Registered Referred [facility] June 30, 2019 1:53pm Hayde Green MD Departed Physician/Provider Office Visit [facility] July 11, 2019 2:41pm July 11, 2019 2:57pm Hayde Green MD Departed Physician/Provider Office Visit [facility] July 24, 2019 9:05am July 24, 2019 9:47am Hayde mo MD Registered Referred [facility] July 24, 2019 9:52am Hayde Green MD Departed Physician/Provider Office Visit [facility] August 08, 2019 1:33pm August 08, 2019 1:58pm Hayde stokes MD Departed Physician/Provider Office Visit [facility] August 21, 2019 1:37pm August 21, 2019 2:08pm Hayde mo MD Departed Physician/Provider Office Visit [facility] September 04, 2019 2:02pm September 04, 2019 2:13pm Hayde stokes MD Departed Physician/Provider Office Visit [facility] September 18, 2019 1:59pm September 18, 2019 2:14pm Hayde stokes MD Departed Physician/Provider Office Visit [facility] October 02, 2019 1:22pm October 02, 2019 1:44pm Hayde turner MD Departed Physician/Provider Office Visit [facility] October 16, 2019 12:58pm October 16, 2019 1:24pm Hayde turner MD Departed Physician/Provider Office Visit [facility] October 30, 2019 1:32pm October 30, 2019 1:53pm Hayde mo MD Registered Referred [facility] October 30, 2019 1:56pm Hayde Green MD Departed Physician/Provider Office Visit [facility] November 14, 2019 12:27pm November 14, 2019 12:51pm Hayde stokes MD Registered Referred [facility] November 14, 2019 12:56pm MALACHI GILLIS MD Registered [facility] November 19, 2019 1:30pm Hayde Green MD Departed Physician/Provider Office Visit [facility] November 28, 2019 12:08pm November 28, 2019 12:44pm Hayde stokes MD [facility] 10:39am MALACHI GILLIS MD Departed Emergency [facility] December 13, 2019 12:51pm December 13, 2019 3:59pm null Departed Physician/Provider Office Visit [facility] December 24, 2019 7:59am December 24, 2019 8:36am Hayde stokes MD [facility] 24, 2019 8:39am Hayde Green MD Discharged Inpatient [facility] December 28, 2019 7:58am December 30, 2019 8:59am Basilio Fields MD Departed Physician/Provider Office Visit [facility] December 31, 2019 9:20am December 31, 2019 9:51am Hayde rowland MD Departed Physician/Provider Office Visit [facility] January 02, 2020 10:06am January 02, 2020 10:18am Hayde Green MD [facility], 2020 4:01pm Lissette Smith Departed Emergency [facility] January 10, 2020 8:01pm January 11, 2020 3:15am null Departed Physician/Provider Office Visit [facility] January 12, 2020 9:40am January 12, 2020 10:02am Hayde rios MD Departed Physician/Provider Office Visit [facility] March 03, 2020 7:35am March 03, 2020 7:42am Hayde Green MD [facility] 09, 2020 12:43pm MALACHI GILLIS MD Departed Emergency [facility] April 09, 2020 2:30pm April 09, 2020 6:34pm null Departed Physician/Provider Office Visit [facility] June 08, 2020 2:59pm June 08, 2020 3:01pm Lissette Smith Recent Diagnosis Onset Date Anorexia Anorexia Anorexia Anorexia Anorexia Anorexia Anorexia Anorexia Hypokalemia Hypotension Anxiety Anxiety Anxiety Eating disorder Body aches Sinus pain Assessments Diagnosis Onset Date Res olution Status Anorexia acute Anorexia acute Anorexia acute Anorexia acute Anorexia acute Anorexia acute Anorexia acute Anorexia acute Hypokalemia acute Hypotension acute Anxiety acute Anxiety acute Anxiety acute Eating disorder acute Body aches acute Sinus pain acute Family History Relationship Condition A ge at Onset Recorded Date/Time Not Specified Arthritis Unknown Hyperlipidemia Unknown Malignant neoplasm Unk nown Hypertension Unknown Not Specified Diabetes mellitus Unknown Malignant neoplasm Unk nown Hypertension Unknown Functional Status Observation Response Arturo e Recorded Functional Status Complete [place] December 28, 2019 7:03am Goals Goals may be documented in an alternate section. Immunizations No Immunization Information Available Mental Status Observation Response Arturo e Recorded Impairments No impairments or barriers April 09, 2020 2:30pm Cognitive Status Normal Cognition December 29, 2019 2:00pm Medical Equipment No Medical Equipment Information available Insurance Providers Guarantor CHARANJIT POST Address [address] [place] [address] Contact Info. 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 2, seeing [place], see here 2 weeks still not doing well, anorexia, anxiety, going to [facility] next week for counselin g program, see 2 weeks if not inpatient following with and assistant men's lacrosse coach, still recommend inpatient , they are looking into [facility], see 2 weeks. labs ordered will again look into inpatient facilities, sees next week, agreed to ensure b id, xanax at 1 mg tid, see 2 weeks anxiety fair, eating disorder discussed, she is looking into program in [place], need for inpatient advised seeing today, restart regular xanax, see 2 weeks, labs next visit, need to mo nitor weight and electrolytes anxiety, seeing sunday but discussed anorexia, xanax use, has been now franko morrow effexor, discussed fluids, gatorade for electrolytes, see 3 days, xanax as ordered Future Tests Future scheduled test information is unavailable Pending Tests Pending diagnostic test information is unavailable Future Visits Future appointment information is unavailable Referrals to Other Providers Reason for Referral Referral Start Date Provider Provider Conta ct Information Provider Address Hayde Green MD Work Phone: [address] [address] Hayde Green MD Work Phone: [address] [address] I34.0 - Nonrheumatic mitral (valve) insufficiency [facility] [address] [place] [id number] Future Procedures Future procedure information is unavailable Future Medications Future medication information is unavailable Patient Instructions Altered Mental Status (ED) Syncope (ED) Anorexia Nervosa (ED) Bulimia Nervosa (ED) Anxiety (GEN) Social History Smoking Status Status Date of Observation Current every day smoker April 092019 2:59pm Observation Status Date of Observation Not July 11, 2019 Observation Status Observation Response Arturo e of Response Smoking Status Current every day smoker April 09, 2020 2:59pm Alcohol Use Yes April 09, 2020 2:57pm Substance Use No Novembe r 2019 2:57pm Smoking start date 12/19/13 December 28, 2019 12:00pm Patient willing to set a quit date No December 28, 2019 12:00pm Assigned Sex Female Vital Signs Vital Reading Result Ref erence Range Collection Date/Time Height 66 [in_i] June 10, 2019 3:24am Weight 135.00 [lb_av] June 10, 2019 3:24am Height 66 [in_i] June 10, 2019 11:53am Weight 130.00 [lb_av] June 10, 2019 11:53am Body Temperature 98.2 [degF] 97.6-99.5 June 10, 2019 3:38pm Heart Rate 84 /min 60-100 June 10, 2019 3:38pm Respiratory rate 16 /min 12-June 10, 2019 3:38pm Oxygen saturation by Pulse oximetry 98 % 95- 100 June 10, 2019 3:38pm BP Systolic 134 mm[Hg] June 10, 2019 3:38pm BP Diastolic 80 mm[Hg] June 10, 2019 3:38pm Height 66 [in_i] June 13, 2019 11:35am Weight 134.00 [lb_av] June 13, 2019 11:35am Heart Rate 78 /min 60-100 June 13, 2019 11:35am Respiratory rate 12 /min -June 13, 2019 11:35am Oxygen saturation by Pulse oximetry 98 % 95- 100 June 13, 2019 11:35am BP Systolic 128 mm[Hg] June 13, 2019 11:35am BP Diastolic 62 mm[Hg] June 13, 2019 11:35am BMI (Body Mass Index) 21.6 kg/m2 June 13, 2019 11:35am Height 66 [in_i] June 16, 2019 8:43am Weight 134.00 [lb_av] June 16, 2019 8:43am BMI (Body Mass Index) 21.6 kg/m2 June 16, 2019 8:43am Height 66 [in_i] June 30, 2019 1:28pm Weight 134.00 [lb_av] June 30, 2019 1:28pm BMI (Body Mass Index) 21.6 kg/m2 June 30, 2019 1:28pm Height 66 [in_i] July 11, 2019 2:47pm Weight 127.00 [lb_av] July 11, 2019 2:47pm BMI (Body Mass Index) 20.5 kg/m2 July 11, 2019 2:47pm Height 66 [in_i] July 24, 2019 9:19am Weight 126.00 [lb_av] July 24, 2019 9:19am Heart Rate 68 /min 60-100 July 24, 2019 9:19am Respiratory rate 12 /min -July 24, 2019 9:19am Oxygen saturation by Pulse oximetry 99 % 95- 100 July 24, 2019 9:19am BP Systolic 104 mm[Hg] July 24, 2019 9:19am BP Diastolic 62 mm[Hg] July 24, 2019 9:19am BMI (Body Mass Index) 20.3 kg/m2 July 24, 2019 9:19am Height 66 [in_i] August 08, 2019 2:33pm Weight 129.00 [lb_av] August 08, 2019 2:33pm Heart Rate 68 /min 60-100 August 08, 2019 2:33pm Respiratory rate 12 /min 12-August 08, 2019 2:33pm Oxygen saturation by Pulse oximetry 98 % 95- 100 August 08, 2019 2:33pm BMI (Body Mass Index) 20.8 kg/m2 August 08, 2019 2:33pm Height 66 [in_i] August 21, 2019 2:42pm Weight 121.00 [lb_av] August 21, 2019 2:42pm Body Temperature 97.0 [degF] 97.6-99.5 August 21, 2019 2:42pm Heart Rate 70 /min 60-100 August 21, 2019 2:42pm Oxygen saturation by Pulse oximetry 94 % 95- 100 August 21, 2019 2:42pm BMI (Body Mass Index) 19.5 kg/m2 August 21, 2019 2:42pm Height 66 [in_i] October 02, 2019 2:22pm Weight 121.00 [lb_av] October 02, 2019 2:22pm BMI (Body Mass Index) 19.5 kg/m2 October 02, 2019 2:22pm Height 66 [in_i] October 16, 2019 2:06pm Weight 133.00 [lb_av] October 16, 2019 2:06pm BMI (Body Mass Index) 21.4 kg/m2 October 16, 2019 2:06pm Height 66 [in_i] October 30, 2019 2:35pm Weight 120.00 [lb_av] October 30, 2019 2:35pm Heart Rate 68 /min 60-100 October 30, 2019 2:35pm Respiratory rate 12 /min -October 30, 2019 2:35pm Oxygen saturation by Pulse oximetry 100 % 95-100 October 30, 2019 2:35pm BP Systolic 122 mm[Hg] October 30, 2019 2:35pm BP Diastolic 74 mm[Hg] October 30, 2019 2:35pm BMI (Body Mass Index) 19.3 kg/m2 October 30, 2019 2:35pm Height 66 [in_i] November 14, 2019 1:29pm Weight 122.00 [lb_av] November 14, 2019 1:29pm Heart Rate 68 /min 60-100 November 14, 2019 1:29pm Respiratory rate 12 /min 12-November 14, 2019 1:29pm Oxygen saturation by Pulse oximetry 98 % 95- 100 November 14, 2019 1:29pm BP Systolic 120 mm[Hg] November 14, 2019 1:29pm BP Diastolic 60 mm[Hg] November 14, 2019 1:29pm BMI (Body Mass Index) 19.7 kg/m2 November 14, 2019 1:29pm Height 66 [in_i] November 28, 2019 1:22pm Weight 114.00 [lb_av] November 28, 2019 1:22pm Heart Rate 76 /min 60-100 November 28, 2019 1:22pm Respiratory rate 12 /min -November 28, 2019 1:22pm Oxygen saturation by Pulse oximetry 98 % 95- 100 November 28, 2019 1:22pm BP Systolic 124 mm[Hg] November 28, 2019 1:22pm BP Diastolic 60 mm[Hg] November 28, 2019 1:22pm BMI (Body Mass Index) 18.3 kg/m2 November 28, 2019 1:22pm Height 66 [in_i] December 13, 2019 1:56pm Weight 130.00 [lb_av] December 13, 2019 1:56pm Body Temperature 98.9 [degF] 97.6-99.5 December 13, 2019 4:57pm Heart Rate 59 /min 60-100 December 13, 2019 4:57pm Respiratory rate 18 /min -December 13, 2019 4:57pm Oxygen saturation by Pulse oximetry 99 % 95- 100 December 13, 2019 4:57pm BP Systolic 141 mm[Hg] December 13, 2019 4:57pm BP Diastolic 85 mm[Hg] December 13, 2019 4:57pm Height 66 [in_i] December 24, 2019 9:15am Weight 124.00 [lb_av] December 24, 2019 9:15am Heart Rate 77 /min 60-100 December 24, 2019 9:15am Respiratory rate 12 /min 12-December 24, 2019 9:15am Oxygen saturation by Pulse oximetry 100 % 95-100 December 24, 2019 9:15am BP Systolic 96 mm[Hg] December 24, 2019 9:15am BP Diastolic 64 mm[Hg] December 24, 2019 9:15am BMI (Body Mass Index) 20.0 kg/m2 December 24, 2019 9:15am Height 66 [in_i] December 30, 2019 8:29am Weight 115.00 [lb_av] December 30, 2019 8:29am Body Temperature 97.9 [degF] 97.6-99.5 December 30, 2019 7:50am Heart Rate 70 /min 60-100 December 30, 2019 7:50am Respiratory rate 18 /min 12-December 30, 2019 8:10am Oxygen saturation by Pulse oximetry 98 % 95- 100 December 30, 2019 8:10am BP Systolic 121 mm[Hg] December 30, 2019 7:50am BP Diastolic 78 mm[Hg] December 30, 2019 7:50am BMI (Body Mass Index) 18.6 kg/m2 December 30, 2019 8:29am Height 66 [in_i] December 31, 2019 10:21am Weight 130.00 [lb_av] December 31, 2019 10:21am Heart Rate 64 /min 60-100 December 31, 2019 10:21am Respiratory rate 12 /min -December 31, 2019 10:21am Oxygen saturation by Pulse oximetry 98 % 95- 100 December 31, 2019 10:21am BP Systolic 104 mm[Hg] December 31, 2019 10:21am BP Diastolic 60 mm[Hg] December 31, 2019 10:21am BMI (Body Mass Index) 20.9 kg/m2 December 31, 2019 10:21am Height 67 [in_i] January 10, 2020 9:20pm Weight 110.00 [lb_av] January 10, 2020 9:20pm Body Temperature 98.4 [degF] 97.6-99.5 January 11, 2020 3:45am Heart Rate 74 /min 60-100 January 11, 2020 3:45am Respiratory rate 16 /min 12-January 11, 2020 3:45am Oxygen saturation by Pulse oximetry 99 % 95- 100 January 11, 2020 3:45am BP Systolic 133 mm[Hg] January 11, 2020 3:45am BP Diastolic 89 mm[Hg] January 11, 2020 3:45am Heart Rate 80 /min 60-100 January 12, 2020 11:17am Respiratory rate 12 /min -January 12, 2020 11:17am BP Systolic 130 mm[Hg] January 12, 2020 11:17am BP Diastolic 80 mm[Hg] January 12, 2020 11:17am Height 66 [in_i] April 09, 2020 2:59pm Weight 160.00 [lb_av] April 09, 2020 2:59pm Body Temperature 98.5 [degF] 97.6-99.5 April 09, 2020 2:30pm Heart Rate 90 /min 60-100 April 09, 2020 6:27pm Respiratory rate 18 /min -April 09, 2020 6:27pm Oxygen saturation by Pulse oximetry 98 % 95- 100 April 09, 2020 6:27pm BP Systolic 126 mm[Hg] April 09, 2020 6:27pm BP Diastolic 77 mm[Hg] April 09, 2020 6:27pm
--- OUTSIDE RECORDS SUMMARY | 2020-07-16 15:52 | CCD ---
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 Name Role Phone Dae Aragon Unavailable PROBLEMS Type Condition ICD9-CM Code [id number] Code Onset Dates Condition S tatus SNOMED Code Notes Problem Female infertility, unspecified N97.9 Active 2031613 Problem Depressive disorder, not elsewhere classified 311 Active 16100696 Problem Polycystic ovarian syndrome E28.2 Active 6987 8008 Problem Generalized anxiety disorder F41.1 Active 218 98938 Problem Allergic rhinitis J30.9 Active 65767031 Problem Migraine without status migr ainosus, not intractable, unspecified migraine type G43.909 Active 06094512 Problem Vitamin D deficiency E55.9 Active 50429117 Problem Constipation, unspecified constipation type K59.00 Active 59079428 Problem Myalgia M79.1 Active 35087234 Problem 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 Active 775416367 Problem Lumbar facet arthropathy M46.96 Active 6091475 08 Problem Fibromyalgia M79.7 Active 261695311 Problem Cervicalgia M54.2 Active 92461627 Problem Other chronic pain G89.29 Active 90967208 Problem Facet arthropathy, cervical M12.88 Active 4275 74629 Problem Active Problem Spondylosis of lumbar region without myelopathy or radiculopathy M47.816 Active 27971851 Problem Chronic migraine G43.709 Active 60170479 Problem Chronic migraine w/o aura w/o status migrainosus , not intractable G43.709 Active 306726408 Problem Myalgia, other site M79.18 Active 25507390 ALLERGIES Allergen (clinical drug ingredient) Drug/Non Drug Allergy do cumented on EMR Reaction Allergy Type Onset Date Status DERMABOND Rash Non Drug Allergy 03/30/2020 Active Environmental Stuffy nose, itchy eyes, sometimes hives Non Drug Allergy Active acetaminophen Tylenol([facility] Code:[address]-21) 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 Drug Allergy Active ENCOUNTERS from 1983 to 2020-04-29 Encounter Location Date Provider Diagnosis [facility] [address] [place] [id number] Apr, Dae Aragon Chronic migraine G43.709 IMMUNIZATIONS Vaccine Route Administration Date Status Influenza [...] College Language: Question Answer Notes Languages spoken: Albanian Islam: Question Answer Notes Islam 13 [employer] Sexual Hx: Question Answer Notes Had sex [...] REASON FOR REFERRAL No Information VITAL SIGNS Weight 164.6 lbs Apr, Height 66 in Apr, BMI 26.56 kg/m2 Apr, Heart Rate 85 /min Apr, Respiratory Rate 16 /min Apr, Temperature 98.6 degrees Fahrenheit Apr, Oximetry 98% Apr, Blood pressure systolic 118 mm Hg Apr, Blood pressure diastolic 74 mm Hg Apr, MEDICATIONS Medication SIG (Take, Route, Frequency, Duration) Notes Start Da te End Date Status Calcium + D 600-200 MG-UNIT 1 tablet Orally Once a day for 30 day(s) Active Diclofenac Potassium 50 MG 1 tablet Orally Twice a day for 30 da y(s) Jun, Not-Taking Clonidine HCl 0.3 MG 2 tablets Orally Once a day Active MetFORMIN HCl ER 500 mg 3 tablet Orally Daily at bedtime for 90 day(s) Jan, Active TraZODone HCl 50 MG 1 tablet at bedtime as neede d Orally Once a day for 30 day(s) Active Albuterol Sulfate HFA 108 (90 Base) MCG/ACT 1 puff as needed Inhalation every 4 hrs Active [place] 5-325 MG 1 tablet as needed Orally q8h TID MDD3 for 30 Da ys Mar, Active Linzess 290 MCG 1 capsule Orally Once a day May, Active Singulair 10 MG 1 tablet in the evening Orally Once a day Not-Taking Selegiline HCl 5 MG 1 tablet with breakfast and lunch Orally Twice a day Not-Taking Vitamin C 500 mg 1 tablet Orally Once a day for 90 day(s) Not-Taking Gabapentin 300 MG 1 capsule Orally bid Active Xanax 1 mg 1 tablet Orally BID Activ e Probiotic 1 capsule Orally Daily No t-Taking Albuterol every 4 hours as needed Not-Taking ALPRAZolam ER 2 MG 1 tablet in the morning Orally Once a day Active Ex-Lax 15 MG 1 tablet at bedtime as needed Orally Daily Active Benadryl 25 mg oral 3 tablets as directed Active Tramadol HCl 50 MG 1/2 - 1 tablet Orally ever y 6 -8 hrs prn pain for 30 day(s) Nov, Not-Taking Venlafaxine HCl ER 75 MG Orally Once a day Active Colace 100 MG 1 capsule as needed Orally bid for 30 day(s) Jul, Not-Taking BusPIRone HCl 15 MG 1 tablet Orally Twice a day Active PROCEDURES from 1983 to 2020-04-29 Procedure Date Ordered Result Body Site Medication: Valium Tab 10mg Orally (Diazepam) 2020-04-26 N/ A Medication: Oxycodone HCL Tab 10mg Orally 2020-04-26 N/A RESULTS No Results REASON FOR VISIT Botox injections to the head, neck and shoulder areas MEDICAL (GENERAL) HISTORY Type Description Date Medical [...] with finding of minimal endometriosis Surgical History [place] tooth Surgical History Rt bunionectomy 07/2009 Surgical History Laser rx for benigh neoplasm eyelid liam hyun [id number] Surgical History septoplasty, adenoidectomy, Balloon Sinu plasty 08/2016 Surgical History invitro fert cycles with egg extractions [id number] Hospitalization History [place] 2006 Hospitalization History in childhood lung reason Hospitalization History [place], [place] For Eating Disorder 12/08 19-02/2020 Hospitalization History Hypotension 11/2019 Goals Section No Information Health Concerns No Information MEDICAL EQUIPMENT No Information MENTAL STATUS No Information FUNCTIONAL STATUS No Information ASSESSMENTS No Information PLAN OF TREATMENT Next Appt Details Follow up with COSMETOLOGY PROFESSOR Reason:Post Botox inje ctions to head, neck and shoulders area Provider Name:Dae Aragon, 2020-05-25 01:30:00 PM, [address] [place] [address], [phone], Provider Name:Nereyda Kat, 2020-06-08 01 :30:00 PM, [address] [place] [address], [phone], Follow Up:Follow up with [facility] Botox injections to head, neck and shoulders area Insurance Providers Payer Name Payer Address Payer Phone Insured Name Patient Relati onship to Insured Coverage Start Date Coverage End Date [place] [phone] [phone] CHARANJIT GRAVES self
--- OUTSIDE RECORDS SUMMARY | 2020-07-16 15:52 | CCD ---
Author Author [facility] Organization [facility] Address Unknown Phone Unavailable Care Team Providers Care Jamb Cutter Name Role Phone Dae Aragon Unavailable PROBLEMS Type Condition ICD9-CM Code [id number] Code Onset Dates Condition S tatus SNOMED Code Notes Problem Female infertility, unspecified N97.9 Active 0443752 Problem Depressive disorder, not elsewhere classified 311 Active 20549448 Problem Polycystic ovarian syndrome E28.2 Active 6987 8008 Problem Generalized anxiety disorder F41.1 Active 218 83535 Problem Allergic rhinitis J30.9 Active 63445097 Problem Migraine without status migr ainosus, not intractable, unspecified migraine type G43.909 Active 29684552 Problem Vitamin D deficiency E55.9 Active 07081426 Problem Constipation, unspecified constipation type K59.00 Active 81119433 Problem Myalgia M79.1 Active 54682950 Problem 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 Active 790598509 Problem Lumbar facet arthropathy M46.96 Active 0376982 08 Problem Fibromyalgia M79.7 Active 601801838 Problem Cervicalgia M54.2 Active 74878156 Problem Other chronic pain G89.29 Active 56600676 Problem Facet arthropathy, cervical M12.88 Active 4275 66315 Problem Spondylosis of lumbar region without myelopathy or radiculopathy M47.816 Active 20151457 Problem Chronic migraine G43.709 Active 33029584 Problem Chronic migraine w/o aura w/o status migrainosus , not intractable G43.709 Active 005204781 Problem Myalgia, other site M79.18 Active 18380424 ALLERGIES Allergen (clinical drug ingredient) Drug/Non Drug Allergy do cumented on EMR Reaction Allergy Type Onset Date Status DERMABOND Rash Non Drug Allergy 03/30/2020 Active Environmental Stuffy nose, itchy eyes, sometimes hives Non Drug Allergy Active acetaminophen Tylenol([facility] Code:[address]-25) 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 Drug Allergy Active ENCOUNTERS from 1985 to 2020-04-24 Encounter Location Date Provider Diagnosis [facility] [address] [place] [id number] Apr, Dae Aragon IMMUNIZATIONS Vaccine Route Administration Date [...] College Language: Question Answer Notes Languages spoken: Syriac Religious: Question Answer Notes Religious 13 Christianity Sexual Hx: Question Answer Notes Had sex [...] of tobacco use and urged to quit: 04/23/2020 How many cigarettes a day do you [...] Daily at bedtime for 90 day(s) Jan, Not-Taking ALPRAZolam ER 2 MG 1 tablet in the morning Orally Once a day Active Vitamin C 500 mg 1 tablet Orally Once a day for 90 day(s) Not-Taking BusPIRone HCl 15 MG 1 tablet Orally Twice a day Active Gabapentin 300 MG 1 capsule Orally bid Active Calcium + D 600-200 MG-UNIT 1 tablet Orally Once a day for 30 day(s) Active Benadryl 25 mg oral 3 tablets as directed Active Albuterol Sulfate HFA 108 (90 Base) MCG/ACT 1 puff as needed Inhalation every 4 hrs Active Diclofenac Potassium 50 MG 1 tablet Orally Twice a day for 30 da y(s) Jun, Not-Taking Clonidine HCl 0.3 MG 2 tablets Orally Once a day Active Ex-Lax 15 MG 1 tablet at bedtime as needed Orally Daily Active Tramadol HCl 50 MG 1/2 - 1 tablet Orally ever y 6 -8 hrs prn pain for 30 day(s) Nov, Not-Taking TraZODone HCl 50 MG 1 tablet at bedtime as neede d Orally Once a day for 30 day(s) Active Venlafaxine HCl ER 75 MG Orally Once a day Active Xanax 1 mg 1 tablet Orally BID Activ e Singulair 10 MG 1 tablet in the evening Orally Once a day Not-Taking Probiotic 1 capsule Orally Daily No t-Taking Albuterol every 4 hours as needed Not-Taking Colace 100 MG 1 capsule as needed Orally bid for 30 day(s) Jul, Not-Taking Webster 5-325 MG 1 tablet as needed Orally q8h TID MDD3 for 30 Da ys Mar, Active Linzess 290 MCG 1 capsule Orally Once a day May, Active Selegiline HCl 5 MG 1 tablet with breakfast and lunch Orally Twice a day Not-Taking PROCEDURES No Information RESULTS No Results REASON FOR VISIT PAT MEDICAL (GENERAL) HISTORY Type Description Date Medical [...] with finding of minimal endometriosis Surgical History [place] tooth Surgical History Rt bunionectomy 07/2009 Surgical History Laser rx for benigh neoplasm eyelid liam hyun 110313 Surgical History septoplasty, adenoidectomy, Balloon Sinu plasty 08/2016 Surgical History invitro fert cycles with egg extractions [phone] Hospitalization History [place] 2006 Hospitalization History in childhood lung reason Hospitalization History [place], [place] For Eating Disorder 12/08 19-02/2020 Hospitalization History Hypotension 11/2019 Goals Section No Information Health Concerns No Information MEDICAL EQUIPMENT No Information MENTAL STATUS No Information FUNCTIONAL STATUS No Information ASSESSMENTS No Information PLAN OF TREATMENT Next Appt Details Provider Name:Dae Aragon, 2020-04-26 02:00:00 PM, [address] [place] [address], [phone], Provider Name:Dae Aragon, 2020-05-25 01:30:00 PM, [address] [place] [address], [phone], Provider Name:Nereyda Kat, 2020-06-08 01 :30:00 PM, [address] [place] [address], [phone], Insurance Providers Payer Name Payer Address Payer Phone Insured Name Patient Relati onship to Insured Coverage Start Date Coverage End Date [place] [phone] CHARANJIT GRAVES
[2020-07-16] MEDS ORDERED: GABA-282 (16:07)
[2020-07-16] MEDS ORDERED: VITA50005 (16:07)
[2020-07-16] MEDS ORDERED: ALPR1TAB3 (16:07)
[2020-07-16] MEDS ORDERED: CLON0.3T (16:07)
[2020-07-16] MEDS ORDERED: VENL75CA47 (16:07)
[2020-07-16] MEDS ORDERED: LINZ290C (16:07)
[2020-07-16] MEDS ORDERED: HYDR-3713 (16:07)
[2020-07-16] MEDS ORDERED: ALPR2TAB5 (16:07)
== END 2020-07-16 16:55 | disposition home or self-care (01) ==
LOC: M ED 15:45
DX: F33.9 Major depressive disorder, recurrent, unspecified (principal); M79.10 Myalgia, unspecified site; Z88.8 Allergy status to other drugs, medicaments and biological substances; Z91.048 Other nonmedicinal substance allergy status; J30.89 Other allergic rhinitis
CPT/HCPCS: 99284; J3301

== ENCOUNTER → 2020-07-16 | Outpatient (CLI) | payer OTHER ==
[~2020-07-16] MED LIST changes: +ALPR1TAB3; +ALPR2TAB5; -BOTOX THERAPEUTIC 100 UNIT VIAL (J0585 PER 1 UNIT) IM ONE; +BUPIVACAINE HCL 0.25% 10ML VIAL As Ordered ONE; +BUPIVACAINE HCL 0.25% 30ML VIAL As Ordered ONE; +CLON0.3T; +GABA-282; +HYDR-3713; +LINZ290C; +NORCO, ANEXSIA 5/325MG TABLET (HYDROcodone/ACETAMINOPHEN) As Ordered ONE; +TRIAMCINOLONE ACETONIDE SUSP 40 MG/ML VIAL (J3301) As Ordered ONE; +VENL75CA47; +VITA50005; -oxyCODONE 5MG TAB As Ordered ONE
--- NOTE | 2020-07-20 00:55 | ECWPNPC ---
PATIENT NAME: CHARANJIT POST : 1985 GENDER: FEMALE VISIT DATE: 07/16/2020 DISCHARGE DATE: 07/16/20 1504 VISIT LOCKED DATE TIME: PHYSICIAN: RELL WOO MD RESOURCE: RELL WOO MD REASON FOR APPOINTMENT 1. TRIGGER POINT INJECTIONS BILATERAL LOW BACK HISTORY OF PRESENT ILLNESS DEPRESSION SCREENING: PHQ-9 LITTLE INTEREST OR PLEASURE IN DOING THINGSNEARLY EVERY DAY FEELING DOWN, DEPRESSED, OR HOPELESSNEARLY EVERY DAY TROUBLE FALLING OR STAYING ASLEEP, OR SLEEPING TOO MUCHMORE THAN HALF THE DAYS FEELING TIRED OR HAVING LITTLE ENERGYMORE THAN HALF THE DAYS POOR APPETITE OR OVEREATING NEARLY EVERY DAY FEELING BAD ABOUT YOURSELF-OR THAT YOU ARE A FAILURE OR HAVE LET YOURSELF OR YOUR FAMILY DOWN NOT AT ALL TROUBLE CONCENTRATING ON THINGS, SUCH READING THE NEWSPAPER OR WATCHING TELEVISION NEARLY EVERY DAY MOVING OR SPEAKING SO SLOWLY THAT OTHER PEOPLE COULD HAVE NOTICED. OR THE OPPOSITE- BEING SO FIDGETY OR RESTLESS THAT YOU HAVE BEEN MOVING AROUND A LOT MORE THAN USUALMORE THAN HALF THE DAYS THOUGHTS THAT YOU WOULD BE BETTER OFF , OR OF HURTING YOURSELF IN SOME WAY?MORE THAN HALF THE DAYS(CONSIDER SUICIDE ASSESSMENT RISK) TOTAL SCORE:20 INTERPRETATIONSEVERE DEPRESSION PATIENT REPORTED TO THIS MILL SUPERVISOR THAT SHE WAS RECENTLY DISCHARGED FROM A PSYCHIATRIC FACILITY FOR AN EATING DISORDER AND THAT AFTER SEEING HER WEIGHT TODAY AT THE CLINIC, SHE IS FEELING THAT SHE MAY BE UNSAFE TO GO HOME. THIS MILL SUPERVISOR ASKED THE PATIENT TO ELABORATE AND ASKED IF SHE FELT SHE WOULD HARM HERSELF. THE PATIENT STATED THAT SHE IS HAVING SUICIDAL THOUGHTS BUT DOES NOT CURRENTLY HAVE A PLAN. SHE STATES THAT HER DEPRESSION IS WORSENING HOWEVER SHE HAS AN APPOINTMENT WITH DR. ROMERO ON SUNDAY BUT FELT SHE MAY NEED HELP SOONER. THIS MILL SUPERVISOR THEN PERFORMED A PHQ9 DEPRESSION SCREENING. THE SCREENING WAS POSITIVE FOR SEVERE DEPRESSION. THIS MILL SUPERVISOR CONFIRMED THAT THE PATIENT DID NOT WISH TO HARM HERSELF AND LEFT THE ROOM TO IMMEDIATLEY NOTIFY DR. WOO AND BOAT LOADER Richard WALLACE. DR. WOO THEN SPOKE WITH THE PATIENT ALONG WITH THIS MILL SUPERVISOR AND STATED THAT IT WOULD BE THE SAFEST FOR THE PATIENT TO BE SEEN IN THE EMERGENCY ROOM FOLLOWING HER PROCEDURE TO ENSURE HER SAFETY. THE PATIENT WAS TEARFUL BUT AGREEABLE AND ASKED THIS MILL SUPERVISOR TO ACCOMPANY HER AND ASSIST IN EXPLAINING THE PATIENT'S CURRENT FEELINGS. DR. WOO AND THIS MILL SUPERVISOR AGREED THIS WOULD BE OKAY. DR. WOO STATED IT WOULD BE OKAY TO MOVE FORWARD WITH THE PRESEDATE MEDICATION AND PERFORMING THE PROCEDURE TO ALLEVIATE THE PATIENT'S PAIN. THE PATIENT WAS AGREEABLE TO GOING TO THE EMERGENCY ROOM FOLLOWING THE VISIT TO BE SEEN. THE PATIENT TEXTED HER PRIOR TO THE PROCEDURE TO INFORM HIM OF THE SITUATION. THE PATIENT'S , LAY, THEN CALLED THE CLINIC AND ASKED TO COME SEE HER. PER MANAGEMENT, THIS WAS CLEARED. FOLLOWING THE PROCEDURE, THE PATIENT'S LAY ACCOMPANIED HER. THIS MILL SUPERVISOR WILL ACCOMPANY THE PATIENT TO THE EMERGENCY ROOM VIA WHEELCHAIR. Gabrielle LEZAMA RN PATIENT ACCOMPANIED TO ED VIA WHEELCHAIR WITH SHERRY TINAJERO. LAY STATED HE WOULD GO TO WAITING ROOM. THIS MILL SUPERVISOR SPOKE WITH ED CHARGE NURSE AND PATIENT WAS BROUGHT TO THE BEHAVIORAL HEALTH SECTION OF ED. REPORT GIVEN TO NURSE IN THIS DEPARTMENT. SHERRY PHELPS WAITED WITH PATIENT UNTIL SHE WAS ROOMED. THIS MILL SUPERVISOR CALLED LAY TO UPDATE HIM ON SITUATION. Gabrielle LEZAMA RN. GENERAL: -. FALL RISK SCREENING: SCREENING :NO FALLS REPORTED IN THE LAST YEAR PAIN SCREENING: PATIENT HAS A COMPLAINT OF ACUTE OR CHRONIC PAIN :YES LOCATION OF PAIN:LOW BACK INTENSITY OF PAIN (SCALE OF 1 TO 10):4 AVERAGE 4-6 WHAT DOES YOUR PAIN FEEL LIKE:ACHING, CONTINOUS, TENDER, THROBBING, SORE DURATION:CONTINOUS, CONSTANT, AWAKENS FROM SLEEP PAIN IS INCREASED BY:ACTIVITIES SLEEPING ON HER STOMACH PAIN IS DECREASED BY:OTHERS REST, HEAT PAIN HAS INTERFERED WITH THE FOLLOWING: MAKES EVERYTHING DIFFICULT NURSING NOTE: REPORT RECEIVED FROM Gabrielle LOPEZ RN REGARDING PT REPORT OF SUICIDAL THOUGHTS WITHOUT PLAN. DISCUSSED WITH DR. WOO. Aranza CHRISTIAN NOTIFIED AT APPROXIMATELY 1405. Richard WALLACE RN 07/16/20 1507. PAIN CENTER INTAKE QUESTIONS: DO YOU HAVE A HISTORY OF MRSA? :NO DO YOU TAKE A BLOOD THINNERS? :NO DO YOU HAVE ANY BLEEDING DISORDERS? :NO ANY NEW NUMBNESS OR WEAKNESS IN YOUR LEGS OR ARMS? :NO ANY PACEMAKER,DEFIBRILLATOR, OR DORSAL COLUMN STIMULATOR? :NO DO YOU HAVE ANY RASHES OR OPEN SORES? :NO ARE YOU ALLERGIC TO IV DYE? :NO ARE YOU DIABETIC? :NO ON METFORMIN FOR PCOS ANY NEW PROBLEMS WITH YOUR MEDICATIONS? :NO HAVE YOU RECEIVED A VACCINE IN THE PAST 30 DAYS? :NO DO YOU PLAN TO RECEIVE A VACCINE IN THE NEXT 21 DAYS? :NO DO YOU TAKE ANY IMMUNOSUPPRESSIVE MEDICATIONS? :NO ANY HISTORY OF SEIZURES? :NO ANY HISTORY OF CARDIAC ISSUES OR EVENTS? :NO DO YOU HAVE SLEEP APNEA? :NO ANY RECENT HEAD INJURY? :NO DO YOU HAVE ANY NEW INFECTIONS? :NO IS THERE A CHANCE YOU COULD BE ? :NO ARE YOU BREAST FEEDING? :NO WHEN DID YOU LAST EAT? : 0000 07/16/20 WHEN DID YOU LAST DRINK? : 1000 WHAT DID YOU LAST DRINK? : WHITE GRAPE JUICE NAME OF PERSON DRIVING YOU HOME? : LAY DO YOU HAVE ANY OTHER QUESTIONS OR CONCERNS? : NONE CURRENT MEDICATIONS TAKING HYDROCODONE-ACETAMINOPHEN 5-325 MG TABLET 1 TABLET NEEDED ORALLY Q8H PRN MDD3, NOTES: 07/15/20 2000 TAKING CALCIUM + D 600-200 MG-UNIT TABLET 1 TABLET ORALLY ONCE A DAY TAKING CLONIDINE HCL 0.3 MG TABLET 1 TAB ORALLY ONCE A DAY, NOTES: 07/15/20 2200 TAKING BENADRYL 25 MG ORAL 3 TABLETS DIRECTED TAKING XANAX 1 MG TABLET 1 TABLET ORALLY BID, NOTES: 07/14/20 TAKING ALPRAZOLAM ER 2 MG TABLET EXTENDED RELEASE 24 HOUR 1 TABLET IN THE MORNING ORALLY ONCE A DAY, NOTES: 07/15/20 0800 TAKING GABAPENTIN 300 MG CAPSULE 1 CAPSULE ORALLY BID TAKING LINZESS 290 MCG CAPSULE 1 CAPSULE ORALLY ONCE A DAY TAKING ALBUTEROL SULFATE HFA 108 (90 BASE) MCG/ACT AEROSOL SOLUTION 1 PUFF NEEDED INHALATION EVERY 4 HRS TAKING BUSPIRONE HCL 15 MG TABLET 1 TABLET ORALLY TWICE A DAY TAKING TRAZODONE HCL 50 MG TABLET 1 TABLET AT BEDTIME NEEDED ORALLY ONCE A DAY, NOTES: OVER A WEEK TAKING METFORMIN HCL ER 500 MG TABLET EXTENDED RELEASE 24 HOUR 1 TAB ORALLY DAILY AT BEDTIME TAKING COLACE 100 MG CAPSULE 1 CAPSULE NEEDED ORALLY BID TAKING VITAMIN C 500 MG TABLET 1 TABLET ORALLY ONCE A DAY NOT-TAKING EX-LAX 15 MG TABLET 1 TABLET AT BEDTIME NEEDED ORALLY DAILY NOT-TAKING VENLAFAXINE HCL ER 75 MG CAPSULE EXTENDED RELEASE 24 HOUR ORALLY ONCE A DAY NOT-TAKING PROBIOTIC TABLET DELAYED RELEASE 1 CAPSULE ORALLY DAILY NOT-TAKING SELEGILINE HCL 5 MG TABLET 1 TABLET WITH BREAKFAST AND LUNCH ORALLY TWICE A DAY NOT-TAKING SINGULAIR 10 MG TABLET 1 TABLET IN THE EVENING ORALLY ONCE A DAY NOT-TAKING TRAMADOL HCL 50 MG TABLET 1/2 - 1 TABLET ORALLY EVERY 6 -8 HRS PRN PAIN NOT-TAKING DICLOFENAC POTASSIUM 50 MG TABLET 1 TABLET ORALLY TWICE A DAY, NOTES: NONE RECENT-DIDN'T HELP MEDICATION LIST REVIEWED AND RECONCILED WITH THE PATIENT PAST MEDICAL HISTORY SCOLIOSIS - MINIMAL DEXTRO-CONVEX CURVATURE - SCOLIOSIS SERIES ON 01/2009 ENDOMETRIOSIS ON LUPRON FOR INTERMITT 2 YEARS/ S/P 2 LASER LAPROSCOPIES OSTEOPOROSIS/OSTEOPENIA DUE TO LUPRON RX/ DEXA SCAN ON 03/2009 LUMBAR SPINE NORMAL BMD FOR AGE OCD/ SOCIAL ANXIETY/ BULEMIA NERVOSA PURGING TYPE/ DEPRESSIVE DISORDER/ ANXIETY PSORIASIS/SEBORRHEIC DERMATITIS RIGHT HALLUX VALGUS DEFORMITY S/P RT BUNIONECTOMY 2010 GANGLION LEFT HAND- W/ NL RADIOGRAPH S/P SURGICALLY REMOVED BULIMIA NERVOSA PURGING TYPE POLYCYSTIC OVARIES MIGRAINE ALLERGIC RHINITIS SINUS INFECTION MDD CHRONIC PTSD LOW BACK PAIN ALLERGIES ENVIRONMENTAL: STUFFY NOSE, ITCHY EYES, SOMETIMES HIVES TYLENOL: CONTRAINDICATION DUE TO GENE MUTATION - CONTRAINDICATION DERMABOND: RASH - ONSET DATE 03/30/2020 SOY: RASH SOCIAL HISTORY GENERAL: TOBACCO USE ARE YOU A:CURRENT SMOKER ARE YOU INTERESTED IN QUITTING?THINKING ABOUT QUITTING HAS CUT DOWN ON # OF CIGS/DAY COUNSELED THE PATIENT ON SMOKING CESSATION, EDUCATION [id number]/10/2020 HOW MANY CIGARETTES A DAY DO YOU SMOKE?5 OR LESS HOW SOON AFTER YOU WAKE UP DO YOU SMOKE YOUR FIRST CIGARETTE?AFTER 60 MIN HOW OFTEN DO YOU SMOKE CIGARETTES?SOME DAYS, BUT NOT EVERY DAY PATIENT COUNSELED ON THE DANGERS OF TOBACCO USE AND URGED TO QUIT:07/15/2020 ADDITIONAL FINDINGS: TOBACCO USER STATES CAN GO A LONG TIME WITHOUT SMOKING WITH NO SIDE EFFECTS SMOKING CESSATION INFORMATION GIVEN03/30/2020 LATEX QUESTIONNAIRE LATEX ALLERGY : HAVE YOU EVER DEVELOPED ANY TYPE OF REACTION AFTER HANDLING LATEX PRODUCTS SUCH RUBBER GLOVES, CONDOMS, DIAPHRAGMS, BALLOONS, SOCKS, OR UNDERWEAR?NO LATEX ALLERGY : HAVE YOU EVER DEVELOPED ANY TYPE OF REACTION DURING OR AFTER DENTAL APPOINTMENT, VAGINAL/RECTAL EXAMINATION, SURGICAL PROCEDURE, OR ANY OTHER EXPOSURE?NO DATE ASKED : 04/26/2020 LATEX RISK : HAVE YOU EVER HAD ANY DIFFICULTY BREATHING OR HIVES AFTER EATING OR HANDLING ANY FRUITS, OR VEGETABLES; SUCH KIWI, BANANAS, STONE FRUITS, OR CHESTNUTSNO LATEX RISK : DO YOU HAVE A PREVIOUS PERSONAL HISTORY OF MORE THAN NINE SURGERIES, SPINA BIFIDA, OR REPEATED CATHERIZATIONS? NO LATEX RISK : ARE YOU FREQUENTLY EXPOSED TO LATEX PRODUCTS IN YOUR OCCUPATION?NO ALCOHOL SCREENING DID YOU HAVE A DRINK CONTAINING ALCOHOL IN THE PAST YEAR?YES HOW MANY DRINKS DID YOU HAVE ON A TYPICAL DAY WHEN YOU WERE DRINKING IN THE PAST YEAR?1 OR 2 (0 POINTS) HOW OFTEN DID YOU HAVE A DRINK CONTAINING ALCOHOL IN THE PAST YEAR?MONTHLY OR LESS (1 POINT) POINTS1 INTERPRETATIONNEGATIVE RECREATIONAL DRUG USE DRUG USE?NO CAFFEINE CAFFEINE USE?YES COFFEE SODA SEXUAL HX HAD SEX IN THE LAST 12 MONTHS (VAGINAL, ORAL, OR ANAL)?YES WITHMEN ONLY PREVENTION STRATEGIES DISCUSSED:OTHER USE PROTECTION?NO LMP:09/29/2016 HAVE YOU EVER HAD AN STD?NO HIV / HEP-C SCREENING HIV TEST OFFERED TO PATIENT:YES DATE OFFERED:05/29/2016 TEST ACCEPTED:NO HEP-C TEST OFFERED TO PATIENT:NO N/A REASON:PATIENT DECLINED BUDDHIST [id number] JUDAISM LANGUAGE LANGUAGES SPOKEN:RWANDAN EDUCATION LEVEL OF EDUCATION:COLLEGE LEARNING BARRIERS / SPECIAL NEEDS CHANGE FROM LAST VISIT?NO BARRIERS TO LEARNING?NO HEARING IMPAIRED?NO VISION IMPAIRED?YES COGNITIVELY IMPAIRED?NO :CORRECTIVE LENSES READINESS TO LEARN?YES LEARNING PREFERENCES?YES :HANDOUTS, DEMONSTRATION/VERBAL INSTRUCTION LEARNING CAPABILITIES PRESENT?YES EMOTIONAL BARRIERS?NO SPECIAL DEVICES?NO FRONT DESK CLERK NEEDED?NO DOMESTIC VIOLENCE DO YOU FEEL SAFE IN YOUR ENVIRONMENT?YES DIET: REGULAR. EXERCISE: WALKS. MARITAL STATUS: . - PFS REFERRAL NEEDED?NO CLERGY REFERRAL NEEDED?NO PUBLIC HEALTH REFERRAL NEEDED?NO HAS THE PATIENT BEEN EDUCATED REGARDING HIS/HER PLAN OF CARE?YES HAS THE PATIENT BEEN EDUCATED REGARDING PAIN, THE RISK FOR PAIN, THE IMPORTANCE OF EFFECTIVE PAIN MANAGEMENT, AND THE PAIN ASSESSMENT PROCESS?YES ADVANCE DIRECTIVE ADVANCE DIRECTIVE DISCUSSED WITH PATIENT:YES PT DOES NOT HAVE ANY ADVANCED DIRECTIVES AND SHE STATES SHE ALREADY HAS INFORMATION ON HCP. DECLINES ASSISTANCE AT THIS TIME. VITAL SIGNS WT 175.2 LBS, HT 66 IN, BMI 28.27 INDEX, BP 145/73 MM HG, HR 85 /MIN, RR 16 /MIN, TEMP 98.0 F, OXYGEN SAT % 98%, SAFE IN ENV? (Y/N) NO, NA INITIALS SC 13:17, REVIEWED BY: APPATIENT EXPRESSED SUICIDAL THOUGHTS/INCREASING DEPRESSION. THIS MILL SUPERVISOR PREFORMED A PHQ9 SCREEN AND NOTIFIED DR. WOO AND CHARGE NURSE Richard WALLACE. EXAMINATION GENERAL EXAMINATION: THE PATIENT IS ALERT, ORIENTED TIMES THREE AND COOPERATIVE. LUNGS ARE CLEAR TO AUSCULTATION. HEART SHOWS REGULAR RHYTHM, NO MURMURS AND NO GALLOPS. ASSESSMENTS MYALGIA - M79.1 (PRIMARY) TREATMENT MYALGIA MEDICATION: VALIUM TAB 10MG ORALLY (DIAZEPAM)JACQUE GRAYBETH 07/16/2020 2:02:52 PM > VERIFIED PETRLOIDAALFREDO R 07/16/2020 2:04:58 PM > ADMINSTERED COMPLETION OF PROCEDURAL VISIT WHEN MEETS CRITERIAPETRASALFREDO R 07/16/2020 3:01:42 PM > CRITERIA MET MED: PAIN NORCO TABLET 5MG/325MG ORALLY HYDROCODONE/ACETAMINOPHENDILEONARDO,NATALIE 07/16/2020 01:26:29 PM - GIVE TWO TABLETS ISAACSARAH 07/16/2020 2:03:13 PM > VERIFIED PETRLOIDAALFREDO R 07/16/2020 2:05:16 PM > ADMINISTERED OTHERS NOTES: 07/15/20 1305 PRE-PROCEDURE CALL COMPLETED. PT. DENIED CHANGES IN SURGICAL, HOSPITALIZATION OR FAMILY MEDICAL HISTORY. Gabrielle RAMÍREZ RN . PROCEDURES PAIN NURSING RECORD PROCEDURE IN ROOM 1421, PHYSICIAN IN ROOM 1434, START 1436, FINISH 1439, PHYSICIAN OUT OF ROOM 1439, OUT OF ROOM 1442, ECG N/A, PATIENT SHIELDED N/A, SAFETY STRAP N/A, PREP ALCOHOL DR. WOO, DRESSING TEGADERM LOC: LISEALFREDO R 07/16/2020 2:36:53 PM > 1. ALERT, ORIENTED RESP: PETRLOIDA,ALFREDO R 07/16/2020 2:36:55 PM > 1. REGULAR, NO DYSPNEA COLOR: PETRAS,ALFREDO R 07/16/2020 2:36:58 PM > 1. PINK SKIN: PETRLOIDA,ALFREDO R 07/16/2020 2:37:01 PM > 1. WARM, DRY POSITION: PETRLOIDA,ALFREDO R 07/16/2020 2:37:08 PM > 5. SITTING VITALS: PETRAS,ALFREDO R 07/16/2020 2:47:48 PM > 126/88, 73, 18, 97% COMPLETION OF PROCEDURE APPOINTMENT: POST PAIN 2, DRESSING SITE DRY AND INTACT, IV N/A, GAIT STEADY, TEACHING COMPLETED, PATIENT ACKNOWLEDGES UNDERSTANDING YES, PROCEDURE APPOINTMENT COMPLETED AT 1504 BY: Gabrielle LEZAMA RN PN TRIGGER POINT INJECTION WITH STEROIDS PRE PROCEDURE DIAGNOSIS 1. MYALGIA 2. PAIN AT BILATERAL LOW BACK AREA POST PROCEDURE DIAGNOSIS 1. MYALGIA 2. PAIN AT BILATERAL LOW BACK AREA PROCEDURE TRIGGER POINT INJECTION AT BILATERAL LOW BACK AREA SURGEON DR. RELL WOO BUFFER OPERATOR NONE ANESTHESIA LOCAL PRE PROCEDURE NOTE THE PATIENT HAS A HISTORY OF CHRONIC PAIN AT THE RIGHT AND LEFT LOW BACK AREA. I EVALUATED THE PATIENT AND REVIEWED THE CHART. THERE IS EVIDENCE OF BANDS OF TISSUE WITH RESTRICTION OF MOVEMENT AND PRESENCE OF TRIGGER POINT AT THE RIGHT AND LEFT LOW BACK AREA. I WENT OVER THE RISKS, ALTERNATIVES, AND BENEFITS ASSOCIATED WITH THIS PROCEDURE. THE PATIENT WOULD LIKE TO PROCEED AND GIVE CONSENT TO PERFORMED THE PROCEDURE. THE PATIENT DENIES UNEXPLAINABLE WEIGHT LOSS, FEVER, CHILLS, OR NEW CHANGES IN URINARY OR BOWEL CONTROL. THE PATIENT IS COVID-19 NEGATIVE DESCRIPTION OF PROCEDURE THE PATIENT WAS BROUGHT TO THE PROCEDURE ROOM AND PLACED IN THE SITTING POSITION. THE AREA WAS CLEANED WITH ALCOHOL. THE PROCEDURE WAS DONE USING ASEPTIC STERILE TECHNIQUE. A TIMEOUT WAS PERFORMED WHERE THE CONSENTED SITE WAS VERIFIED WITH EVERYONE IN THE ROOM. USING A 25-GAUGE NEEDLE, TRIGGER POINTS WERE INJECTED AT THE RIGHT AND LEFT LOW BACK AREA WITH A TOTAL OF 40 ML OF BUPIVACAINE 0.25% AND KENALOG 40 MG. THE MEDICATIONS WERE VERIFIED WITH THE NURSE. THERE WAS NO EVIDENCE OF BLOOD OR PARESTHESIA DURING THE PROCEDURE. THE PATIENT WAS SENT TO THE RECOVERY ROOM. THE PATIENT WAS MOVING THE EXTREMITIES AND DOING WELL. THERE WERE NO COMPLICATIONS DURING THE PROCEDURE. ESTIMATED BLOOD LOSS WAS LESS THAN 5 ML POST PROCEDURE NOTE THE PROCEDURE DONE WAS DISCUSSED WITH THE PATIENT. THE PATIENT WILL BE SEEN IN A FOLLOW UP IN THE NEXT FEW WEEKS. I AM LOOKING FOR LONG LASTING PAIN RELIEF FOR THE PATIENT WITH THIS INTERVENTION. INSTRUCTIONS WERE GIVEN, QUESTIONS WERE ANSWERED, AND THE PATIENT EXPRESSED UNDERSTANDING AND AGREES WITH THE PLAN. OTHER PERTINENT ISSUES WERE DISCUSSED WITH THE PATIENT AND THE STAFF. I, NATALIE CUETO, DOCUMENTED THE ABOVE INFORMATION ACTING A SCRIBE FOR DR. WOO. I HAVE REVIEWED THE ABOVE DOCUMENT, WRITTEN BY NATALIE CUETO, SCREEN PRINT OPERATOR, AND I VERIFY THAT IT IS ACCURATE PROCEDURE CODES 33695 INJ TRIGGER POINT 1/2 MUSCL DISPOSITION & COMMUNICATION FOLLOW UP FOLLOW UP WITH FISHER TRAP (REASON: POST TRIGGER POINT INJECTIONS BILATERAL LOW BACK) ELECTRONICALLY SIGNED BY RELL WOO MD, MD ON 07/19/2020 AT 04:32 PM EST DISCLAIMER : THIS IS A VISIT SUMMARY EXTRACTED FROM THE [employer] CHART. IT IS NOT A COPY OF THE [employer] PROGRESS NOTE. LAUREN
== END ==
LOC: M PAIN 13:00
PROVIDERS: ATTEND Anesthesiology
DX: M79.18 Myalgia, other site (principal); F17.210 Nicotine dependence, cigarettes, uncomplicated; F50.2 Bulimia nervosa; G43.909 Migraine, unspecified, not intractable, without status migrainosus; F32.9 Major depressive disorder, single episode, unspecified; F43.10 Post-traumatic stress disorder, unspecified; L40.9 Psoriasis, unspecified; Z79.84 Long term (current) use of oral hypoglycemic drugs; Z79.899 Other long term (current) drug therapy; Z79.891 Long term (current) use of opiate analgesic

== ENCOUNTER → 2020-10-12 | Outpatient (CLI) | payer OTHER ==
[~2020-10-12] MED LIST changes: -BUPIVACAINE HCL 0.25% 10ML VIAL As Ordered ONE; -BUPIVACAINE HCL 0.25% 30ML VIAL As Ordered ONE; -NORCO, ANEXSIA 5/325MG TABLET (HYDROcodone/ACETAMINOPHEN) As Ordered ONE; -TRIAMCINOLONE ACETONIDE SUSP 40 MG/ML VIAL (J3301) As Ordered ONE; -diazePAM 5MG TABLET As Ordered ONE
--- NOTE | 2020-10-14 01:29 | ECWPNPC ---
PATIENT NAME: CHARANJIT POST : 1985 GENDER: FEMALE VISIT DATE: 10/12/2020 DISCHARGE DATE: 10/12/20 1227 VISIT LOCKED DATE TIME: PHYSICIAN: RIGO DUBOIS RESOURCE: RIGO DUBOIS REASON FOR APPOINTMENT 1. POST TRIGGER POINT INJECTIONS BILATERAL LUMBAR HISTORY OF PRESENT ILLNESS GENERAL: HERE POST PROCEDURE FOLLOW-UP AND MEDICATION MANAGEMENT FOR CHRONIC LOW BACK PAIN. FELL OFF A HORSE 4 DAYS AGO FRACTURING HER FINGER AND INJURING HER ARM. PAIN HAS INCREASED IN THE THORACIC AND LUMBAR REGION. SHE IS VERY UNCOMFORTABLE. ACCOMPANIED IN THE ROOM WITH HER . DISCUSSED MEDICATION AND TREATMENT OPTIONS. BRINGS IN HER MEDICATION WHICH IS APPROPRIATE FOR WHAT WAS DISPENSED. -. FALL RISK SCREENING: SCREENING 10/08/2020 WENT TO THE ER BROKE HER MIDDLE FINGER ON RIGHT HAND. PAIN SCREENING: PATIENT HAS A COMPLAINT OF ACUTE OR CHRONIC PAIN :YES LOCATION OF PAIN:LOW BACK INTENSITY OF PAIN (SCALE OF 1 TO 10):8 WHAT DOES YOUR PAIN FEEL LIKE:ACHING, TENDER, THROBBING, SORE DURATION:CONTINOUS, CONSTANT, ALL DAY, AWAKENS FROM SLEEP PAIN IS INCREASED BY:ACTIVITIES EVERYTHING PAIN IS DECREASED BY:USE OF PAIN MEDICATIONS NURSING NOTE: -. PAIN CENTER INTAKE QUESTIONS: DO YOU HAVE A HISTORY OF MRSA? :NO DO YOU TAKE A BLOOD THINNERS? :NO DO YOU HAVE ANY BLEEDING DISORDERS? :NO ANY NEW NUMBNESS OR WEAKNESS IN YOUR LEGS OR ARMS? :NO ANY PACEMAKER,DEFIBRILLATOR, OR DORSAL COLUMN STIMULATOR? :NO DO YOU HAVE ANY RASHES OR OPEN SORES? :NO ARE YOU ALLERGIC TO IV DYE? :NO ARE YOU DIABETIC? :NO TAKES METFORMIN FOR PCOS ANY NEW PROBLEMS WITH YOUR MEDICATIONS? :NO HAVE YOU RECEIVED A VACCINE IN THE PAST 30 DAYS? :YES 1ST COVID SHOT 10/06/2020 DO YOU PLAN TO RECEIVE A VACCINE IN THE NEXT 21 DAYS? :YES IF SO WHAT VACCINE AND WHEN? 2ND COVID 10/26/2020 DO YOU NEED ANY PRESCRIPTION? :NO DO YOU TAKE ANY IMMUNOSUPPRESSIVE MEDICATIONS? :NO IS THERE A CHANCE YOU COULD BE ? :NO ARE YOU BREAST FEEDING? :NO CURRENT MEDICATIONS TAKING CALCIUM + D 600-200 MG-UNIT TABLET 1 TABLET ORALLY ONCE A DAY TAKING CLONIDINE HCL 0.3 MG TABLET 1 TAB ORALLY ONCE A DAY TAKING BENADRYL 25 MG ORAL 3 TABLETS DIRECTED TAKING XANAX 1 MG TABLET 1 TABLET ORALLY BID TAKING ALPRAZOLAM ER 2 MG TABLET EXTENDED RELEASE 24 HOUR 1 TABLET IN THE MORNING ORALLY ONCE A DAY TAKING GABAPENTIN 300 MG CAPSULE 1 CAPSULE ORALLY BID TAKING LINZESS 290 MCG CAPSULE 1 CAPSULE ORALLY ONCE A DAY TAKING ALBUTEROL SULFATE HFA 108 (90 BASE) MCG/ACT AEROSOL SOLUTION 1 PUFF NEEDED INHALATION EVERY 4 HRS TAKING BUSPIRONE HCL 15 MG TABLET 1 TABLET ORALLY TWICE A DAY TAKING TRAZODONE HCL 50 MG TABLET 1 TABLET AT BEDTIME NEEDED ORALLY ONCE A DAY, NOTES: OVER A WEEK TAKING METFORMIN HCL ER 500 MG TABLET EXTENDED RELEASE 24 HOUR 1 TAB ORALLY DAILY AT BEDTIME TAKING COLACE 100 MG CAPSULE 1 CAPSULE NEEDED ORALLY BID TAKING VITAMIN C 500 MG TABLET 1 TABLET ORALLY ONCE A DAY TAKING HYDROCODONE-ACETAMINOPHEN 5-325 MG TABLET 1 TABLET NEEDED ORALLY Q8H PRN MDD3 NOT-TAKING FLUVOXAMINE MALEATE 100 MG TABLET 1 TABLET AT BEDTIME ORALLY TWICE A DAY NOT-TAKING EX-LAX 15 MG TABLET 1 TABLET AT BEDTIME NEEDED ORALLY DAILY NOT-TAKING VENLAFAXINE HCL ER 75 MG CAPSULE EXTENDED RELEASE 24 HOUR ORALLY ONCE A DAY NOT-TAKING PROBIOTIC TABLET DELAYED RELEASE 1 CAPSULE ORALLY DAILY NOT-TAKING SELEGILINE HCL 5 MG TABLET 1 TABLET WITH BREAKFAST AND LUNCH ORALLY TWICE A DAY NOT-TAKING SINGULAIR 10 MG TABLET 1 TABLET IN THE EVENING ORALLY ONCE A DAY NOT-TAKING TRAMADOL HCL 50 MG TABLET 1/2 - 1 TABLET ORALLY EVERY 6 -8 HRS PRN PAIN NOT-TAKING DICLOFENAC POTASSIUM 50 MG TABLET 1 TABLET ORALLY TWICE A DAY, NOTES: NONE RECENT-DIDN'T HELP MEDICATION LIST REVIEWED AND RECONCILED WITH THE PATIENT PAST MEDICAL HISTORY SCOLIOSIS - MINIMAL DEXTRO-CONVEX CURVATURE - SCOLIOSIS SERIES ON 01/2009 ENDOMETRIOSIS ON LUPRON FOR INTERMITT 2 YEARS/ S/P 2 LASER LAPROSCOPIES OSTEOPOROSIS/OSTEOPENIA DUE TO LUPRON RX/ DEXA SCAN ON 03/2009 LUMBAR SPINE NORMAL BMD FOR AGE OCD/ SOCIAL ANXIETY/ BULEMIA NERVOSA PURGING TYPE/ DEPRESSIVE DISORDER/ ANXIETY PSORIASIS/SEBORRHEIC DERMATITIS RIGHT HALLUX VALGUS DEFORMITY S/P RT BUNIONECTOMY 2010 GANGLION LEFT HAND- W/ NL RADIOGRAPH S/P SURGICALLY REMOVED BULIMIA NERVOSA PURGING TYPE POLYCYSTIC OVARIES MIGRAINE ALLERGIC RHINITIS SINUS INFECTION MDD CHRONIC PTSD LOW BACK PAIN ALLERGIES ENVIRONMENTAL: STUFFY NOSE, ITCHY EYES, SOMETIMES HIVES TYLENOL: CONTRAINDICATION DUE TO GENE MUTATION - CONTRAINDICATION DERMABOND: RASH - ONSET DATE 03/30/2020 SOY: RASH SURGICAL HISTORY LASER LAPAROSCOPY FOR ENDOMETRIOSIS WITH FINDING OF MINIMAL ENDOMETRIOSIS WISDOM TOOTH RT BUNIONECTOMY 07/2009 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 [id number] SEPTOPLASTY, ADENOIDECTOMY, BALLOON SINUPLASTY 08/2016 INVITRO FERT CYCLES WITH EGG EXTRACTIONS [id number] FIXING HER RIGHT HAND MIDDLE FINGER FRATURE 10/19/2020 SOCIAL HISTORY GENERAL: TOBACCO USE ARE YOU A:CURRENT SMOKER ARE YOU INTERESTED IN QUITTING?THINKING ABOUT QUITTING HAS CUT DOWN ON # OF CIGS/DAY COUNSELED THE PATIENT ON SMOKING CESSATION, EDUCATION LYETDSIO60/25/2021 HOW MANY CIGARETTES A DAY DO YOU SMOKE?5 OR LESS HOW SOON AFTER YOU WAKE UP DO YOU SMOKE YOUR FIRST CIGARETTE?AFTER 60 MIN HOW OFTEN DO YOU SMOKE CIGARETTES?SOME DAYS, BUT NOT EVERY DAY PATIENT COUNSELED ON THE DANGERS OF TOBACCO USE AND URGED TO QUIT:07/15/2020 ADDITIONAL FINDINGS: TOBACCO USER STATES CAN GO A LONG TIME WITHOUT SMOKING WITH NO SIDE EFFECTS SMOKING CESSATION INFORMATION GIVEN03/30/2020 LATEX QUESTIONNAIRE LATEX ALLERGY : HAVE YOU EVER DEVELOPED ANY TYPE OF REACTION AFTER HANDLING LATEX PRODUCTS SUCH RUBBER GLOVES, CONDOMS, DIAPHRAGMS, BALLOONS, SOCKS, OR UNDERWEAR?NO LATEX ALLERGY : HAVE YOU EVER DEVELOPED ANY TYPE OF REACTION DURING OR AFTER DENTAL APPOINTMENT, VAGINAL/RECTAL EXAMINATION, SURGICAL PROCEDURE, OR ANY OTHER EXPOSURE?NO LATEX RISK : HAVE YOU EVER HAD ANY DIFFICULTY BREATHING OR HIVES AFTER EATING OR HANDLING ANY FRUITS, OR VEGETABLES; SUCH KIWI, BANANAS, STONE FRUITS, OR CHESTNUTSNO LATEX RISK : DO YOU HAVE A PREVIOUS PERSONAL HISTORY OF MORE THAN NINE SURGERIES, SPINA BIFIDA, OR REPEATED CATHERIZATIONS? NO LATEX RISK : ARE YOU FREQUENTLY EXPOSED TO LATEX PRODUCTS IN YOUR OCCUPATION?NO DATE ASKED : 10/12/2020 ALCOHOL USE: YES, SOMETIMES. ALCOHOL SCREENING DID YOU HAVE A DRINK CONTAINING ALCOHOL IN THE PAST YEAR?YES HOW MANY DRINKS DID YOU HAVE ON A TYPICAL DAY WHEN YOU WERE DRINKING IN THE PAST YEAR?1 OR 2 (0 POINTS) HOW OFTEN DID YOU HAVE A DRINK CONTAINING ALCOHOL IN THE PAST YEAR?MONTHLY OR LESS (1 POINT) POINTS1 INTERPRETATIONNEGATIVE RECREATIONAL DRUG USE DRUG USE?NO CAFFEINE CAFFEINE USE?YES COFFEE SODA SEXUAL HX HAD SEX IN THE LAST 12 MONTHS (VAGINAL, ORAL, OR ANAL)?YES WITHMEN ONLY PREVENTION STRATEGIES DISCUSSED:OTHER USE PROTECTION?NO LMP:09/29/2016 HAVE YOU EVER HAD AN STD?NO HIV / HEP-C SCREENING HIV TEST OFFERED TO PATIENT:YES DATE OFFERED:05/29/2016 TEST ACCEPTED:NO HEP-C TEST OFFERED TO PATIENT:NO N/A REASON:PATIENT DECLINED ISLAM [id number] [employer] LANGUAGE LANGUAGES SPOKEN:BULGARIAN EDUCATION LEVEL OF EDUCATION:COLLEGE LEARNING BARRIERS / SPECIAL NEEDS CHANGE FROM LAST VISIT?NO BARRIERS TO LEARNING?NO HEARING IMPAIRED?NO VISION IMPAIRED?YES :CORRECTIVE LENSES COGNITIVELY IMPAIRED?NO READINESS TO LEARN?YES LEARNING PREFERENCES?YES :HANDOUTS, DEMONSTRATION/VERBAL INSTRUCTION LEARNING CAPABILITIES PRESENT?YES EMOTIONAL BARRIERS?NO SPECIAL DEVICES?NO NEWSROOM INTERN NEEDED?NO DOMESTIC VIOLENCE DO YOU FEEL SAFE IN YOUR ENVIRONMENT?YES DIET: REGULAR. EXERCISE: WALKS. MARITAL STATUS: . - PFS REFERRAL NEEDED?NO CLERGY REFERRAL NEEDED?NO PUBLIC HEALTH REFERRAL NEEDED?NO HAS THE PATIENT BEEN EDUCATED REGARDING HIS/HER PLAN OF CARE?YES HAS THE PATIENT BEEN EDUCATED REGARDING PAIN, THE RISK FOR PAIN, THE IMPORTANCE OF EFFECTIVE PAIN MANAGEMENT, AND THE PAIN ASSESSMENT PROCESS?YES ADVANCE DIRECTIVE ADVANCE DIRECTIVE DISCUSSED WITH PATIENT:YES PT DOES NOT HAVE ANY ADVANCED DIRECTIVES AND SHE STATES SHE ALREADY HAS INFORMATION ON HCP. DECLINES ASSISTANCE AT THIS TIME. HOSPITALIZATION/MAJOR DIAGNOSTIC PROCEDURE MONO 2006 IN CHILDHOOD LUNG REASON [place] FOR EATING DISORDER 11/2019-02/2020 HYPOTENSION 11/2019 FALL AND HURT HER MIDDLE FINGER ON HER RIGTH HAND 10/08/2020 REVIEW OF SYSTEMS CONSTITUTIONAL: ANY RECENT FEVER NO . CHILLS NO . WEIGHT CHANGE OF UNKNOWN REASONS NO . GASTROENTEROLOGY: NEW UNEXPLAINABLE CHANGES IN BOWEL CONTROL NO . CONSTIPATION NO . GENITOURINARY: ANY NEW CHANGE IN BLADDER CONTROL? NO . NEUROLOGY: NEW ONSET DIZZINESS OR NEUROLOGICAL CHANGES NOT MENTIONED NO . NEW NUMBNESS OR PAIN PATTERNS NOT MENTIONED AND PERTINENT TO TODAY'S VISIT NO . CARDIOLOGY: NEW CHEST PRESSURE NO . PATIENT DENIES NO . RESPIRATORY: UNEXPLAINABLE COUGH NO . NEW SHORTNESS OF BREATH NO . VITAL SIGNS WT 175.2 LBS, HT 66 IN, BMI 28.27 INDEX, BP 133/81 MM HG, HR 90 /MIN, RR 18 /MIN, TEMP 95.1 F, OXYGEN SAT % 93%, SAFE IN ENV? (Y/N) YES, NA INITIALS AW 1133T.OSCAR CORREA. EXAMINATION GENERAL EXAMINATION: GENERALAPPEARS UNCOMFORTABLE. PSYCHAPPROPRIATE MOOD AND AFFECT . FACE:UNREMARKABLE. NECK:NO LYMPHADENOPATHY, SUPPLE. LUNGS:CLEAR TO AUSCULTATION BILATERALLY, NO WHEEZES, RHONCHI, RALES. HEART:NO MURMURS, REGULAR RATE AND RHYTHM. LUMBAR: TRIGGER POINTS: ELICITED WITH PALPATION OVER LUMBAR PARAVERTEBRAL MUSCLES. RESTRICTION OF ROM IN THIS AREA IS NOTED. THORACIC SPINE:TRIGGER POINTS: ELICITED WITH PALPATION OVER MID THORACIC MUSCLES WITH AGGREVATION IN PAIN IN THIS REGION WITH ROJM SPINE. ASSESSMENTS OTHER CHRONIC PAIN - G89.29 (PRIMARY) MYALGIA, OTHER SITE - M79.18 ACUTE MIDLINE THORACIC BACK PAIN - M54.6 TREATMENT OTHER CHRONIC PAIN REFILL HYDROCODONE-ACETAMINOPHEN TABLET, 5-325 MG, 1 TO 2 TAB, ORALLY, Q8H PRN MDD6, 30 DAYS, 140, REFILLS 0 LAB: URINE TEST GROUP REID RUSSO 10/12/2020 12:16:15 PM > LAST DOSE: HYDROCODONE 10/12/2020 AT 0700 PAIN PROCEDURE LOGDATE OF PROCEDURE07/16/2020ROCEDURE:TRIGGER POINT INJECTION BILATERAL LOW BACKAMOUNT OF PRE SEDATEVALIUM 10MG, NORCO 5-325MGRESULT:ARCH REDUCTION IN PAIN UNTIL FALL INJURY 4 DAYS AGO MEDICATION: VALIUM TAB 10MG ORALLY (DIAZEPAM) (ORDERED FOR 10/19/2020) MED: PAIN NORCO TABLET 5MG/325MG ORALLY HYDROCODONE/ACETAMINOPHEN (ORDERED FOR 10/19/2020) NOTES: TRIGGER POINT INJECTIONS BILATERAL THORACIC, BILATERAL LUMBAR , ISTOP REGISTRY REVIEWED AND DEMONSTRATES COMPLLIANCE. BRINGS IN MEDICATIONS WHICH IS APPROPRIATE FOR WHAT WAS DISPENSED. RECENT URINE TOXICOLOGY REVIEWED. NO UNAUTHORIZED MEDICATIONS. NO ILLICIT SUBSTANCES AND PRESCRIBED MEDICATIONS WERE PRESENT. CLINICAL NOTES: PREPROCEDURE AND PROCEDURE INFORMATION PRINTED AND PROVIDED TO PATIENT. PATIENT VERBALIZED AN UNDERSTANDING. REID RUSSO MA. PROCEDURE CODES [id number] ESTABILISHED PATIENT [facility] CHARGE DISPOSITION & COMMUNICATION FOLLOW UP POST (REASON: TRIGGER POINT INJECTIONS BILATERAL THORACIC, BILATERAL LUMBAR) ELECTRONICALLY SIGNED BY SANA HERNANDEZ ON 10/13/2020 AT 02:25 PM EDT DISCLAIMER : THIS IS A VISIT SUMMARY EXTRACTED FROM THE [employer] CHART. IT IS NOT A COPY OF THE [employer] PROGRESS NOTE. MTDD
== END ==
LOC: M PAIN 11:15
PROVIDERS: ATTEND Nurse Practitioner Family
DX: G89.29 Other chronic pain (principal); M79.18 Myalgia, other site; M54.6 Pain in thoracic spine; L82.1 Other seborrheic keratosis; L40.9 Psoriasis, unspecified; M41.9 Scoliosis, unspecified; M81.0 Age-related osteoporosis without current pathological fracture; E28.2 Polycystic ovarian syndrome; G43.909 Migraine, unspecified, not intractable, without status migrainosus; F32.9 Major depressive disorder, single episode, unspecified; F41.9 Anxiety disorder, unspecified; Z79.84 Long term (current) use of oral hypoglycemic drugs; Z79.899 Other long term (current) drug therapy; Z79.891 Long term (current) use of opiate analgesic; F17.210 Nicotine dependence, cigarettes, uncomplicated; Z88.6 Allergy status to analgesic agent; Z91.048 Other nonmedicinal substance allergy status; Z91.018 Allergy to other foods

== ENCOUNTER → 2020-12-30 | Outpatient (CLI) | payer OTHER ==
[~2020-12-30] MED LIST changes: +ERGO500029; -VITA50005
== END ==
LOC: M LABSMTC 12:54
PROVIDERS: ATTEND Anesthesiology
DX: Z20.822 Contact with and (suspected) exposure to COVID-19 (principal)

== ENCOUNTER → 2021-01-03 | Outpatient (CLI) | payer OTHER ==
[~2021-01-03] MED LIST changes: +BUPIVACAINE HCL 0.25% 10ML VIAL As Ordered ONE; +BUPIVACAINE HCL 0.25% 30ML VIAL As Ordered ONE; +NORCO, ANEXSIA 5/325MG TABLET (HYDROcodone/ACETAMINOPHEN) As Ordered ONE; +TRIAMCINOLONE ACETONIDE SUSP 40 MG/ML VIAL (J3301) As Ordered ONE; +diazePAM 5MG TABLET As Ordered ONE; +oxyCODONE 5MG TAB As Ordered ONE
== END ==
LOC: M PAIN 14:00
PROVIDERS: ATTEND Anesthesiology
DX: M79.18 Myalgia, other site (principal); M81.0 Age-related osteoporosis without current pathological fracture; F50.2 Bulimia nervosa; F40.10 Social phobia, unspecified; F42.9 Obsessive-compulsive disorder, unspecified; F32.9 Major depressive disorder, single episode, unspecified; F41.9 Anxiety disorder, unspecified; J30.9 Allergic rhinitis, unspecified; L21.9 Seborrheic dermatitis, unspecified; G43.909 Migraine, unspecified, not intractable, without status migrainosus; F17.210 Nicotine dependence, cigarettes, uncomplicated; Z79.891 Long term (current) use of opiate analgesic; Z79.899 Other long term (current) drug therapy; Z88.6 Allergy status to analgesic agent; Z91.048 Other nonmedicinal substance allergy status
CPT/HCPCS: 20553; J3301

== ENCOUNTER → 2021-02-03 | Outpatient (CLI) | payer OTHER ==
[~2021-02-03] MED LIST changes: -BUPIVACAINE HCL 0.25% 10ML VIAL As Ordered ONE; -BUPIVACAINE HCL 0.25% 30ML VIAL As Ordered ONE; -NORCO, ANEXSIA 5/325MG TABLET (HYDROcodone/ACETAMINOPHEN) As Ordered ONE; -TRIAMCINOLONE ACETONIDE SUSP 40 MG/ML VIAL (J3301) As Ordered ONE; -diazePAM 5MG TABLET As Ordered ONE; -oxyCODONE 5MG TAB As Ordered ONE
== END ==
LOC: M PAIN 11:45
PROVIDERS: ATTEND Anesthesiology
DX: G89.29 Other chronic pain (principal); M47.812 Spondylosis without myelopathy or radiculopathy, cervical region; M54.2 Cervicalgia; M79.18 Myalgia, other site; M41.9 Scoliosis, unspecified; F50.2 Bulimia nervosa; E28.2 Polycystic ovarian syndrome; G43.909 Migraine, unspecified, not intractable, without status migrainosus; F32.9 Major depressive disorder, single episode, unspecified; F43.10 Post-traumatic stress disorder, unspecified; M54.5 Low back pain; N80.9 Endometriosis, unspecified; L21.9 Seborrheic dermatitis, unspecified; L40.9 Psoriasis, unspecified; F17.210 Nicotine dependence, cigarettes, uncomplicated; Z79.891 Long term (current) use of opiate analgesic; Z79.899 Other long term (current) drug therapy; Z91.018 Allergy to other foods; Z91.048 Other nonmedicinal substance allergy status

== ENCOUNTER → 2021-03-29 | Outpatient (CLI) | payer OTHER | LOC: M PAIN 15:30 | PROVIDERS: ATTEND Anesthesiology | DX: M47.812 Spondylosis without myelopathy or radiculopathy, cervical region (principal); M54.2 Cervicalgia; M79.18 Myalgia, other site; M81.0 Age-related osteoporosis without current pathological fracture; L21.9 Seborrheic dermatitis, unspecified; F50.2 Bulimia nervosa; G43.909 Migraine, unspecified, not intractable, without status migrainosus; F32.9 Major depressive disorder, single episode, unspecified; F43.10 Post-traumatic stress disorder, unspecified; M54.50 Low back pain, unspecified; F17.210 Nicotine dependence, cigarettes, uncomplicated; Z79.84 Long term (current) use of oral hypoglycemic drugs; Z79.891 Long term (current) use of opiate analgesic; Z79.899 Other long term (current) drug therapy; J30.1 Allergic rhinitis due to pollen; Z88.8 Allergy status to other drugs, medicaments and biological substances; Z91.018 Allergy to other foods ==